=== PATIENT | male | born 1945 | race Caucasian/White ===

== ENCOUNTER 2017-04-11 14:56 | Emergency (ER) | payer MEDICARE, MEDICAID ==
[~2017-04-11] VITALS: Ht 165.1 cm; Wt 136.2 kg
[~2017-04-11 14:56] MED LIST: ADV1DS IH; ALBU8.5H2 IH; AMLO5TAB2 PO; ASP81TEC PO; ATOR40TA PO; BACL10TA PO; CITA10TA70 PO; CLON0.252 PO; CLON0.253 PO; CLON0.5T3 PO; CLON1TAB2 PO; CLON1TAB36 PO; ENAL5TAB PO; GBPN100C PO; GBPN300C PO; GBPN600T PO; LEVO175T31 PO; MAGN400T6 PO; METO-333 PO; OXYC-12 PO; OXYC1TAB95 PO; OXYC20TA63 PO; POLY17PO23 PO; PRD10T PO; PREG150C PO
[2017-04-11] MEDS ORDERED: ORPHENADRINE 60 MG/2 ML (NORFLEX) AMP IM STA (17:30)
[2017-04-11] MEDS ORDERED: morphine INJ 10 MG/ML 1ML (SYR OR VIAL) IM STA (17:30)
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
--- NOTE | 2017-04-11 19:06 | Diagnostic Imaging Report ---
PROCEDURE: CT lumbar spine without contrast. TECHNIQUE: Multiple contiguous axial images were obtained through the lumbar spine without the use of intravenous contrast. Sagittal and coronal reformations were then performed. INDICATION: History of lower back surgery with right leg weakness for one week, left leg paralysis. COMPARISON STUDIES: None FINDINGS: S-shaped scoliosis is present within the spine. Postoperative changes are present to the sacrum and ilium bilaterally. There appears to be some edema around the upper pole of the left kidney. Arteriosclerosis is present. No hydronephrosis seen. There is some wedging of the T11 and T12 vertebral bodies which appears to be chronic or possibly congenital. The L3-4 level demonstrates mild facet arthropathy. Mild narrowing of the right neural foramina and central canal present. The L4-5 level demonstrates vacuum disc with disc space narrowing and facet arthropathy. There is some hypertrophy of the ligamentum flavum. Moderate narrowing of the central canal and mild narrowing of the right neural foramina are present. L5-S1 level demonstrates facet arthropathy. There is mild to moderate narrowing of the left neural foramina. IMPRESSION: 1. Scoliosis and degenerative changes present in the lumbar spine as above. 2. There is some edema around the upper pole of the left kidney. 3. There is wedging of the T11 and T12 vertebral bodies which appears chronic or congenital. Dictated by: Dictated on workstation # [id number]
[2017-04-11 21:05] VITALS: BP 129/73
[2017-04-12] MEDS ORDERED: METF500T4 PO (13:52)
[2017-04-12] MEDS ORDERED: BACL10TA PO (13:52)
[2017-04-12] MEDS ORDERED: CITA40TA11 PO (13:52)
[2017-04-12] MEDS ORDERED: ASPI-983 PO (13:52)
[2017-04-12] MEDS ORDERED: ALBU18HF2 INH (13:52)
[2017-04-12] MEDS ORDERED: FURO20TA4 PO (13:52)
[2017-04-12] MEDS ORDERED: POTA10TA10 PO (13:52)
[2017-04-12] MEDS ORDERED: PREG225C PO (13:52)
[2017-04-12] MEDS ORDERED: CLON0.5T3 PO (13:52)
[2017-04-12] MEDS ORDERED: SODI30SP2 NS (13:52)
[2017-04-12] MEDS ORDERED: ATOR40TA70 PO (13:52)
[2017-04-12] MEDS ORDERED: CLON1TAB3 PO (13:52)
[2017-04-12] MEDS ORDERED: ALTERIL SLEEP AID PO (13:52)
[2017-04-12] MEDS ORDERED: LEVO150T6 PO (13:52)
[2017-04-12] MEDS ORDERED: CLON0.252 PO (13:52)
[2017-04-12] MEDS ORDERED: METO-333 PO (13:52)
[2017-04-12] MEDS ORDERED: RANI150T11 PO (13:52)
[2017-04-12] MEDS ORDERED: OXYC-465 PO (13:52)
[2017-04-22] MEDS ORDERED: PRD20T PO (08:14)
[2017-04-22] MEDS ORDERED: DOCU100C37 PO (08:14)
== END 2017-04-11 21:40 ==
LOC: EDUNIT# 14:56 → ER 14:57
DX: M47.26 Other spondylosis with radiculopathy, lumbar region (principal); M41.26 Other idiopathic scoliosis, lumbar region; G83.14 Monoplegia of lower limb affecting left nondominant side; E11.9 Type 2 diabetes mellitus without complications; I10 Essential (primary) hypertension; J44.9 Chronic obstructive pulmonary disease, unspecified; Z79.84 Long term (current) use of oral hypoglycemic drugs; Z79.82 Long term (current) use of aspirin; Z79.899 Other long term (current) drug therapy
CPT/HCPCS: 72131; 96372; 99285

== ENCOUNTER 2017-04-11 21:00 | Inpatient (IN) | payer MEDICARE, MEDICAID ==
[~2017-04-11] VITALS: Ht 172.7 cm; Wt 135.2 kg
[2017-04-11] MEDS: oxyCODONE/APAP 10/325MG (PERCOCET 10) TABLET PO PRN (23:21)
[2017-04-12 00:03] VITALS: BP 104/54
[2017-04-12 05:35] VITALS: BP 134/74
[2017-04-12 05:58] LABS: BASOPHILS % (AUTO) 1 % (0-10); EOSINOPHILS # (AUTO) 0.2 10^3/uL (0.0-0.3); EOSINOPHILS % (AUTO) 3 % (0-10); LYMPHOCYTES # (AUTO) 1.9 X 10^3 (1.0-4.0); LYMPHOCYTES % (AUTO) 32 % (12-44); MEAN CORPUSCULAR HEMOGLOBIN 27 PG (25-34); MEAN CORPUSCULAR HGB CONC 30 G/DL (32-36); MEAN CORPUSCULAR VOLUME 91 FL (80-99); MEAN PLATELET VOLUME 11.1 FL (7.4-10.4); MONOCYTES # (AUTO) 0.6 X 10^3 (0.0-1.0); MONOCYTES % (AUTO) 11 % (0-12); NEUTROPHILS # (AUTO) 3.1 X 10^3 (1.8-7.8); NEUTROPHILS % (AUTO) 54 % (42-75); PLATELET COUNT 168 10^3/uL (130-400); RED BLOOD COUNT 4.13 10^6/uL (4.35-5.85); RED CELL DISTRIBUTION WIDTH 13.9 % (10.0-14.5); WHITE BLOOD COUNT 5.8 10^3/uL (4.3-11.0)
[2017-04-12] MEDS: predniSONE 20 MG TAB PO SCH (06:12)
[2017-04-12] MEDS: oxyCODONE/APAP 10/325MG (PERCOCET 10) TABLET PO PRN ×4 (06:12→21:22)
[2017-04-12 06:28] LABS: ALBUMIN 3.5 G/DL (3.2-4.5); BILIRUBIN,TOTAL 0.2 MG/DL (0.1-1.0); CALCIUM 8.6 MG/DL (8.5-10.1); CREATININE SERUM 1.23 MG/DL (0.60-1.30); POTASSIUM 4.4 MMOL/L (3.6-5.0); TOTAL PROTEIN 6.7 G/DL (6.4-8.2)
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
[2017-04-12] MEDS ORDERED: PREGABALIN 75 MG (LYRICA) CAP PO SCH (09:00)
[2017-04-12] MEDS ORDERED: morphine ER 15 MG (MS CONTIN) TAB PO SCH (09:00)
[2017-04-12] MEDS ORDERED: morphine ER 15 MG (MS CONTIN) TAB PO ONE (09:00)
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
--- NOTE | 2017-04-12 13:21 | Physical Therapy Progress Note ---
Therapy Progress Note PT in at scheduled time, 1300, for therapy, however, patient declined stating, "I want to eat and watch TV. You have all afternoon to come back and see me." PT educated patient on therapy schedule and expectations on acute rehab, however , patient dismissed PT. 1 visit ref DAMIR COLON PT April 12, 2017 13:21
[2017-04-12] MEDS ORDERED: FURO20TA4 PO (13:52)
[2017-04-12] MEDS ORDERED: POTA10TA10 PO (13:52)
[2017-04-12] MEDS ORDERED: ATOR40TA70 PO (13:52)
[2017-04-12] MEDS ORDERED: ALBU18HF2 INH (13:52)
[2017-04-12] MEDS ORDERED: ALTERIL SLEEP AID PO (13:52)
[2017-04-12] MEDS ORDERED: CLON0.5T3 PO (13:52)
[2017-04-12] MEDS ORDERED: CLON0.252 PO (13:52)
[2017-04-12] MEDS ORDERED: PREG225C PO (13:52)
[2017-04-12] MEDS ORDERED: METO-333 PO (13:52)
[2017-04-12] MEDS ORDERED: CITA40TA11 PO (13:52)
[2017-04-12] MEDS ORDERED: ASPI-983 PO (13:52)
[2017-04-12] MEDS ORDERED: LEVO150T6 PO (13:52)
[2017-04-12] MEDS ORDERED: RANI150T11 PO (13:52)
[2017-04-12] MEDS ORDERED: CLON1TAB3 PO (13:52)
[2017-04-12] MEDS ORDERED: BACL10TA PO (13:52)
[2017-04-12] MEDS ORDERED: OXYC-465 PO (13:52)
[2017-04-12] MEDS ORDERED: SODI30SP2 NS (13:52)
[2017-04-12] MEDS ORDERED: METF500T4 PO (13:52)
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
[2017-04-12] MEDS ORDERED: [UNRECOGNIZED DRUG - OTHER] PO PRN (15:00)
[2017-04-12] MEDS ORDERED: RX-ALBUTEROL INHALER (VENTOLIN HFA) 18 GM IH PRN (15:00)
[2017-04-12] MEDS ORDERED: SALINE NASAL SPRAY (OCEAN) 45 ML BTL NS PRN (15:00)
[2017-04-12] MEDS ORDERED: RT-ALBUTEROL SULF 2.5 MG/3 ML PRE-MIX VIAL IH PRN (15:15)
[2017-04-12] MEDS: clonazePAM 0.5 MG (KlonoPIN) TAB PO SCH ×2 (16:07)
--- NOTE | 2017-04-12 16:31 | Physical Therapy Daily Note ---
PT Daily Note-Current Subjective Pt laying Supine in bed with head raised upon arrival. Pt reports extreme pain in R hip/Sciatic radiating into calf and L calf cramping like [place]. Pt agrees to Supine Ex and stretching for PT. Pain Numeric Pain Scale: 10-Worst Possible Pain Location: Right Location Body Site: Hip Pain Description: Sharp Comment: See Subjective for comment Mental Status Patient Orientation: Person, Place, Time, Situation Attachments: Oxygen Transfers Functional [place] Measure 0=Not Assessed/NA 4=Minimal Assistance 1=Total Assistance 5=Supervision or Setup 2=Maximal Assistance 6=Modified [place] 3=Moderate Assistance 7=Complete IndependenceIRFPAI Quality Coding Scale 6 Independent with activity with or without an assistive device 5 Patient requires set up or clean up by helper. Patient completes activity by themselves 4 Supervision or touching assist (CGA). [place] provide cues , steadying assist 3 The helper provides less than half the effort to complete the activity 2 The helper provides more than half the effort to complete the activity 1 Dependent. The helper does all the effort to complete an activity 7 Patient refused to complete or attempt activity 9 The patient did not perform the activity before the current illness or injury 88 Not attempted due to Medical conditions or safety concerns Scootin Exercises Supine Ex: Ankle pumps, Quad Set, Heel Slides, Straight leg raise, Hip abd/add Supine Reps: 15 Treatments Pt completes Supine Ex in bed AROM with increase in pain on RLE and PROM-AAROM with increase in pain on LLE. Pt yells/grunts during tx. PT also stretches pt' s B hamstrings during tx. Pt is Supine in bed at end of tx with all needs met. Assessment Current Status: Poor Progress Pt is weak, has difficulty with ROM, and fatigues easy. Pt reports great pain during tx and will receive CT Scan after tx. PT Short Term Goals Short Term Goals Time Frame: Apr 19, 2017 Wheelchair (FIM): 5 Wheelchair distance (FIM): 3=150 ft Wheelchair Distance: 200' Wheelchair Level of Assist: 5 PT Senior Care Goals Senior Care Goals PT Geodetic Computator Goals Time Frame: May 10, 2017 Transfers (B,C,W/C) (FIM): 5 Sit to Lying (QC): 5 Lying-Sitting on Side/Bed(QC): 5 Sit to Stand (QC): 9 Rollin Roll Left to Right (QC): 5 Chair/Ofq-aj-Cumch Xfer(QC): 5 Car Transfer (QC): 9 Does the Patient Walk: No and Walking Goal NOT indicated Does the Pt use WC or Scooter?: Yes Wheelchair (FIM): 5 Wheelchair distance (FIM): 3=150 ft Distance: 300' Wheelchair Level of Assist: 5 Wheel 50 feet with 2 turns (QC: 5 1 Step (curb) (QC): 9 4 Steps (QC): 9 12 Steps (QC): 9 Picking up an Object (QC): 4 PT Plan Problem List Problem List: Activity Tolerance, Functional Strength, Safety, Balance, Gait, Transfer, Bed Mobility, ROM Treatment/Plan Treatment Plan: Continue Plan of Care Treatment Plan: Bed Mobility, Education, Functional Activity Carolyn, Functional Strength, Group Therapy, Safety, Therapeutic Exercise, Transfers Treatment Duration: May 10, 2017 Visits Per Week: 11 Minutes/Day (M-F): 60-90 Minutes/Day (Sat/Adame): PRN Safety Risks/Education Patient Education: Transfer Techniques, Correct Positioning, Disease Process, Safety Issues Teaching Recipient: Patient Teaching Methods: Discussion Response to Teaching: Verbalize Understanding Time/GCodes Time In: 1430 Time Out: 1500 Total Billed Treatment Time: 30 Total Billed Treatment visit, EX x2 (30m) MEGHANA FERNÁNDEZ PTA April 12, 2017 16:31
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
[2017-04-12] MEDS: metFORMIN 500 MG (GLUCOPHAGE) TAB PO SCH (17:47)
[2017-04-12 17:56] VITALS: BP 148/54
[2017-04-12] MEDS: BACLOFEN 10 MG (LIORESAL) TAB PO PRN (18:03)
[2017-04-12] MEDS ORDERED: clonazePAM 0.5 MG (KlonoPIN) TAB PO SCH (21:00)
[2017-04-12] MEDS ORDERED: meTOprolol TARTRATE 25 MG (LOPRESSOR) TABLET PO SCH (21:00)
[2017-04-12] MEDS: meTOprolol TARTRATE 25 MG (LOPRESSOR) TABLET PO SCH (21:22)
[2017-04-12] MEDS: clonazePAM 1 MG (KlonoPIN) TAB PO SCH (21:22)
[2017-04-12] MEDS: PREGABALIN 75 MG (LYRICA) CAP PO SCH (21:22)
[2017-04-12] MEDS: ATORVASTATIN 40 MG (LIPITOR) TABLET PO SCH (21:22)
--- NOTE | 2017-04-12 21:44 | PM&R Post Admission Assessment ---
Post Admission Physician Asses The preadmission screen agrees with the post admission assessment that the patient is a good candidate for inpatient rehabilitation. The patient will have a comprehensive program of inpatient rehabilitation with a goal of maximizing level of functional independence prior to discharge [facility]ck to [facility] The patient will have PT/OT ninety minutes per day, each discipline, five days a week for gait strengthening, conditioning, balance, ADLs, any patient/family/caregiver training necessary. Speech therapy to do cognitive assessment and treat as indicted. Rehabilitation nursing to assist with bowel, bladder, skin, wound care, medication administration, pain management. Painting Manager to assist with discharge planning, community reentry. SCD's for DVT prophylaxis. He appears to be well motivated to participate in three hours of therapy a day. He should be able to tolerate three hours of therapy a day from a medical standpoint. He should benefit from the three hours of therapy a day. He has a reasonable discharge plan, reasonable discharge rehabilitation goals and a supportive family. He has various comorbidities that need to be closely monitored with medications and treatments adjusted on a daily basis as needed. These include: DM Chronic pain NeuropTHIC PAIN Barriers to discharge for this patient who had been independent prior to this are for him to be modified independent to supervision for ADLs and mobility skills prior to discharge BACK TO [facility], so as to lessen the burden of the caregivers. Risks for this patient include: 1. Fall 2. Fracture 3. DVT 4. Pulmonary embolism 5. pOORLY CONTROLLED dm 6. Skin breakdown 7. Contractures 8. Poorly controlled pain 9. Urinary retention 10. UTI 11. Respiratory infection 12. Aspiration Estimated Length of Stay: 14 days Prognosis: Rehab prognosis appears good for goal of discharge BACK TO [facility] modified independent to supervision for ADLs and mobility skills. HARLEY NELSON MD April 12, 2017 21:44
[2017-04-12] MEDS: RT-ADVAIR HFA 115/21 MCG PER PUFF IH SCH (23:01)
[2017-04-13 05:27] VITALS: BP 129/73
[2017-04-13] MEDS: KCL 10 MEQ TAB (MICRO K) PO SCH (06:20)
[2017-04-13] MEDS: predniSONE 20 MG TAB PO SCH (06:21)
[2017-04-13] MEDS: metFORMIN 500 MG (GLUCOPHAGE) TAB PO SCH ×2 (06:21→17:55)
[2017-04-13] MEDS: LEVOTHYROXINE 150 MCG (LEVOTHROID) TAB PO SCH (06:21)
[2017-04-13 06:45] LABS: MEAN PLATELET VOLUME 11.1 FL (7.4-10.4); RED BLOOD COUNT 4.08 10^6/uL (4.35-5.85); WHITE BLOOD COUNT 9.2 10^3/uL (4.3-11.0)
[2017-04-13] MEDS: RT-ADVAIR HFA 115/21 MCG PER PUFF IH SCH ×2 (06:45→18:46)
[2017-04-13 07:06] LABS: ANION GAP 11 MMOL/L (5-14); BLOOD UREA NITROGEN 21 MG/DL (7-18); BUN/CREATININE RATIO 20; CALCIUM 8.6 MG/DL (8.5-10.1); CARBON DIOXIDE 29 MMOL/L (21-32); CHLORIDE 102 MMOL/L (98-107); CREATININE SERUM 1.07 MG/DL (0.60-1.30); GFR ESTIMATED > 60; GLUCOSE 118 MG/DL (70-105); SODIUM 142 MMOL/L (135-145)
[2017-04-13 07:28] LABS: THYROID STIMULATING HORMONE 0.37 UIU/ML (0.35-4.94)
[2017-04-13] MEDS ORDERED: clonazePAM 0.5 MG (KlonoPIN) TAB PO SCH ×2 (08:00)
[2017-04-13] MEDS: clonazePAM 0.5 MG (KlonoPIN) TAB PO SCH ×4 (08:08→13:14)
[2017-04-13] MEDS: PREGABALIN 75 MG (LYRICA) CAP PO SCH ×2 (08:11→20:26)
[2017-04-13] MEDS: FUROSEMIDE 20 MG (LASIX) TAB PO SCH (08:12)
[2017-04-13] MEDS: FAMOTIDINE 20 MG (PEPCID) TABLET PO SCH (08:12)
[2017-04-13] MEDS: ASPIRIN E.C. 81 MG (ECOTRIN) TAB PO SCH (08:13)
[2017-04-13] MEDS: meTOprolol TARTRATE 25 MG (LOPRESSOR) TABLET PO SCH ×2 (08:13→20:27)
[2017-04-13] MEDS: oxyCODONE/APAP 10/325MG (PERCOCET 10) TABLET PO PRN ×3 (08:18→20:26)
--- NOTE | 2017-04-13 08:34 | Progress Note (SOAP) ---
Subjective Subjective/Events-last exam lumbar radiculopathy. Sciatica. Patient feels she is doing better. Patient diabetes under good control. Patient lost much weight by diet Objective Exam Vital Signs Date Time Temp Pulse Resp B/P (MAP) Pulse Ox O2 Delivery O2 Flow Rate FiO2 04/13/17 06:45 97 4.00 04/13/17 05:27 97.3 63 18 129/73 97 4.00 04/12/17 23:01 86 4.00 04/12/17 20:15 3.00 04/12/17 17:56 97.5 76 20 148/54 95 2.50 I & O 04/13/17 07:00 Intake Total 1760 ml Output Total 1800 ml Balance -40 ml Capillary Refill : General Appearance: No Apparent Distress, WD/WN HEENT: Normal ENT Inspection Respiratory: Chest Non Tender Results Lab Laboratory Tests 04/13/17 06:00 Laboratory Tests 04/13/17 06:00: White Blood Count 9.2, Red Blood Count 4.08L, Hemoglobin 11.4L, Hematocrit 37L, Mean Corpuscular Volume 91, Mean Corpuscular Hemoglobin 28, Mean Corpuscular Hemoglobin Concent 31L, Red Cell Distribution Width 14.0, Platelet Count 198, Mean Platelet Volume 11.1H, Sodium Level 142, Potassium Level 4.0, Chloride Level 102, Carbon Dioxide Level 29, Anion Gap 11, Blood Urea Nitrogen 21H, Creatinine 1.07, Estimat Glomerular Filtration Rate > 60, BUN/Creatinine Ratio 20, Glucose Level 118H, Hemoglobin A1c 5.7, Calcium Level 8.6, Thyroid Stimulating Hormone (TSH) 0.37 Assessment/Plan Assessment/Plan Assess & Plan/Chief Complaint lumbar radiculopathy. Diabetes. Patient positive and wanting to work Clinical Quality Measures DVT/VTE Risk/Contraindication: Risk Factor Score Per Nursin RFS Level Per Nursing on Admit: 4+=Very High MILAD MULLER DO April 13, 2017 08:34
--- NOTE | 2017-04-13 09:30 | Physical Therapy Daily Note ---
PT Daily Note-Current Subjective Patient in bed pre tx, agrees to PT, has pain of 8/10 in right hip and 6/10 in left leg. PT will be getting and fitting a power wheelchair to patient this morning. Patient has his own power wheelchair at home and will talk with oncology social work and see if he can get that here. Appearance Patient in bed post tx with nurse call, phone, tray, all needs met. Mental Status Patient Orientation: Normal For Age Attachments: Oxygen Transfers Functional [place] Measure 0=Not Assessed/NA 4=Minimal Assistance 1=Total Assistance 5=Supervision or Setup 2=Maximal Assistance 6=Modified [place] 3=Moderate Assistance 7=Complete IndependenceIRFPAI Quality Coding Scale 6 Independent with activity with or without an assistive device 5 Patient requires set up or clean up by helper. Patient completes activity by themselves 4 Supervision or touching assist (CGA). [place] provide cues , steadying assist 3 The helper provides less than half the effort to complete the activity 2 The helper provides more than half the effort to complete the activity 1 Dependent. The helper does all the effort to complete an activity 7 Patient refused to complete or attempt activity 9 The patient did not perform the activity before the current illness or injury 88 Not attempted due to Medical conditions or safety concerns Transfers (B, C, W/C) (FIM): 2 Scootin Rollin Supine to/from Sit: 4 Sit to/from Stand: 2 Bed to/from Chair: 2 stand pivot max assist, patient has a lot of trouble pivoting on his right leg, he cannot bear much if any weight on his left leg Wheelchair Training Does the Pt Use a Wheelchair?: Yes Wheelchair (FIM): 2 Distance: 50'x2 Wheelchair Level of Assist: 5 Type of Wheelchair: Motorized Patient has a little trouble driving a rear drive wheelchair but he did not need assist. A bigger seatbelt will need to be put on the wheelchair and the foot rests are not comfortable because they do not extend. We also do not have an oxygen tank sling to go on the back but hopefully we can get one soon. Wheelchair was adjusted to patient as best as we could but is still very uncomfortable to patient and he did not want to stay in it for any length of time. Patient transferred back to bed. Treatments bed mobility and transfers, wheelchair mobility and adjusting Assessment Current Status: Fair Progress no change in transfers, wheelchair was obtained but patient probably will not be able to use it PT Short Term Goals Short Term Goals Time Frame: Apr 19, 2017 Wheelchair (FIM): 5 Wheelchair distance (FIM): 3=150 ft Wheelchair Distance: 200' Wheelchair Level of Assist: 5 PT Senior Care Goals Senior Care Goals PT Senior Care Goals Time Frame: May 10, 2017 Transfers (B,C,W/C) (FIM): 5 Sit to Lying (QC): 5 Lying-Sitting on Side/Bed(QC): 5 Sit to Stand (QC): 9 Rollin Roll Left to Right (QC): 5 Chair/Lvq-zf-Fjjfq Xfer(QC): 5 Car Transfer (QC): 9 Does the Patient Walk: No and Walking Goal NOT indicated Does the Pt use WC or Scooter?: Yes Wheelchair (FIM): 5 Wheelchair distance (FIM): 3=150 ft Distance: 300' Wheelchair Level of Assist: 5 Wheel 50 feet with 2 turns (QC: 5 1 Step (curb) (QC): 9 4 Steps (QC): 9 12 Steps (QC): 9 Picking up an Object (QC): 4 PT Plan Problem List Problem List: Activity Tolerance, Functional Strength, Safety, Balance, Transfer, Bed Mobility Treatment/Plan Treatment Plan: Continue Plan of Care Treatment Plan: Bed Mobility, Education, Functional Activity Carolyn, Functional Strength, Group Therapy, Safety, Therapeutic Exercise, Transfers Treatment Duration: May 10, 2017 Visits Per Week: 11 Minutes/Day (M-F): 60-90 Minutes/Day (Sat/Adame): PRN Safety Risks/Education Patient Education: Transfer Techniques, Correct Positioning, W/C Management, Safety Issues Teaching Recipient: Patient Teaching Methods: Demonstration, Discussion Response to Teaching: Reinforcement Needed Time/GCodes Time In: 830 Time Out: 930 Total Billed Treatment Time: 60 Total Billed Treatment 1 visit FA 15' WC 45' ADA CARRILLO PT April 13, 2017 09:30
--- NOTE | 2017-04-13 11:45 | Occupational Ther Daily Note ---
OT Current Status-Daily Note Subjective Pt alert, lying in bed. Pt finishing up breakfast. Pt agreed to therapy after encouragement. Pt c/o muscle spasms and ask nrsg for pain meds. Mental Status/Objective Patient Orientation: Person, Place, Time, Situation Functional [place] Measure 0=Not Assessed/NA 4=Minimal Assistance 1=Total Assistance 5=Supervision or Setup 2=Maximal Assistance 6=Modified [place] 3=Moderate Assistance 7=Complete [place] ADL-Treatment Pt stated that he wanted a sponge bath and that his back hurt to bad to sit on EOB. Pt took sponge bath. After set up, pt was able to bathe upper body and nasrin area. Pt required assistance for LE's and buttocks. Pt required assistance to position L LE when rolling to R side. Pt able to roll to L side with min A. After set up, pt able to don shirt by self. Pt requires assist to doff underwear. Assist to don lower body clothing over feet and pull up to knees then pt is able to pull up to stomach. Assist to pull up pants/ underpants over buttocks while he stayed in sidelying with bedrails. Dependent to don/doff socks. Pt took increased time to complete all ADLs. Nrsg came in and assisted HANSON to scoot pt up in bed. Pt demonstrates good UE ROM. After therapy, pt lying in bed with call light/phone in reach. All needs met in room. Functional [place] Measure 0=Not Assessed/NA 4=Minimal Assistance 1=Total Assistance 5=Supervision or Setup 2=Maximal Assistance 6=Modified [place] 3=Moderate Assistance 7=Complete IndependenceIRFPAI Quality Coding Scale 6 Independent with activity with or without an assistive device 5 Patient requires set up or clean up by helper. Patient completes activity by themselves 4 Supervision or touching assist (CGA). [place] provide cues , steadying assist 3 The helper provides less than half the effort to complete the activity 2 The helper provides more than half the effort to complete the activity 1 Dependent. The helper does all the effort to complete an activity 7 Patient refused to complete or attempt activity 9 The patient did not perform the activity before the current illness or injury 88 Not attempted due to Medical conditions or safety concerns Eating (FIM): 6 Eating (QC): 6 Bathing (FIM): 3 Bathing Location: L Arm, R Arm, Chest, Abdomen, Perineal Area Upper Body (FIM): 5 Upper Body Dressing (QC): 5 Lower Body Dressing (FIM): 3 Lower Body Dressing (QC): 2 OT Short Term Goals Short Term Goals Time Frame: Apr 26, 2017 Lower Body Dressing(FIM): 4 Toilet/Commode Transfer(FIM): 3 Shower Transfer(FIM): 3 Additional Short Term Goals: 2-Verbalize Understanding, 3-ImproveStrength/Carolyn 1=Demonstrate adherence to instructed precautions during ADL tasks. 2=Patient will verbalize/demonstrate understanding of assistive devices/ modifications for ADL. 3=Patient will improve strength/tolerance for activity to enable patient to perform ADL's. OT Financial Planning Analyst Goals Financial Planning Analyst Goals Time Frame: May 10, 2017 Eating (FIM): 7 Eating (QC): 7 Groomin Oral Hygiene (QC): 6 Bathing(FIM): 5 Shower/Bathe Self (QC): 5 Upper Body Dressing(FIM): 6 Upper Body Dressing (QC): 6 Lower Body Dressing(FIM): 6 Lower Body Dressing (QC): 6 On/Off Footwear (QC): 6 Toileting(FIM): 6 Toileting Hygiene (QC): 6 Toilet/Commode Transfer(FIM): 6 Toilet/Commode Transfer (QC): 6 Shower Transfer(FIM): 6 Additional Goals: 2-Verbalize Understanding, 3-ImproveStrength/Carolyn 1=Demonstrate adherence to instructed precautions during ADL tasks. 2=Patient will verbalize/demonstrate understanding of assistive devices/ modifications for ADL. 3=Patient will improve strength/tolerance for activity to enable patient to perform ADL's. OT Education/Plan Problem List/Assessment Pt would benefit from skilled OT to increase his independence in basic self care to allow him to safely return to his home to live as independently as possible and to decrease caregiver burden. Discharge Recommendations Plan/Recommendations: Continue POC Treatment Plan/Plan of Care Patient would benefit from OT for education, treatment and training to promote independence in ADL's, mobility, safety and/or upper extremity function for ADL' s. Plan of Care: ADL Retraining, Functional Mobility, Group Exercise/Act as Ind ( education, exercise, mobility, functional activities, socialization), UE Neuromus Re-Ed/Coord Treatment Duration: May 10, 2017 Visits Per Week: 10-11 Minutes/Day (M-F): 75-90 Minutes/Day (Sat/Adame): PRN Agreement: Yes Rehab Potential: Fair Time/GCodes Start Time: 07:00 Stop Time: 08:30 Total Time Billed (hr/min): 90 Billed Treatment Time 1 visit-ADL 6 (90 min) LELE LOZA April 13, 2017 11:45
--- NOTE | 2017-04-13 16:06 | Physical Therapy Daily Note ---
PT Daily Note-Current Subjective Pt laying Supine in bed upon arrival. Pt agrees to PT this afternoon. Pain Numeric Pain Scale: 8 Location: Right Location Body Site: Hip Pain Description: Sharp Comment: Pt reports Scaitic pain on R side and cramping pain in L thigh & calf. Mental Status Patient Orientation: Person, Place, Situation Attachments: Oxygen, Mclean Catheter Transfers Functional [place] Measure 0=Not Assessed/NA 4=Minimal Assistance 1=Total Assistance 5=Supervision or Setup 2=Maximal Assistance 6=Modified [place] 3=Moderate Assistance 7=Complete IndependenceIRFPAI Quality Coding Scale 6 Independent with activity with or without an assistive device 5 Patient requires set up or clean up by helper. Patient completes activity by themselves 4 Supervision or touching assist (CGA). [place] provide cues , steadying assist 3 The helper provides less than half the effort to complete the activity 2 The helper provides more than half the effort to complete the activity 1 Dependent. The helper does all the effort to complete an activity 7 Patient refused to complete or attempt activity 9 The patient did not perform the activity before the current illness or injury 88 Not attempted due to Medical conditions or safety concerns Exercises Supine Ex: Ankle pumps, Heel Slides, Straight leg raise, Hip abd/add Supine Reps: 15 Treatments Pt completes Supine Ex in bed as well as B hamstring stretching. Pt is Supine in bed at end of tx with all needs met. Assessment Current Status: Fair Progress Pt is reporting less consistent pain in both sides. Pt is improving with activity tolerance as well. PT Short Term Goals Short Term Goals Time Frame: Apr 19, 2017 Wheelchair (FIM): 5 Wheelchair distance (FIM): 3=150 ft Wheelchair Distance: 50'x2 Wheelchair Level of Assist: 5 PT Nursing Home Goals Wireless Watcher Goals PT Wireless Watcher Goals Time Frame: May 10, 2017 Transfers (B,C,W/C) (FIM): 5 Sit to Lying (QC): 5 Lying-Sitting on Side/Bed(QC): 5 Sit to Stand (QC): 9 Rollin Roll Left to Right (QC): 5 Chair/Gbk-ld-Szxyb Xfer(QC): 5 Car Transfer (QC): 9 Does the Patient Walk: No and Walking Goal NOT indicated Does the Pt use WC or Scooter?: Yes Wheelchair (FIM): 5 Wheelchair distance (FIM): 3=150 ft Distance: 300' Wheelchair Level of Assist: 5 Wheel 50 feet with 2 turns (QC: 5 1 Step (curb) (QC): 9 4 Steps (QC): 9 12 Steps (QC): 9 Picking up an Object (QC): 4 PT Plan Problem List Problem List: Activity Tolerance, Functional Strength, Safety, Balance, Gait, Transfer, Bed Mobility Treatment/Plan Treatment Plan: Continue Plan of Care Treatment Plan: Bed Mobility, Education, Functional Activity Carolyn, Functional Strength, Group Therapy, Safety, Therapeutic Exercise, Transfers Treatment Duration: May 10, 2017 Visits Per Week: 11 Minutes/Day (M-F): 60-90 Minutes/Day (Sat/Adame): PRN Safety Risks/Education Patient Education: Transfer Techniques, Correct Positioning, Disease Process, Safety Issues Teaching Recipient: Patient Teaching Methods: Discussion Response to Teaching: Verbalize Understanding Time/GCodes Time In: 1300 Time Out: 1330 Total Billed Treatment Time: 30 Total Billed Treatment visit, EX x2 (30m) MEGHANA FERNÁNDEZ PTA April 13, 2017 16:06
[2017-04-13 17:52] VITALS: BP 128/66
[2017-04-13] MEDS: ATORVASTATIN 40 MG (LIPITOR) TABLET PO SCH (20:27)
[2017-04-13] MEDS: clonazePAM 1 MG (KlonoPIN) TAB PO SCH (20:27)
[2017-04-13] MEDS: MELATONIN 3 MG TABLET PO PRN (20:30)
[2017-04-14] MEDS: oxyCODONE/APAP 10/325MG (PERCOCET 10) TABLET PO PRN ×5 (04:29→21:13)
[2017-04-14 05:24] VITALS: BP 131/75
[2017-04-14] MEDS: predniSONE 20 MG TAB PO SCH (06:03)
[2017-04-14] MEDS: KCL 10 MEQ TAB (MICRO K) PO SCH (06:03)
[2017-04-14] MEDS: LEVOTHYROXINE 150 MCG (LEVOTHROID) TAB PO SCH (06:03)
[2017-04-14] MEDS: metFORMIN 500 MG (GLUCOPHAGE) TAB PO SCH ×2 (06:03→16:43)
[2017-04-14] MEDS: RT-ADVAIR HFA 115/21 MCG PER PUFF IH SCH ×2 (07:23→19:05)
--- NOTE | 2017-04-14 08:06 | Progress Note (SOAP) ---
Subjective Subjective/Events-last exam lumbar radiculopathy. Sciatica. Pain is improving. Diabetes. Patient feels he is doing better Objective Exam Vital Signs Date Time Temp Pulse Resp B/P (MAP) Pulse Ox O2 Delivery O2 Flow Rate FiO2 04/14/17 07:23 95 4.00 04/14/17 05:24 96.8 57 16 131/75 97 4.00 04/13/17 20:05 4.00 04/13/17 18:47 92 4.00 04/13/17 17:52 97.8 51 20 128/66 96 4.00 I & O 04/14/17 07:00 Intake Total 1410 ml Output Total 1775 ml Balance -365 ml Capillary Refill : General Appearance: No Apparent Distress, WD/WN Assessment/Plan Assessment/Plan Assess & Plan/Chief Complaint lumbar radiculopathy. Diabetes. Patient positive and wanting to work. . 04/14/17. Lumbar radiculopathy. Diabetes. Pain is improving. Patient feels he is getting better Clinical Quality Measures DVT/VTE Risk/Contraindication: Risk Factor Score Per Nursin RFS Level Per Nursing on Admit: 4+=Very High MILAD MULLER DO Apr 14, 2017 08:06
[2017-04-14] MEDS: FUROSEMIDE 20 MG (LASIX) TAB PO SCH (08:36)
[2017-04-14] MEDS: clonazePAM 0.5 MG (KlonoPIN) TAB PO SCH ×4 (08:36→12:43)
[2017-04-14] MEDS: ASPIRIN E.C. 81 MG (ECOTRIN) TAB PO SCH (08:37)
[2017-04-14] MEDS: FAMOTIDINE 20 MG (PEPCID) TABLET PO SCH (08:37)
[2017-04-14] MEDS: PREGABALIN 75 MG (LYRICA) CAP PO SCH ×2 (08:37→20:23)
[2017-04-14] MEDS: meTOprolol TARTRATE 25 MG (LOPRESSOR) TABLET PO SCH ×2 (08:42→20:25)
--- NOTE | 2017-04-14 11:15 | Occupational Ther Daily Note ---
OT Current Status-Daily Note Subjective Pt seen in room, up in bed, agreeable to OT. Pt reported R leg pain is less today (did not rate or describe). Appearance Alert, cooperative Mental Status/Objective Functional [place] Measure 0=Not Assessed/NA 4=Minimal Assistance 1=Total Assistance 5=Supervision or Setup 2=Maximal Assistance 6=Modified [place] 3=Moderate Assistance 7=Complete [place] ADL-Treatment All ADLs took longer than usual due to frequent recovery periods needed, especially when he has been reaching forward to get to his feet. O2 at 4L today which is an increase. Functional [place] Measure 0=Not Assessed/NA 4=Minimal Assistance 1=Total Assistance 5=Supervision or Setup 2=Maximal Assistance 6=Modified [place] 3=Moderate Assistance 7=Complete IndependenceIRFPAI Quality Coding Scale 6 Independent with activity with or without an assistive device 5 Patient requires set up or clean up by helper. Patient completes activity by themselves 4 Supervision or touching assist (CGA). [place] provide cues , steadying assist 3 The helper provides less than half the effort to complete the activity 2 The helper provides more than half the effort to complete the activity 1 Dependent. The helper does all the effort to complete an activity 7 Patient refused to complete or attempt activity 9 The patient did not perform the activity before the current illness or injury 88 Not attempted due to Medical conditions or safety concerns Grooming (FIM): 5 (setup to wash face and hands. Combed hair indep.) Bathing (FIM): 4 (Sponge bath, long sitting in bed. Pt was able to wash and dry all parts except bottom and back. Able to roll to his L side without assistance to get bottom washed - he tried but was just not able to get it. ) Upper Body (FIM): 5 (setup to doff and don t-shirt, in bed. Uses bed rails to pull self up to sitting) Lower Body Dressing (FIM): 4 (Able to bridge slightly and roll enough to pull pants down and then move to long sitting to get pants off feet, supervision. Able to get slipper socks off and on. Able to get pants and underwear over feet in long sitting, using bed rails and HOB up. Can pull pants up to thighs and bridge a little on R side to help pull them up. Help needed to get pants up in back. He can roll to his L side without help, using bed rail but needs a little help to move L leg when rolling to his R side. ) Toileting (FIM): 5 (Able to use urinal and manage clothing, no spilling, in bed , but not able to empty urinal) Discussion on what he needs to be able to do in order to go back to [place]. Pt understands transfers will be significant for toileting, bathing and dressing. Pt left up in bed, 4 rails up, call light present, O2 in place, all needs met. Education OT Patient Education: Modified ADL techniques, Progress toward Goal/Update tx plan, Purpose of tx/functional activities Teaching Recipient: Patient Teaching Methods: Discussion Response to Teaching: Verbalize Understanding, Return Demonstration OT Short Term Goals Short Term Goals Time Frame: Apr 26, 2017 Lower Body Dressing(FIM): 4 Toilet/Commode Transfer(FIM): 3 Shower Transfer(FIM): 3 Additional Short Term Goals: 2-Verbalize Understanding, 3-ImproveStrength/Carolyn 1=Demonstrate adherence to instructed precautions during ADL tasks. 2=Patient will verbalize/demonstrate understanding of assistive devices/ modifications for ADL. 3=Patient will improve strength/tolerance for activity to enable patient to perform ADL's. OT Alf Goals Instructor [employer] Goals Time Frame: May 10, 2017 Eating (FIM): 7 Eating (QC): 7 Groomin Oral Hygiene (QC): 6 Bathing(FIM): 5 Shower/Bathe Self (QC): 5 Upper Body Dressing(FIM): 6 Upper Body Dressing (QC): 6 Lower Body Dressing(FIM): 6 Lower Body Dressing (QC): 6 On/Off Footwear (QC): 6 Toileting(FIM): 6 Toileting Hygiene (QC): 6 Toilet/Commode Transfer(FIM): 6 Toilet/Commode Transfer (QC): 6 Shower Transfer(FIM): 6 Additional Goals: 2-Verbalize Understanding, 3-ImproveStrength/Carolyn 1=Demonstrate adherence to instructed precautions during ADL tasks. 2=Patient will verbalize/demonstrate understanding of assistive devices/ modifications for ADL. 3=Patient will improve strength/tolerance for activity to enable patient to perform ADL's. OT Education/Plan Problem List/Assessment Pt would benefit from skilled OT to increase his independence in basic self care to allow him to safely return to his home to live as independently as possible and to decrease caregiver burden. Discharge Recommendations Plan/Recommendations: Continue POC Treatment Plan/Plan of Care Patient would benefit from OT for education, treatment and training to promote independence in ADL's, mobility, safety and/or upper extremity function for ADL' s. Plan of Care: ADL Retraining, Functional Mobility, Group Exercise/Act as Ind ( education, exercise, mobility, functional activities, socialization), UE Neuromus Re-Ed/Coord Treatment Duration: May 10, 2017 Visits Per Week: 10-11 Minutes/Day (M-F): 75-90 Minutes/Day (Sat/Adame): PRN Agreement: Yes Rehab Potential: Fair Time/GCodes Start Time: 08:30 Stop Time: 10:00 Total Time Billed (hr/min): 90 Billed Treatment Time visit, 90 minutes TIAGO TIM OT Apr 14, 2017 11:15
--- NOTE | 2017-04-14 12:00 | Physical Therapy Daily Note ---
PT Daily Note-Current Subjective Pt laying Supine in bed upon arrival. Pt agrees to PT and seems more agreeable to PT today. Mental Status Patient Orientation: Person, Place, Situation Attachments: Oxygen Transfers Functional [place] Measure 0=Not Assessed/NA 4=Minimal Assistance 1=Total Assistance 5=Supervision or Setup 2=Maximal Assistance 6=Modified [place] 3=Moderate Assistance 7=Complete IndependenceIRFPAI Quality Coding Scale 6 Independent with activity with or without an assistive device 5 Patient requires set up or clean up by helper. Patient completes activity by themselves 4 Supervision or touching assist (CGA). [place] provide cues , steadying assist 3 The helper provides less than half the effort to complete the activity 2 The helper provides more than half the effort to complete the activity 1 Dependent. The helper does all the effort to complete an activity 7 Patient refused to complete or attempt activity 9 The patient did not perform the activity before the current illness or injury 88 Not attempted due to Medical conditions or safety concerns Scootin Supine to/from Sit: 4 Sit to/from Stand: 4 Sit to Stand (QC): 4 Chair/Ocq-gq-Iwnfn Xfer(QC): 3 Bed to/from Chair: 3 Weight Bearing Weight Bearing Restriction: Full Weight Bearing Location Restriction: LE Bilateral Wheelchair Training Does the Pt Use a Wheelchair?: Yes Wheelchair Distance: 0=792-72 ft Distance: 125' Wheelchair Level of Assist: 5 Wheel 50 ft with 2 turns (QC): 5 Type of Wheelchair: Manual Exercises Seated Therapy Exercises: Ankle pumps, Long arc quads, Hip flexion, Kicking activity Seated Reps: 20 Standing: Sit to Stand (5) Treatments PT adjsuted foot pedals on [facility]. Pt transfers from Supine to EOB at TOE FORMER-Min A then EOB to Standing at Mod A. Pt transfers to [facility] at Max A w/o slide board. Pt wanted to attempt w/o slide board. Pt propels [facility] to Therapy Gym and rests. Pt attempts 5 sit to stands at //bars and is unable to stand. Pt then completed Seated Ex in [facility] before PT stretching B hamstrings. Pt propels [facility] back to room and rests in [facility] to order lunch before afternoon tx. Pt sitting in [facility] at end of tx with all needs met. Assessment Current Status: Fair Progress Pt is making improvement with activity tolerance ans strength as well as transfers but will still benefit from continued EX, transfers and mobility during tx. Pt continued to make inappropriate comments to staff during tx. PT Short Term Goals Short Term Goals Time Frame: Apr 19, 2017 Wheelchair (FIM): 5 Wheelchair distance (FIM): 3=150 ft Wheelchair Distance: 50'x2 Wheelchair Level of Assist: 5 PT Mcc Goals Mcc Goals PT Mcc Goals Time Frame: May 10, 2017 Transfers (B,C,W/C) (FIM): 5 Sit to Lying (QC): 5 Lying-Sitting on Side/Bed(QC): 5 Sit to Stand (QC): 9 Rollin Roll Left to Right (QC): 5 Chair/Cfx-vn-Duosk Xfer(QC): 5 Car Transfer (QC): 9 Does the Patient Walk: No and Walking Goal NOT indicated Does the Pt use WC or Scooter?: Yes Wheelchair (FIM): 5 Wheelchair distance (FIM): 3=150 ft Distance: 300' Wheelchair Level of Assist: 5 Wheel 50 feet with 2 turns (QC: 5 1 Step (curb) (QC): 9 4 Steps (QC): 9 12 Steps (QC): 9 Picking up an Object (QC): 4 PT Plan Problem List Problem List: Activity Tolerance, Functional Strength, Safety, Balance, Gait, Transfer, Bed Mobility, ROM Treatment/Plan Treatment Plan: Continue Plan of Care Treatment Plan: Bed Mobility, Education, Functional Activity Carolyn, Functional Strength, Group Therapy, Safety, Therapeutic Exercise, Transfers Treatment Duration: May 10, 2017 Visits Per Week: 11 Minutes/Day (M-F): 60-90 Minutes/Day (Sat/Adame): PRN Safety Risks/Education Patient Education: Transfer Techniques, Correct Positioning, Safety Issues Teaching Recipient: Patient Teaching Methods: Discussion Response to Teaching: Verbalize Understanding Time/GCodes Time In: 1000 Time Out: 1100 Total Billed Treatment Time: 60 Total Billed Treatment visit, FA x2 (30m), EX (20m) & GT (10m)-sit to stands MEGHANA FERNÁNDEZ OUTSIDE MACHINIST HELPER Apr 14, 2017 12:00
--- NOTE | 2017-04-14 14:04 | Physical Therapy Daily Note ---
PT Daily Note-Current Subjective Patient completing lunch and agrees to PT. Pain Numeric Pain Scale: 5-Moderate Pain Location: Left Location Body Site: Thigh Pain Description: Ache Mental Status Patient Orientation: Normal For Age Attachments: Oxygen Transfers Functional [place] Measure 0=Not Assessed/NA 4=Minimal Assistance 1=Total Assistance 5=Supervision or Setup 2=Maximal Assistance 6=Modified [place] 3=Moderate Assistance 7=Complete IndependenceIRFPAI Quality Coding Scale 6 Independent with activity with or without an assistive device 5 Patient requires set up or clean up by helper. Patient completes activity by themselves 4 Supervision or touching assist (CGA). [place] provide cues , steadying assist 3 The helper provides less than half the effort to complete the activity 2 The helper provides more than half the effort to complete the activity 1 Dependent. The helper does all the effort to complete an activity 7 Patient refused to complete or attempt activity 9 The patient did not perform the activity before the current illness or injury 88 Not attempted due to Medical conditions or safety concerns Transfers (B, C, W/C) (FIM): 2 Scootin Rollin Roll Left to Right (QC): 5 Supine to/from Sit: 4 Sit to/from Stand: 2 Sit to Lying (QC): 4 Sit to Stand (QC): 2 Chair/Tli-av-Iesnx Xfer(QC): 3 Bed to/from Chair: 3 sit to stand x 4 sets with max assist x 2 sets and minimal assist x 2 sets Wheelchair Training Does the Pt Use a Wheelchair?: Yes Wheelchair (FIM): 5 Wheelchair Distance: 3=150 ft Distance: 150' Wheelchair Level of Assist: 5 Wheel 50 ft with 2 turns (QC): 5 Wheel 150 ft (QC): 5 Type of Wheelchair: Manual Assessment Patient tolerated treatment well and returned to bed with needs met. Patient improving with treatment plan and gaining strength with improving with sit to stand transfers. PT Short Term Goals Short Term Goals Time Frame: Apr 19, 2017 Wheelchair (FIM): 5 Wheelchair distance (FIM): 3=150 ft Wheelchair Distance: 50'x2 Wheelchair Level of Assist: 5 PT Fpc Goals Fpc Goals PT Parts Room Clerk Goals Time Frame: May 10, 2017 Transfers (B,C,W/C) (FIM): 5 Sit to Lying (QC): 5 Lying-Sitting on Side/Bed(QC): 5 Sit to Stand (QC): 9 Rollin Roll Left to Right (QC): 5 Chair/Krs-pk-[place] Xfer(QC): 5 Car Transfer (QC): 9 Does the Patient Walk: No and Walking Goal NOT indicated Does the Pt use WC or Scooter?: Yes Wheelchair (FIM): 5 Wheelchair distance (FIM): 3=150 ft Distance: 300' Wheelchair Level of Assist: 5 Wheel 50 feet with 2 turns (QC: 5 1 Step (curb) (QC): 9 4 Steps (QC): 9 12 Steps (QC): 9 Picking up an Object (QC): 4 PT Plan Treatment/Plan Treatment Plan: Continue Plan of Care Treatment Plan: Bed Mobility, Education, Functional Activity Carolyn, Functional Strength, Group Therapy, Safety, Therapeutic Exercise, Transfers Treatment Duration: May 10, 2017 Visits Per Week: 11 Minutes/Day (M-F): 60-90 Minutes/Day (Sat/Adame): PRN Time/GCodes Time In: 1300 Time Out: 1330 Total Billed Treatment Time: 30 Total Billed Treatment 1 visit FA x 2 30 min DAMIR COLON PT Apr 14, 2017 14:04
[2017-04-14] MEDS: BACLOFEN 10 MG (LIORESAL) TAB PO PRN (15:10)
--- NOTE | 2017-04-14 15:47 | Physical Therapy Daily Note ---
PT Daily Note-Current Subjective Patient requested commode use. Pain Numeric Pain Scale: 5-Moderate Pain Location: Right Location Body Site: Knee Pain Description: Ache, Pressure Mental Status Patient Orientation: Normal For Age Transfers Functional [place] Measure 0=Not Assessed/NA 4=Minimal Assistance 1=Total Assistance 5=Supervision or Setup 2=Maximal Assistance 6=Modified [place] 3=Moderate Assistance 7=Complete IndependenceIRFPAI Quality Coding Scale 6 Independent with activity with or without an assistive device 5 Patient requires set up or clean up by helper. Patient completes activity by themselves 4 Supervision or touching assist (CGA). [place] provide cues , steadying assist 3 The helper provides less than half the effort to complete the activity 2 The helper provides more than half the effort to complete the activity 1 Dependent. The helper does all the effort to complete an activity 7 Patient refused to complete or attempt activity 9 The patient did not perform the activity before the current illness or injury 88 Not attempted due to Medical conditions or safety concerns Transfers (B, C, W/C) (FIM): 2 Scootin Rollin Roll Left to Right (QC): 4 Supine to/from Sit: 4 Sit to/from Stand: 2 Sit to Lying (QC): 4 Sit to Stand (QC): 2 Chair/Rhy-jc-Eyxll Xfer(QC): 2 Bed to/from Chair: 2 bed mobility exercises with rolling and supine<>sit prior to transfer training bed <>commode to right secondary to left LE flaccid; patient requires max assist with SPT with patient assist and SBA to CGA by RN's to assist with cleansing after BM. Assessment Patient tolerated treatment well and returned to bed with needs met. PT to increase activity as tolerated by patient. PT Short Term Goals Short Term Goals Time Frame: Apr 19, 2017 Wheelchair (FIM): 5 Wheelchair distance (FIM): 3=150 ft Wheelchair Distance: 125' Wheelchair Level of Assist: 5 PT Superintendent Service Goals Superintendent Service Goals PT Detention Goals Time Frame: May 10, 2017 Transfers (B,C,W/C) (FIM): 5 Sit to Lying (QC): 5 Lying-Sitting on Side/Bed(QC): 5 Sit to Stand (QC): 9 Rollin Roll Left to Right (QC): 5 Chair/Rpt-fa-Xgbsg Xfer(QC): 5 Car Transfer (QC): 9 Does the Patient Walk: No and Walking Goal NOT indicated Does the Pt use WC or Scooter?: Yes Wheelchair (FIM): 5 Wheelchair distance (FIM): 3=150 ft Distance: 300' Wheelchair Level of Assist: 5 Wheel 50 feet with 2 turns (QC: 5 1 Step (curb) (QC): 9 4 Steps (QC): 9 12 Steps (QC): 9 Picking up an Object (QC): 4 PT Plan Treatment/Plan Treatment Plan: Continue Plan of Care Treatment Plan: Bed Mobility, Education, Functional Activity Carolyn, Functional Strength, Group Therapy, Safety, Therapeutic Exercise, Transfers Treatment Duration: May 10, 2017 Visits Per Week: 11 Minutes/Day (M-F): 60-90 Minutes/Day (Sat/Adame): PRN Time/GCodes Time In: 1510 Time Out: 1540 Total Billed Treatment Time: 30 Total Billed Treatment 1 visit FA x 2 30 min DAMIR COLON PT Apr 14, 2017 15:46
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
[2017-04-14 18:00] VITALS: BP 110/61
[2017-04-14] MEDS: MELATONIN 3 MG TABLET PO PRN (20:23)
[2017-04-14] MEDS: clonazePAM 1 MG (KlonoPIN) TAB PO SCH (20:23)
[2017-04-14] MEDS: ATORVASTATIN 40 MG (LIPITOR) TABLET PO SCH (20:23)
[2017-04-15 05:21] VITALS: BP 117/64
[2017-04-15] MEDS: predniSONE 20 MG TAB PO SCH (06:04)
[2017-04-15] MEDS: metFORMIN 500 MG (GLUCOPHAGE) TAB PO SCH ×2 (06:04→17:26)
[2017-04-15] MEDS: LEVOTHYROXINE 150 MCG (LEVOTHROID) TAB PO SCH (06:04)
[2017-04-15] MEDS: KCL 10 MEQ TAB (MICRO K) PO SCH (06:04)
[2017-04-15] MEDS: oxyCODONE/APAP 10/325MG (PERCOCET 10) TABLET PO PRN ×4 (06:06→23:48)
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
[2017-04-15] MEDS: FAMOTIDINE 20 MG (PEPCID) TABLET PO SCH (08:03)
[2017-04-15] MEDS: ASPIRIN E.C. 81 MG (ECOTRIN) TAB PO SCH (08:03)
[2017-04-15] MEDS: PREGABALIN 75 MG (LYRICA) CAP PO SCH ×2 (08:04→20:48)
[2017-04-15] MEDS: clonazePAM 0.5 MG (KlonoPIN) TAB PO SCH ×4 (08:04→14:11)
[2017-04-15] MEDS: meTOprolol TARTRATE 25 MG (LOPRESSOR) TABLET PO SCH ×2 (08:04→20:48)
[2017-04-15] MEDS: FUROSEMIDE 20 MG (LASIX) TAB PO SCH (08:05)
--- NOTE | 2017-04-15 08:09 | Progress Note (SOAP) ---
Subjective Subjective/Events-last exam patient having back pain and constipation Patient using Percocet . To give Colace. To add tramadol for mild pain. Lumbar radiculopathy. Sciatica. DIABETES Objective Exam Vital Signs Date Time Temp Pulse Resp B/P (MAP) Pulse Ox O2 Delivery O2 Flow Rate FiO2 04/15/17 05:21 96.8 69 18 117/64 95 3.00 04/14/17 20:20 3.00 04/14/17 19:06 94 3.00 04/14/17 18:00 97.3 78 16 110/61 94 3.00 04/14/17 17:14 97.3 I & O 04/15/17 07:00 Intake Total 2150 ml Output Total 2175 ml Balance -25 ml Capillary Refill : General Appearance: No Apparent Distress, WD/WN HEENT: Normal ENT Inspection Neck: Full Range of Motion, Normal Inspection Respiratory: Chest Non Tender, Lungs Clear, Normal Breath Sounds, No Accessory Muscle Use Cardiovascular: Regular Rate, Rhythm, No Murmur Assessment/Plan Assessment/Plan Assess & Plan/Chief Complaint PATIENT FEELS HE IS DOING BETTER> Clinical Quality Measures DVT/VTE Risk/Contraindication: Risk Factor Score Per Nursin RFS Level Per Nursing on Admit: 4+=Very High MILAD MULLER DO Apr 15, 2017 08:09
[2017-04-15] MEDS: RT-ADVAIR HFA 115/21 MCG PER PUFF IH SCH ×2 (09:47→19:22)
[2017-04-15] MEDS: DOCUSATE SODIUM 100 MG (COLACE) CAP PO SCH ×2 (10:46→20:47)
--- NOTE | 2017-04-15 11:00 | Physical Therapy Daily Note ---
PT Daily Note-Current Subjective Patient in bed pre tx, agrees to PT, has no complaints of pain. Appearance Patient BTB post tx with nurse call, phone, tray, all needs met, nurse in the room. Mental Status Patient Orientation: Normal For Age Attachments: Oxygen Transfers Functional [place] Measure 0=Not Assessed/NA 4=Minimal Assistance 1=Total Assistance 5=Supervision or Setup 2=Maximal Assistance 6=Modified [place] 3=Moderate Assistance 7=Complete IndependenceIRFPAI Quality Coding Scale 6 Independent with activity with or without an assistive device 5 Patient requires set up or clean up by helper. Patient completes activity by themselves 4 Supervision or touching assist (CGA). [place] provide cues , steadying assist 3 The helper provides less than half the effort to complete the activity 2 The helper provides more than half the effort to complete the activity 1 Dependent. The helper does all the effort to complete an activity 7 Patient refused to complete or attempt activity 9 The patient did not perform the activity before the current illness or injury 88 Not attempted due to Medical conditions or safety concerns Transfers (B, C, W/C) (FIM): 2 Scootin Rollin Supine to/from Sit: 2 Sit to/from Stand: 2 Bed to/from Chair: 2 Patient was able to perform supine to sit with min assist at the beginning of tx , but he needed max assist at the end. Wheelchair Training Wheelchair (FIM): 2 Distance: 120'x2 Wheelchair Level of Assist: 5 Type of Wheelchair: Manual Exercises sit to fashion coordinator parallel bars x3 with max assist and he was able to stand for about 1 min each time. Patient performed AP on right side x20, LAQ on right side for 5 min, seated hip flexion right side x20, left side seated knee flexion x20 Treatments bed mobility and transfers, wheelchair mobility, standing, functional strengthening Assessment Current Status: Poor Progress no change in mobility PT Short Term Goals Short Term Goals Time Frame: Apr 19, 2017 Wheelchair (FIM): 5 Wheelchair distance (FIM): 3=150 ft Wheelchair Distance: 125' Wheelchair Level of Assist: 5 PT Rand Maker Goals Rand Maker Goals PT Pen[facility] Goals Time Frame: May 10, 2017 Transfers (B,C,W/C) (FIM): 5 Sit to Lying (QC): 5 Lying-Sitting on Side/Bed(QC): 5 Sit to Stand (QC): 9 Rollin Roll Left to Right (QC): 5 Chair/Itx-ud-Btpol Xfer(QC): 5 Car Transfer (QC): 9 Does the Patient Walk: No and Walking Goal NOT indicated Does the Pt use WC or Scooter?: Yes Wheelchair (FIM): 5 Wheelchair distance (FIM): 3=150 ft Distance: 300' Wheelchair Level of Assist: 5 Wheel 50 feet with 2 turns (QC: 5 1 Step (curb) (QC): 9 4 Steps (QC): 9 12 Steps (QC): 9 Picking up an Object (QC): 4 PT Plan Problem List Problem List: Activity Tolerance, Functional Strength, Safety, Balance, Gait, Transfer, Bed Mobility, ROM Treatment/Plan Treatment Plan: Continue Plan of Care Treatment Plan: Bed Mobility, Education, Functional Activity Carolyn, Functional Strength, Group Therapy, Safety, Therapeutic Exercise, Transfers Treatment Duration: May 10, 2017 Visits Per Week: 11 Minutes/Day (M-F): 60-90 Minutes/Day (Sat/Adame): PRN Safety Risks/Education Patient Education: Transfer Techniques, Correct Positioning, W/C Management, Safety Issues Teaching Recipient: Patient Teaching Methods: Demonstration, Discussion Response to Teaching: Reinforcement Needed Time/GCodes Time In: 1000 Time Out: 1100 Total Billed Treatment Time: 60 Total Billed Treatment [address] [facility] 15' EX 15' FA 30' ADA CARRILLO PT Apr 15, 2017 11:00
--- NOTE | 2017-04-15 12:06 | Occupational Ther Daily Note ---
OT Current Status-Daily Note Subjective Pt seen in room, up in bed, agreeable to OT but does not want to shower today. Said he didn't sleep well last night. No pain mentioned. Appearance Alert, cooperative, talkative Mental Status/Objective Functional [place] Measure 0=Not Assessed/NA 4=Minimal Assistance 1=Total Assistance 5=Supervision or Setup 2=Maximal Assistance 6=Modified [place] 3=Moderate Assistance 7=Complete [place] ADL-Treatment All ADLS took longer than usual. Pt cont with O2 nc throughout tx. Able to transition from supine to sit EOB with SBA and sat EOB without assistance to groom. Pt requires frequent recovery periods,especially after dressing LEs. Functional [place] Measure 0=Not Assessed/NA 4=Minimal Assistance 1=Total Assistance 5=Supervision or Setup 2=Maximal Assistance 6=Modified [place] 3=Moderate Assistance 7=Complete IndependenceIRFPAI Quality Coding Scale 6 Independent with activity with or without an assistive device 5 Patient requires set up or clean up by helper. Patient completes activity by themselves 4 Supervision or touching assist (CGA). [place] provide cues , steadying assist 3 The helper provides less than half the effort to complete the activity 2 The helper provides more than half the effort to complete the activity 1 Dependent. The helper does all the effort to complete an activity 7 Patient refused to complete or attempt activity 9 The patient did not perform the activity before the current illness or injury 88 Not attempted due to Medical conditions or safety concerns Grooming (FIM): 5 (Sat EOB to brush teeth and hair. Washed face and hands during bath) Bathing (FIM): 4 (Sponge bath. Able to wash and dry all parts except bottom ( he did try to wash it). Long sitting in bed, head of bed up and down as needed throughout bath.) Upper Body (FIM): 5 (setup to don shirt) Lower Body Dressing (FIM): 4 (Able to get slipper socks off and on. Able to get underwear down and off. Able to get pants on and pull up to hips, rolled side to side to help get pants up over hips in back. Long sitting in bed) Toileting (FIM): 5 (Manages urinal, clothing, but cannot empty urinal) Other Treatment Pt was provided with red theraband (medium resistance) and was able to do 10 reps two different exercises for shoulders and elbows to help with transfers and pulling himself up in bed. Pt educ on technique for each exercise. Pt left up in bed, all needs met. Education OT Patient Education: Exercise program, Modified ADL techniques, Progress toward Goal/Update tx plan, Purpose of tx/functional activities Teaching Recipient: Patient Teaching Methods: Discussion Response to Teaching: Verbalize Understanding OT Short Term Goals Short Term Goals Time Frame: Apr 26, 2017 Lower Body Dressing(FIM): 4 Toilet/Commode Transfer(FIM): 3 Shower Transfer(FIM): 3 Additional Short Term Goals: 2-Verbalize Understanding, 3-ImproveStrength/Carolyn 1=Demonstrate adherence to instructed precautions during ADL tasks. 2=Patient will verbalize/demonstrate understanding of assistive devices/ modifications for ADL. 3=Patient will improve strength/tolerance for activity to enable patient to perform ADL's. OT Skilled Nursing Goals Barking Machine Feeder Goals Time Frame: May 10, 2017 Eating (FIM): 7 Eating (QC): 7 Groomin Oral Hygiene (QC): 6 Bathing(FIM): 5 Shower/Bathe Self (QC): 5 Upper Body Dressing(FIM): 6 Upper Body Dressing (QC): 6 Lower Body Dressing(FIM): 6 Lower Body Dressing (QC): 6 On/Off Footwear (QC): 6 Toileting(FIM): 6 Toileting Hygiene (QC): 6 Toilet/Commode Transfer(FIM): 6 Toilet/Commode Transfer (QC): 6 Shower Transfer(FIM): 6 Additional Goals: 2-Verbalize Understanding, 3-ImproveStrength/Carolyn 1=Demonstrate adherence to instructed precautions during ADL tasks. 2=Patient will verbalize/demonstrate understanding of assistive devices/ modifications for ADL. 3=Patient will improve strength/tolerance for activity to enable patient to perform ADL's. OT Education/Plan Problem List/Assessment Pt would benefit from skilled OT to increase his independence in basic self care to allow him to safely return to his home to live as independently as possible and to decrease caregiver burden. Discharge Recommendations Plan/Recommendations: Continue POC Treatment Plan/Plan of Care Patient would benefit from OT for education, treatment and training to promote independence in ADL's, mobility, safety and/or upper extremity function for ADL' s. Plan of Care: ADL Retraining, Functional Mobility, Group Exercise/Act as Ind ( education, exercise, mobility, functional activities, socialization), UE Neuromus Re-Ed/Coord Treatment Duration: May 10, 2017 Visits Per Week: 10-11 Minutes/Day (M-F): 75-90 Minutes/Day (Sat/Adame): PRN Agreement: Yes Rehab Potential: Fair Time/GCodes Start Time: 08:30 Stop Time: 10:00 Total Time Billed (hr/min): 90 Billed Treatment Time visit, 85 minutes ADL, 5 minutes exercise TIAGO KRUEGER OT Apr 15, 2017 12:05
--- NOTE | 2017-04-15 13:30 | Physical Therapy Daily Note ---
PT Daily Note-Current Subjective Patient in bed pre tx, agrees to PT, no complaints of pain. Appearance Patient in bed post tx with nurse call, phone, tray, all needs met. Mental Status Patient Orientation: Normal For Age Transfers Functional [place] Measure 0=Not Assessed/NA 4=Minimal Assistance 1=Total Assistance 5=Supervision or Setup 2=Maximal Assistance 6=Modified [place] 3=Moderate Assistance 7=Complete IndependenceIRFPAI Quality Coding Scale 6 Independent with activity with or without an assistive device 5 Patient requires set up or clean up by helper. Patient completes activity by themselves 4 Supervision or touching assist (CGA). [place] provide cues , steadying assist 3 The helper provides less than half the effort to complete the activity 2 The helper provides more than half the effort to complete the activity 1 Dependent. The helper does all the effort to complete an activity 7 Patient refused to complete or attempt activity 9 The patient did not perform the activity before the current illness or injury 88 Not attempted due to Medical conditions or safety concerns Exercises Supine Ex: Ankle pumps, Quad Set, Glut sets, Heel Slides, Short Arc Quads, Straight leg raise, Hip abd/add Supine Reps: 20 exercises performed on right leg, PROM to left leg in all planes Treatments ROM, functional strengthening Assessment Current Status: Poor Progress no change in mobility PT Short Term Goals Short Term Goals Time Frame: Apr 19, 2017 Wheelchair (FIM): 5 Wheelchair distance (FIM): 3=150 ft Wheelchair Distance: 120'x2 Wheelchair Level of Assist: 5 PT Halfway Goals Halfway Goals PT Halfway Goals Time Frame: May 10, 2017 Transfers (B,C,W/C) (FIM): 5 Sit to Lying (QC): 5 Lying-Sitting on Side/Bed(QC): 5 Sit to Stand (QC): 9 Rollin Roll Left to Right (QC): 5 Chair/Tzc-mv-Ydjsu Xfer(QC): 5 Car Transfer (QC): 9 Does the Patient Walk: No and Walking Goal NOT indicated Does the Pt use WC or Scooter?: Yes Wheelchair (FIM): 5 Wheelchair distance (FIM): 3=150 ft Distance: 300' Wheelchair Level of Assist: 5 Wheel 50 feet with 2 turns (QC: 5 1 Step (curb) (QC): 9 4 Steps (QC): 9 12 Steps (QC): 9 Picking up an Object (QC): 4 PT Plan Problem List Problem List: Activity Tolerance, Functional Strength, Safety, Balance, Gait, Transfer, Bed Mobility, ROM Treatment/Plan Treatment Plan: Continue Plan of Care Treatment Plan: Bed Mobility, Education, Functional Activity Carolyn, Functional Strength, Group Therapy, Safety, Therapeutic Exercise, Transfers Treatment Duration: May 10, 2017 Visits Per Week: 11 Minutes/Day (M-F): 60-90 Minutes/Day (Sat/Adame): PRN Safety Risks/Education Patient Education: Correct Positioning, Safety Issues Teaching Recipient: Patient Teaching Methods: Demonstration, Discussion Response to Teaching: Reinforcement Needed Time/GCodes Time In: 1300 Time Out: 1330 Total Billed Treatment Time: 30 Total Billed Treatment 1 visit EX 30' ADA CARRILLO PT Apr 15, 2017 13:30
[2017-04-15 18:00] VITALS: BP 124/61
[2017-04-15] MEDS: clonazePAM 1 MG (KlonoPIN) TAB PO SCH (20:47)
[2017-04-15] MEDS: ATORVASTATIN 40 MG (LIPITOR) TABLET PO SCH (20:48)
[2017-04-16 05:07] VITALS: BP 122/69
[2017-04-16] MEDS: KCL 10 MEQ TAB (MICRO K) PO SCH (06:22)
[2017-04-16] MEDS: predniSONE 20 MG TAB PO SCH (06:22)
[2017-04-16] MEDS: metFORMIN 500 MG (GLUCOPHAGE) TAB PO SCH ×2 (06:22→16:59)
[2017-04-16] MEDS: LEVOTHYROXINE 150 MCG (LEVOTHROID) TAB PO SCH (06:22)
[2017-04-16] MEDS: RT-ADVAIR HFA 115/21 MCG PER PUFF IH SCH ×2 (07:12→22:46)
[2017-04-16] MEDS: DOCUSATE SODIUM 100 MG (COLACE) CAP PO SCH ×2 (08:11→20:10)
[2017-04-16] MEDS: ASPIRIN E.C. 81 MG (ECOTRIN) TAB PO SCH (08:11)
[2017-04-16] MEDS: meTOprolol TARTRATE 25 MG (LOPRESSOR) TABLET PO SCH ×2 (08:11→20:10)
[2017-04-16] MEDS: FUROSEMIDE 20 MG (LASIX) TAB PO SCH (08:12)
[2017-04-16] MEDS: oxyCODONE/APAP 10/325MG (PERCOCET 10) TABLET PO PRN ×3 (08:12→21:01)
[2017-04-16] MEDS: FAMOTIDINE 20 MG (PEPCID) TABLET PO SCH (08:12)
[2017-04-16] MEDS: PREGABALIN 75 MG (LYRICA) CAP PO SCH ×2 (08:12→20:10)
[2017-04-16] MEDS: clonazePAM 0.5 MG (KlonoPIN) TAB PO SCH ×4 (08:15→13:16)
--- NOTE | 2017-04-16 10:35 | Occupational Ther Daily Note ---
OT Current Status-Daily Note Subjective Pt. does not report pain, but does state that he has been here since last Tuesday. When pt. is shown that he came in on Tuesday, states, "I must have lost some days." Appearance Pt. in bed. Alert and oriented. Agrees to spongebathe in bed. Mental Status/Objective Patient Orientation: Person, Place Functional [place] Measure 0=Not Assessed/NA 4=Minimal Assistance 1=Total Assistance 5=Supervision or Setup 2=Maximal Assistance 6=Modified [place] 3=Moderate Assistance 7=Complete [place] Attachments: Oxygen ADL-Treatment Functional [place] Measure 0=Not Assessed/NA 4=Minimal Assistance 1=Total Assistance 5=Supervision or Setup 2=Maximal Assistance 6=Modified [place] 3=Moderate Assistance 7=Complete IndependenceIRFPAI Quality Coding Scale 6 Independent with activity with or without an assistive device 5 Patient requires set up or clean up by helper. Patient completes activity by themselves 4 Supervision or touching assist (CGA). [place] provide cues , steadying assist 3 The helper provides less than half the effort to complete the activity 2 The helper provides more than half the effort to complete the activity 1 Dependent. The helper does all the effort to complete an activity 7 Patient refused to complete or attempt activity 9 The patient did not perform the activity before the current illness or injury 88 Not attempted due to Medical conditions or safety concerns Bathing (FIM): 4 (Pt. requires assistance to wash rear nasrin area at bed level.) Shower/Bathe Self (QC): 3 Upper Body (FIM): 3 (Due to time constraints and fatigue, pt. required mod assist to pull shirt down over back and front torso.) Upper Body Dressing (QC): 3 Lower Body Dressing (FIM): 3 (Pt. able to don socks and underwear/pants over feet. Requires assist to don over hips.) Lower Body Dressing (QC): 3 On/Off Footwear (QC): 3 Toileting (FIM): 1 (Pt. requires dependent assist to toilet self on BSC. Pt. had BM. Able to lean forward while OT cleansed rear nasrin area.) Toileting Hygiene (QC): 1 Transfers (B, C, W/C) (FIM): 1 (Please see below.) Toilet/Commode Transfer (FIM): 1 Toilet Transfer (QC): 1 Other Treatment Pt. in bed. Before bathing task can begin, pt. requests to use urinal in bed. Able to do this with increased time needed. Pt. then requests to use the BSC. Stood with max x2 to pivot to BSC. Pt. states that his right leg "wouldn't hold me." Pt. toileted, and after OT cleansed him, pt. requested to get back into bed by transferring forward and leaning on his stomach. Pt. adament that this is what he should do. Did this, but then unable to move himself. OT and tech assisted him into bed by putting his legs onto bed, and assisting him to roll to his side. Pt. seems to have low self awareness at times of his abilities. Pt. continued in bed with bathing and dressing task. All needs met in bed. Education OT Patient Education: Correct positioning, Modified ADL techniques, Progress toward Goal/Update tx plan, Purpose of tx/functional activities, Reviewed precautions, Rehab process, Transfer techniques Teaching Recipient: Patient Teaching Methods: Demonstration, Discussion Response to Teaching: Verbalize Understanding, Return Demonstration OT Short Term Goals Short Term Goals Time Frame: Apr 26, 2017 Lower Body Dressing(FIM): 4 Toilet/Commode Transfer(FIM): 3 Shower Transfer(FIM): 3 Additional Short Term Goals: 2-Verbalize Understanding, 3-ImproveStrength/Carolyn 1=Demonstrate adherence to instructed precautions during ADL tasks. 2=Patient will verbalize/demonstrate understanding of assistive devices/ modifications for ADL. 3=Patient will improve strength/tolerance for activity to enable patient to perform ADL's. OT Film Librarian Goals Film Librarian Goals Time Frame: May 10, 2017 Eating (FIM): 7 Eating (QC): 7 Groomin Oral Hygiene (QC): 6 Bathing(FIM): 5 Shower/Bathe Self (QC): 5 Upper Body Dressing(FIM): 6 Upper Body Dressing (QC): 6 Lower Body Dressing(FIM): 6 Lower Body Dressing (QC): 6 On/Off Footwear (QC): 6 Toileting(FIM): 6 Toileting Hygiene (QC): 6 Toilet/Commode Transfer(FIM): 6 Toilet/Commode Transfer (QC): 6 Shower Transfer(FIM): 6 Additional Goals: 2-Verbalize Understanding, 3-ImproveStrength/Carolyn 1=Demonstrate adherence to instructed precautions during ADL tasks. 2=Patient will verbalize/demonstrate understanding of assistive devices/ modifications for ADL. 3=Patient will improve strength/tolerance for activity to enable patient to perform ADL's. OT Education/Plan Problem List/Assessment Assessment: Decreased Activ Tolerance, Decreased Safety Aware, Decreased UE Strength, Dependent Transfers, Impaired Bed Mobility, Impaired Cognition, Impaired Funct Balance, Impaired I ADL's, Impaired Self-Care Skills Pt would benefit from skilled OT to increase his independence in basic self care to allow him to safely return to his home to live as independently as possible and to decrease caregiver burden. Discharge Recommendations Plan/Recommendations: Continue POC Treatment Plan/Plan of Care Treatment,Training & Education: Yes Patient would benefit from OT for education, treatment and training to promote independence in ADL's, mobility, safety and/or upper extremity function for ADL' s. Plan of Care: ADL Retraining, Functional Mobility, Group Exercise/Act as Ind ( education, exercise, mobility, functional activities, socialization), UE Neuromus Re-Ed/Coord Treatment Duration: May 10, 2017 Visits Per Week: 10-11 Minutes/Day (M-F): 75-90 Minutes/Day (Sat/Adame): PRN Agreement: Yes Rehab Potential: Fair Time/GCodes Start Time: 08:30 Stop Time: 10:00 Total Time Billed (hr/min): 90 Billed Treatment Time 1, ADL x 6 SYLVESTER CISNEROS OT Apr 16, 2017 10:35
--- NOTE | 2017-04-16 12:22 | Physical Therapy Daily Note ---
PT Daily Note-Current Subjective Pt agreeable to treatment. Mental Status Patient Orientation: Normal For Age Transfers Functional [place] Measure 0=Not Assessed/NA 4=Minimal Assistance 1=Total Assistance 5=Supervision or Setup 2=Maximal Assistance 6=Modified [place] 3=Moderate Assistance 7=Complete IndependenceIRFPAI Quality Coding Scale 6 Independent with activity with or without an assistive device 5 Patient requires set up or clean up by helper. Patient completes activity by themselves 4 Supervision or touching assist (CGA). [place] provide cues , steadying assist 3 The helper provides less than half the effort to complete the activity 2 The helper provides more than half the effort to complete the activity 1 Dependent. The helper does all the effort to complete an activity 7 Patient refused to complete or attempt activity 9 The patient did not perform the activity before the current illness or injury 88 Not attempted due to Medical conditions or safety concerns Transfers (B, C, W/C) (FIM): 1 Scootin Rollin Supine to/from Sit: 4 Sit to/from Stand: 1 Bed to/from Chair: 2 Able to do partial stand pivot from bed to w/c and back with MAX Assist toward strong side with w/c positioned directly next to and parallel to the bed. Wheelchair Training Distance: 300 Wheelchair Level of Assist: 6 Type of Wheelchair: Manual self propelled w/c through multiple obstacles and practiced positioning of chair next to bed for transfers. Pt needs assistance for leg rests. Exercises Supine Ex: Ankle pumps, Quad Set, Rolling, Glut sets, Lower trunk rotation, Heel Slides, Knee to chest, Short Arc Quads, Scooting, Straight leg raise, Hip abd/add Supine Reps: 20 Standing: Sit to Stand Standing Reps: 6 Attempted sit to stand x 3 reps in parallel bars. Pt was not able to achieve standing with assist of one therapist. Utilized Michael lift and standing vest to bring patient to standing x 4 trials with 2-5 minutes each trial with work on wt shift and right partial knee bends. Transferring back to bed after treatment patient was able to obtain partial stand with Max Assist. Assessment Current Status: Fair Progress Pt responded well to use of assistive device and lift vest to assume a standing position. Required active assist with all LE exercises. He worked hard during therapy sessions and is motivated to obtain improved functional skills for d/c back to assisted living. Pt will benefit from continued therapy. PT Short Term Goals Short Term Goals Time Frame: Apr 19, 2017 Wheelchair (FIM): 5 Wheelchair distance (FIM): 3=150 ft Wheelchair Distance: 120'x2 Wheelchair Level of Assist: 5 PT Ladder Operator Goals [facility] Goals PT [facility] Goals Time Frame: May 10, 2017 Transfers (B,C,W/C) (FIM): 5 Sit to Lying (QC): 5 Lying-Sitting on Side/Bed(QC): 5 Sit to Stand (QC): 9 Rollin Roll Left to Right (QC): 5 Chair/Gdi-yb-Ymxlq Xfer(QC): 5 Car Transfer (QC): 9 Does the Patient Walk: No and Walking Goal NOT indicated Does the Pt use WC or Scooter?: Yes Wheelchair (FIM): 5 Wheelchair distance (FIM): 3=150 ft Distance: 300' Wheelchair Level of Assist: 5 Wheel 50 feet with 2 turns (QC: 5 1 Step (curb) (QC): 9 4 Steps (QC): 9 12 Steps (QC): 9 Picking up an Object (QC): 4 PT Plan Problem List Problem List: Activity Tolerance, Functional Strength, Transfer, Bed Mobility Treatment/Plan Treatment Plan: Continue Plan of Care Treatment Plan: Bed Mobility, Education, Functional Activity Carolyn, Functional Strength, Group Therapy, Safety, Therapeutic Exercise, Transfers Treatment Duration: May 10, 2017 Visits Per Week: 11 Minutes/Day (M-F): 60-90 Minutes/Day (Sat/Adame): PRN Time/GCodes Time In: 1055 Time Out: 1225 Total Billed Treatment Time: 90 Total Billed Treatment visit, exercise 30 minutes, functional activities 60 minutes ANTONIO SHARP PT Apr 16, 2017 12:22
[2017-04-16 18:00] VITALS: BP 118/62
[2017-04-16] MEDS: clonazePAM 1 MG (KlonoPIN) TAB PO SCH (20:10)
[2017-04-16] MEDS: ATORVASTATIN 40 MG (LIPITOR) TABLET PO SCH (20:10)
[2017-04-17] MEDS: oxyCODONE/APAP 10/325MG (PERCOCET 10) TABLET PO PRN ×4 (03:39→22:47)
[2017-04-17 05:32] VITALS: BP 136/89
[2017-04-17] MEDS: LEVOTHYROXINE 150 MCG (LEVOTHROID) TAB PO SCH (06:38)
[2017-04-17] MEDS: metFORMIN 500 MG (GLUCOPHAGE) TAB PO SCH ×2 (06:38→17:01)
[2017-04-17] MEDS: predniSONE 20 MG TAB PO SCH (06:38)
[2017-04-17] MEDS: KCL 10 MEQ TAB (MICRO K) PO SCH (06:38)
[2017-04-17] MEDS: RT-ADVAIR HFA 115/21 MCG PER PUFF IH SCH ×2 (08:17→19:24)
[2017-04-17] MEDS: PREGABALIN 75 MG (LYRICA) CAP PO SCH ×2 (08:32→20:10)
[2017-04-17] MEDS: DOCUSATE SODIUM 100 MG (COLACE) CAP PO SCH ×2 (08:33→20:09)
[2017-04-17] MEDS: meTOprolol TARTRATE 25 MG (LOPRESSOR) TABLET PO SCH ×2 (08:33→20:10)
[2017-04-17] MEDS: FUROSEMIDE 20 MG (LASIX) TAB PO SCH (08:33)
[2017-04-17] MEDS: FAMOTIDINE 20 MG (PEPCID) TABLET PO SCH (08:33)
[2017-04-17] MEDS: clonazePAM 0.5 MG (KlonoPIN) TAB PO SCH ×4 (08:33→13:31)
[2017-04-17] MEDS: ASPIRIN E.C. 81 MG (ECOTRIN) TAB PO SCH (08:34)
[2017-04-17 17:39] VITALS: BP 150/77
[2017-04-17] MEDS: ATORVASTATIN 40 MG (LIPITOR) TABLET PO SCH (20:09)
[2017-04-17] MEDS: clonazePAM 1 MG (KlonoPIN) TAB PO SCH (20:10)
[2017-04-18] MEDS: metFORMIN 500 MG (GLUCOPHAGE) TAB PO SCH ×2 (06:20→16:35)
[2017-04-18] MEDS: KCL 10 MEQ TAB (MICRO K) PO SCH (06:20)
[2017-04-18] MEDS: predniSONE 20 MG TAB PO SCH (06:20)
[2017-04-18] MEDS: LEVOTHYROXINE 150 MCG (LEVOTHROID) TAB PO SCH (06:20)
[2017-04-18] MEDS: oxyCODONE/APAP 10/325MG (PERCOCET 10) TABLET PO PRN ×4 (06:23→23:02)
[2017-04-18 06:28] VITALS: BP 124/59
[2017-04-18] MEDS: RT-ADVAIR HFA 115/21 MCG PER PUFF IH SCH ×2 (07:22→19:29)
[2017-04-18 08:02] VITALS: BP 116/70
[2017-04-18] MEDS: FUROSEMIDE 20 MG (LASIX) TAB PO SCH (08:04)
[2017-04-18] MEDS: meTOprolol TARTRATE 25 MG (LOPRESSOR) TABLET PO SCH ×2 (08:04→21:23)
[2017-04-18] MEDS: FAMOTIDINE 20 MG (PEPCID) TABLET PO SCH (08:04)
[2017-04-18] MEDS: PREGABALIN 75 MG (LYRICA) CAP PO SCH ×2 (08:04→21:23)
[2017-04-18] MEDS: ASPIRIN E.C. 81 MG (ECOTRIN) TAB PO SCH (08:04)
[2017-04-18] MEDS: DOCUSATE SODIUM 100 MG (COLACE) CAP PO SCH ×2 (08:04→21:23)
[2017-04-18] MEDS: clonazePAM 0.5 MG (KlonoPIN) TAB PO SCH ×4 (08:05→13:04)
--- NOTE | 2017-04-18 08:36 | Progress Note (SOAP) ---
Subjective Time Seen by Provider: 08:00 Subjective/Events-last exam lumbar radiculopathy. Patient has sore throat today. Patient complaining of leg cramps Objective Exam Vital Signs Date Time Temp Pulse Resp B/P (MAP) Pulse Ox O2 Delivery O2 Flow Rate FiO2 04/18/17 08:02 98.3 64 18 116/70 95 2.50 04/18/17 07:22 93 2.50 04/18/17 06:28 96.9 69 20 124/59 97 3.00 04/17/17 20:00 3.00 04/17/17 19:24 92 2.50 04/17/17 17:39 97.3 65 18 150/77 96 3.00 04/17/17 09:00 3.00 I & O 04/18/17 07:00 Intake Total 1700 ml Output Total 1710 ml Balance -10 ml Capillary Refill : General Appearance: No Apparent Distress, WD/WN HEENT: Other (no thrush) Neck: Normal Inspection Respiratory: No Accessory Muscle Use, No Respiratory Distress Cardiovascular: Regular Rate, Rhythm Assessment/Plan Assessment/Plan Assess & Plan/Chief Complaint 04/18/17. Patient having a sore throat today. Patient having muscle cramps in legs. Patient put on Neurontin. Rapid strep screen ordered Clinical Quality Measures DVT/VTE Risk/Contraindication: Risk Factor Score Per Nursin RFS Level Per Nursing on Admit: 4+=Very High MILAD MULLER DO Apr 18, 2017 08:36
[2017-04-18] MEDS: CHLORASEPTIC LOZENGE MM PRN (09:06)
[2017-04-18] MEDS: CALCIUM CARBONATE 500 MG (TUMS) TAB.CHEW PO PRN (10:33)
--- NOTE | 2017-04-18 11:03 | Physical Therapy Daily Note ---
PT Daily Note-Current Subjective Patient in wheelchair in therapy gym, just got through with OT, ready for PT. No complaints of pain. Appearance Patient BTB post tx with nurse call, phone, tray, all needs met. Patient has urinal, he needs to urinate. Mental Status Patient Orientation: Normal For Age Attachments: Oxygen Transfers Functional [place] Measure 0=Not Assessed/NA 4=Minimal Assistance 1=Total Assistance 5=Supervision or Setup 2=Maximal Assistance 6=Modified [place] 3=Moderate Assistance 7=Complete IndependenceIRFPAI Quality Coding Scale 6 Independent with activity with or without an assistive device 5 Patient requires set up or clean up by helper. Patient completes activity by themselves 4 Supervision or touching assist (CGA). [place] provide cues , steadying assist 3 The helper provides less than half the effort to complete the activity 2 The helper provides more than half the effort to complete the activity 1 Dependent. The helper does all the effort to complete an activity 7 Patient refused to complete or attempt activity 9 The patient did not perform the activity before the current illness or injury 88 Not attempted due to Medical conditions or safety concerns Transfers (B, C, W/C) (FIM): 1 Scootin Rollin Supine to/from Sit: 4 Sit to/from Stand: 1 Bed to/from Chair: 1 Patient needed assist of 2 to transfer back to bed after tx. Wheelchair Training Wheelchair (FIM): 5 Distance: 150' Wheelchair Level of Assist: 5 Type of Wheelchair: Manual Exercises Sit to bag filler machine operator parallel bars x3 and was able to stand for about 1 min each time. Manually resisted leg press on the right leg in wheelchair 3 sets of 10. LAQ right side for 1 min, patient had to stop early because he had to get back to his room to use the urinal. Treatments bed mobility and transfers, functional strengthening, standing in parallel bars Assessment Current Status: Poor Progress no change in mobility, patient gets SOB easily and needs frequent rest breaks PT Short Term Goals Short Term Goals Time Frame: Apr 19, 2017 Wheelchair (FIM): 5 Wheelchair distance (FIM): 3=150 ft Wheelchair Distance: 300 Wheelchair Level of Assist: 5 PT Starter Cup Powder Mixer Goals Starter Cup Powder Mixer Goals PT Starter Cup Powder Mixer Goals Time Frame: May 10, 2017 Transfers (B,C,W/C) (FIM): 5 Sit to Lying (QC): 5 Lying-Sitting on Side/Bed(QC): 5 Sit to Stand (QC): 9 Rollin Roll Left to Right (QC): 5 Chair/Lyx-op-Cbfsq Xfer(QC): 5 Car Transfer (QC): 9 Does the Patient Walk: No and Walking Goal NOT indicated Does the Pt use WC or Scooter?: Yes Wheelchair (FIM): 5 Wheelchair distance (FIM): 3=150 ft Distance: 300' Wheelchair Level of Assist: 5 Wheel 50 feet with 2 turns (QC: 5 1 Step (curb) (QC): 9 4 Steps (QC): 9 12 Steps (QC): 9 Picking up an Object (QC): 4 PT Plan Problem List Problem List: Activity Tolerance, Functional Strength, Safety, Balance, Gait, Transfer, Bed Mobility, ROM Treatment/Plan Treatment Plan: Continue Plan of Care Treatment Plan: Bed Mobility, Education, Functional Activity Carolyn, Functional Strength, Group Therapy, Safety, Therapeutic Exercise, Transfers Treatment Duration: May 10, 2017 Visits Per Week: 11 Minutes/Day (M-F): 60-90 Minutes/Day (Sat/Adame): PRN Safety Risks/Education Patient Education: Transfer Techniques, Correct Positioning, W/C Management, Safety Issues Teaching Recipient: Patient Teaching Methods: Demonstration, Discussion Response to Teaching: Reinforcement Needed Time/GCodes Time In: 1000 Time Out: 1100 Total Billed Treatment Time: 60 Total Billed Treatment 1 visit EX 15' [facility] 10' FA 35' ADA CARRILLO PT Apr 18, 2017 11:02
--- NOTE | 2017-04-18 11:13 | Occupational Ther Daily Note ---
OT Current Status-Daily Note Subjective Pt seen in room, up in bed, agreeable to OT. Reported that he had a sore throat and was going to get it swabbed. No pain mentioned. Did not think that he had adequate LE strength today to not only transfer on to shower chair but transfer off it back to bed or to w/c. He would need to stand to pull pants up from w/c. Appearance Alert, cooperative Mental Status/Objective Functional [place] Measure 0=Not Assessed/NA 4=Minimal Assistance 1=Total Assistance 5=Supervision or Setup 2=Maximal Assistance 6=Modified [place] 3=Moderate Assistance 7=Complete [place] ADL-Treatment Since pt did not want to do shower today, progressed ADLs by completing UE bathing and dressing seated at bedside. He washed lower body (except bottom) in long sitting in bed and dressed lower body same position, needing help to roll to the right side and in pulling pants up in back. Able to doff/don slipper socks with setup. transitioned to EOB without help but with HOB up. Bathed upped body with setup (except back) and dressed upper body with setup. Washed face and hands and brushed teeth setup, EOB. Functional [place] Measure 0=Not Assessed/NA 4=Minimal Assistance 1=Total Assistance 5=Supervision or Setup 2=Maximal Assistance 6=Modified [place] 3=Moderate Assistance 7=Complete IndependenceIRFPAI Quality Coding Scale 6 Independent with activity with or without an assistive device 5 Patient requires set up or clean up by helper. Patient completes activity by themselves 4 Supervision or touching assist (CGA). [place] provide cues , steadying assist 3 The helper provides less than half the effort to complete the activity 2 The helper provides more than half the effort to complete the activity 1 Dependent. The helper does all the effort to complete an activity 7 Patient refused to complete or attempt activity 9 The patient did not perform the activity before the current illness or injury 88 Not attempted due to Medical conditions or safety concerns Grooming (FIM): 5 Bathing (FIM): 4 Upper Body (FIM): 5 Lower Body Dressing (FIM): 4 Other Treatment Pt transferred to strong side to w/c with sliding board with mod assistance but two people present so w/c did not slide. Skilled cues for hand placement and for positioning sliding board. Able to weight shift himself once up in chair. Pt transported to gym and did 12 minutes bilat UE exercise with arm bike set at 20W resistance, with only one brief recovery period. Also did 15 reps bila UE ex with 1# exercise bar, working on shoulders and elbows. To strengthen arms to assist with transfers and standing for ADLs. Care transferred to PT. O2 at 2.5L/ min throughout except when off for dressing and bathing. Education OT Patient Education: Exercise program, Purpose of tx/functional activities, Transfer techniques Teaching Recipient: Patient Teaching Methods: Discussion Response to Teaching: Verbalize Understanding OT Short Term Goals Short Term Goals Time Frame: Apr 26, 2017 Lower Body Dressing(FIM): 4 Toilet/Commode Transfer(FIM): 3 Shower Transfer(FIM): 3 Additional Short Term Goals: 2-Verbalize Understanding, 3-ImproveStrength/Carolyn 1=Demonstrate adherence to instructed precautions during ADL tasks. 2=Patient will verbalize/demonstrate understanding of assistive devices/ modifications for ADL. 3=Patient will improve strength/tolerance for activity to enable patient to perform ADL's. OT Quality Assurance Director Goals [facility] Goals Time Frame: May 10, 2017 Eating (FIM): 7 Eating (QC): 7 Groomin Oral Hygiene (QC): 6 Bathing(FIM): 5 Shower/Bathe Self (QC): 5 Upper Body Dressing(FIM): 6 Upper Body Dressing (QC): 6 Lower Body Dressing(FIM): 6 Lower Body Dressing (QC): 6 On/Off Footwear (QC): 6 Toileting(FIM): 6 Toileting Hygiene (QC): 6 Toilet/Commode Transfer(FIM): 6 Toilet/Commode Transfer (QC): 6 Shower Transfer(FIM): 6 Additional Goals: 2-Verbalize Understanding, 3-ImproveStrength/Carolyn 1=Demonstrate adherence to instructed precautions during ADL tasks. 2=Patient will verbalize/demonstrate understanding of assistive devices/ modifications for ADL. 3=Patient will improve strength/tolerance for activity to enable patient to perform ADL's. OT Education/Plan Problem List/Assessment Pt would benefit from skilled OT to increase his independence in basic self care to allow him to safely return to his home to live as independently as possible and to decrease caregiver burden. Discharge Recommendations Plan/Recommendations: Continue POC Treatment Plan/Plan of Care Patient would benefit from OT for education, treatment and training to promote independence in ADL's, mobility, safety and/or upper extremity function for ADL' s. Plan of Care: ADL Retraining, Functional Mobility, Group Exercise/Act as Ind ( education, exercise, mobility, functional activities, socialization), UE Neuromus Re-Ed/Coord Treatment Duration: May 10, 2017 Visits Per Week: 10-11 Minutes/Day (M-F): 75-90 Minutes/Day (Sat/Adame): PRN Agreement: Yes Rehab Potential: Fair Time/GCodes Start Time: 08:30 Stop Time: 10:00 Total Time Billed (hr/min): 90 Billed Treatment Time visit, 65 minutes ADL, 25 minutes exercise TIAGO KRUEGER OT Apr 18, 2017 11:13
--- NOTE | 2017-04-18 14:04 | Physical Therapy Daily Note ---
PT Daily Note-Current Subjective Patient in bed pre tx, agrees to PT. No complaints of pain. Patient's power chair is here, will get him up in that and encourage him to stay in it for as long as he can. Appearance Patient in power chair post tx. He is mobile, mod I with wheelchair mobility. Mental Status Patient Orientation: Normal For Age Attachments: Oxygen Transfers Functional [place] Measure 0=Not Assessed/NA 4=Minimal Assistance 1=Total Assistance 5=Supervision or Setup 2=Maximal Assistance 6=Modified [place] 3=Moderate Assistance 7=Complete IndependenceIRFPAI Quality Coding Scale 6 Independent with activity with or without an assistive device 5 Patient requires set up or clean up by helper. Patient completes activity by themselves 4 Supervision or touching assist (CGA). [place] provide cues , steadying assist 3 The helper provides less than half the effort to complete the activity 2 The helper provides more than half the effort to complete the activity 1 Dependent. The helper does all the effort to complete an activity 7 Patient refused to complete or attempt activity 9 The patient did not perform the activity before the current illness or injury 88 Not attempted due to Medical conditions or safety concerns Transfers (B, C, W/C) (FIM): 2 Scootin Rollin Supine to/from Sit: 5 Sit to/from Stand: 2 Bed to/from Chair: 2 Max assist modified stand pivot to the right into the power chair. Wheelchair Training Does the Pt Use a Wheelchair?: Yes Wheelchair (FIM): 6 Distance: 200' Type of Wheelchair: Motorized O2 tank was affixed to the back of the chair so he can be more mobile. Treatments bed mobility and transfers, wheelchair mobility. Assessment Current Status: Fair Progress improved bed mobility PT Short Term Goals Short Term Goals Time Frame: Apr 19, 2017 Wheelchair (FIM): 5 Wheelchair distance (FIM): 3=150 ft Wheelchair Distance: 150' Wheelchair Level of Assist: 5 PT Early Intervention School Psychologist Goals Early Intervention School Psychologist Goals PT Early Intervention School Psychologist Goals Time Frame: May 10, 2017 Transfers (B,C,W/C) (FIM): 5 Sit to Lying (QC): 5 Lying-Sitting on Side/Bed(QC): 5 Sit to Stand (QC): 9 Rollin Roll Left to Right (QC): 5 Chair/Bje-st-Jqita Xfer(QC): 5 Car Transfer (QC): 9 Does the Patient Walk: No and Walking Goal NOT indicated Does the Pt use WC or Scooter?: Yes Wheelchair (FIM): 5 Wheelchair distance (FIM): 3=150 ft Distance: 300' Wheelchair Level of Assist: 5 Wheel 50 feet with 2 turns (QC: 5 1 Step (curb) (QC): 9 4 Steps (QC): 9 12 Steps (QC): 9 Picking up an Object (QC): 4 PT Plan Problem List Problem List: Activity Tolerance, Functional Strength, Safety, Balance, Transfer, Bed Mobility, ROM Treatment/Plan Treatment Plan: Continue Plan of Care Treatment Plan: Bed Mobility, Education, Functional Activity Carolyn, Functional Strength, Group Therapy, Safety, Therapeutic Exercise, Transfers Treatment Duration: May 10, 2017 Visits Per Week: 11 Minutes/Day (M-F): 60-90 Minutes/Day (Sat/Adame): PRN Safety Risks/Education Patient Education: Transfer Techniques, Correct Positioning, W/C Management, Safety Issues Teaching Recipient: Patient Teaching Methods: Demonstration, Discussion Response to Teaching: Reinforcement Needed Time/GCodes Time In: 1330 Time Out: 1400 Total Billed Treatment Time: 30 Total Billed Treatment 1 visit FA 15' [facility] 15' ADA CARRILLO PT Apr 18, 2017 14:04
[2017-04-18 18:05] VITALS: BP 120/72
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
[2017-04-18] MEDS ORDERED: GABAPENTIN 300 MG (NEURONTIN) CAP PO SCH (21:00)
[2017-04-18] MEDS: ATORVASTATIN 40 MG (LIPITOR) TABLET PO SCH (21:23)
[2017-04-18] MEDS: clonazePAM 1 MG (KlonoPIN) TAB PO SCH (21:23)
[2017-04-19] MEDS: oxyCODONE/APAP 10/325MG (PERCOCET 10) TABLET PO PRN ×4 (04:18→21:55)
[2017-04-19 05:02] VITALS: BP 117/59
[2017-04-19] MEDS: KCL 10 MEQ TAB (MICRO K) PO SCH (06:12)
[2017-04-19] MEDS: predniSONE 20 MG TAB PO SCH (06:12)
[2017-04-19] MEDS: LEVOTHYROXINE 150 MCG (LEVOTHROID) TAB PO SCH (06:12)
[2017-04-19] MEDS: metFORMIN 500 MG (GLUCOPHAGE) TAB PO SCH ×2 (06:12→17:31)
[2017-04-19] MEDS: RT-ADVAIR HFA 115/21 MCG PER PUFF IH SCH ×2 (06:42→18:38)
[2017-04-19] MEDS: FAMOTIDINE 20 MG (PEPCID) TABLET PO SCH (08:31)
[2017-04-19] MEDS: DOCUSATE SODIUM 100 MG (COLACE) CAP PO SCH ×2 (08:31→20:43)
[2017-04-19] MEDS: FUROSEMIDE 20 MG (LASIX) TAB PO SCH (08:32)
[2017-04-19] MEDS: meTOprolol TARTRATE 25 MG (LOPRESSOR) TABLET PO SCH ×2 (08:32→20:43)
[2017-04-19] MEDS: ASPIRIN E.C. 81 MG (ECOTRIN) TAB PO SCH (08:32)
[2017-04-19] MEDS: PREGABALIN 75 MG (LYRICA) CAP PO SCH ×2 (08:32→20:44)
[2017-04-19] MEDS: clonazePAM 0.5 MG (KlonoPIN) TAB PO SCH ×4 (08:33→12:53)
--- NOTE | 2017-04-19 08:33 | Physical Therapy Daily Note ---
PT Daily Note-Current Subjective Patient in bed pre tx, agrees to PT, no complaints of pain. OT would like to get him into a shower, wants to transfer him from his power chair to a tub bench. He needs to get some underwear on and transfer to his wheelchair. Appearance Patient in power chair post tx with O2 on the back. Mental Status Patient Orientation: Normal For Age Attachments: Oxygen Transfers Functional [place] Measure 0=Not Assessed/NA 4=Minimal Assistance 1=Total Assistance 5=Supervision or Setup 2=Maximal Assistance 6=Modified [place] 3=Moderate Assistance 7=Complete IndependenceIRFPAI Quality Coding Scale 6 Independent with activity with or without an assistive device 5 Patient requires set up or clean up by helper. Patient completes activity by themselves 4 Supervision or touching assist (CGA). [place] provide cues , steadying assist 3 The helper provides less than half the effort to complete the activity 2 The helper provides more than half the effort to complete the activity 1 Dependent. The helper does all the effort to complete an activity 7 Patient refused to complete or attempt activity 9 The patient did not perform the activity before the current illness or injury 88 Not attempted due to Medical conditions or safety concerns Transfers (B, C, W/C) (FIM): 4 Scootin Rollin Supine to/from Sit: 4 Bed to/from Chair: 4 Patient was able to perform a sliding board transfer with min assist from bed to chair. He needed to roll many times back and forth to get his underwear on. Treatments bed mobility, transfer, dressing Assessment Current Status: Fair Progress Patient performed a bed to chair transfer much better using a sliding board. PT Short Term Goals Short Term Goals Time Frame: Apr 19, 2017 Wheelchair (FIM): 5 Wheelchair distance (FIM): 3=150 ft Wheelchair Distance: 200' Wheelchair Level of Assist: 5 PT Correction Goals Correction Goals PT Correction Goals Time Frame: May 10, 2017 Transfers (B,C,W/C) (FIM): 5 Sit to Lying (QC): 5 Lying-Sitting on Side/Bed(QC): 5 Sit to Stand (QC): 9 Rollin Roll Left to Right (QC): 5 Chair/Qst-sf-Gyeen Xfer(QC): 5 Car Transfer (QC): 9 Does the Patient Walk: No and Walking Goal NOT indicated Does the Pt use WC or Scooter?: Yes Wheelchair (FIM): 5 Wheelchair distance (FIM): 3=150 ft Distance: 300' Wheelchair Level of Assist: 5 Wheel 50 feet with 2 turns (QC: 5 1 Step (curb) (QC): 9 4 Steps (QC): 9 12 Steps (QC): 9 Picking up an Object (QC): 4 PT Plan Problem List Problem List: Activity Tolerance, Functional Strength, Safety, Balance, Gait, Transfer, Bed Mobility, ROM Treatment/Plan Treatment Plan: Continue Plan of Care Treatment Plan: Bed Mobility, Education, Functional Activity Carolyn, Functional Strength, Group Therapy, Safety, Therapeutic Exercise, Transfers Treatment Duration: May 10, 2017 Visits Per Week: 11 Minutes/Day (M-F): 60-90 Minutes/Day (Sat/Adame): PRN Safety Risks/Education Patient Education: Transfer Techniques, Correct Positioning, Safety Issues Teaching Recipient: Patient Teaching Methods: Demonstration, Discussion Response to Teaching: Reinforcement Needed Time/GCodes Time In: 800 Time Out: 830 Total Billed Treatment Time: 30 Total Billed Treatment 1 visit FA 30' ADA CARRILLO PT Apr 19, 2017 08:33
--- NOTE | 2017-04-19 08:48 | Progress Note (SOAP) ---
Subjective Time Seen by Provider: 08:45 Objective Exam Vital Signs Date Time Temp Pulse Resp B/P (MAP) Pulse Ox O2 Delivery O2 Flow Rate FiO2 04/19/17 06:43 94 2.50 04/19/17 05:02 97.8 69 20 117/59 93 2.50 04/18/17 20:00 2.50 04/18/17 19:29 95 2.50 04/18/17 18:05 97.6 64 14 120/72 92 2.50 04/18/17 15:43 2.50 04/18/17 08:52 2.50 I & O 04/19/17 07:00 Intake Total 1990 ml Output Total 2750 ml Balance -760 ml Capillary Refill : General Appearance: No Apparent Distress, WD/WN HEENT: Normal ENT Inspection Neck: Full Range of Motion Respiratory: Chest Non Tender, No Accessory Muscle Use, No Respiratory Distress Cardiovascular: Regular Rate, Rhythm, No Murmur Gastrointestinal: non tender Results Lab Microbiology 04/18/17 Throat Culture - Preliminary, Resulted Assessment/Plan Assessment/Plan Assess & Plan/Chief Complaint 04/18/17. Patient having a sore throat today. Patient having muscle cramps in legs. Patient put on Neurontin. Rapid strep screen ordered. . 04/19/17. Lumbar radiculopathy. Patient having no complaints. Strep screen negative. Patient on Lyrica does not need Neurontin. Patient states he is improving Clinical Quality Measures DVT/VTE Risk/Contraindication: Risk Factor Score Per Nursin RFS Level Per Nursing on Admit: 4+=Very High MILAD MULLER DO Apr 19, 2017 08:48
[2017-04-19] MEDS: CALCIUM CARBONATE 500 MG (TUMS) TAB.CHEW PO PRN (09:28)
--- NOTE | 2017-04-19 09:36 | Occupational Ther Daily Note ---
OT Current Status-Daily Note Subjective Pt seen in room, up in power chair, agreeable to OT and shower. No pain mentioned. Appearance Alert, cooperative Mental Status/Objective Functional [place] Measure 0=Not Assessed/NA 4=Minimal Assistance 1=Total Assistance 5=Supervision or Setup 2=Maximal Assistance 6=Modified [place] 3=Moderate Assistance 7=Complete [place] ADL-Treatment Pt had put underwear on to make sliding board transfer easier. Pt took himself to shower room per power chair and positioned chair to do sliding board transfer to transfer tub bench. Pt did transfer with mod assist, then leaned side to side to pull underwear down. Underwear got stuck in the middle and required PT to help to partially stand pt so pants could be pulled off. Unable to manage socks in sitting position. Pt was able to wash and dry all parts except bottom and back, using transfer tub bench, grab bars, hand held shower and long handled sponge. Pt's transfer back to power chair was more difficult due to wet skin on sliding board and required two people for safety, with help to pull him back into chair. Pt took himself back to his room and brushed teeth combed hair with setup. He was very fatigued after shower and transfers. O2 at 3L/min throughout tx. Pt left up in power chair, all needs met. Functional [place] Measure 0=Not Assessed/NA 4=Minimal Assistance 1=Total Assistance 5=Supervision or Setup 2=Maximal Assistance 6=Modified [place] 3=Moderate Assistance 7=Complete IndependenceIRFPAI Quality Coding Scale 6 Independent with activity with or without an assistive device 5 Patient requires set up or clean up by helper. Patient completes activity by themselves 4 Supervision or touching assist (CGA). [place] provide cues , steadying assist 3 The helper provides less than half the effort to complete the activity 2 The helper provides more than half the effort to complete the activity 1 Dependent. The helper does all the effort to complete an activity 7 Patient refused to complete or attempt activity 9 The patient did not perform the activity before the current illness or injury 88 Not attempted due to Medical conditions or safety concerns Grooming (FIM): 5 Bathing (FIM): 4 Shower Transfer(FIM): 1 Education OT Patient Education: Modified ADL techniques, Purpose of tx/functional activities, Transfer techniques, Use of adapted equipment Teaching Recipient: Patient Teaching Methods: Demonstration, Discussion Response to Teaching: Verbalize Understanding, Return Demonstration, Reinforcement Needed OT Short Term Goals Short Term Goals Time Frame: Apr 26, 2017 Lower Body Dressing(FIM): 4 Toilet/Commode Transfer(FIM): 3 Shower Transfer(FIM): 3 Additional Short Term Goals: 2-Verbalize Understanding, 3-ImproveStrength/[place] 1=Demonstrate adherence to instructed precautions during ADL tasks. 2=Patient will verbalize/demonstrate understanding of assistive devices/ modifications for ADL. 3=Patient will improve strength/tolerance for activity to enable patient to perform ADL's. OT Project Drilling Engineer Goals Jail Goals Time Frame: May 10, 2017 Eating (FIM): 7 Eating (QC): 7 Groomin Oral Hygiene (QC): 6 Bathing(FIM): 5 Shower/Bathe Self (QC): 5 Upper Body Dressing(FIM): 6 Upper Body Dressing (QC): 6 Lower Body Dressing(FIM): 6 Lower Body Dressing (QC): 6 On/Off Footwear (QC): 6 Toileting(FIM): 6 Toileting Hygiene (QC): 6 Toilet/Commode Transfer(FIM): 6 Toilet/Commode Transfer (QC): 6 Shower Transfer(FIM): 6 Additional Goals: 2-Verbalize Understanding, 3-ImproveStrength/Carolyn 1=Demonstrate adherence to instructed precautions during ADL tasks. 2=Patient will verbalize/demonstrate understanding of assistive devices/ modifications for ADL. 3=Patient will improve strength/tolerance for activity to enable patient to perform ADL's. OT Education/Plan Problem List/Assessment Pt would benefit from skilled OT to increase his independence in basic self care to allow him to safely return to his home to live as independently as possible and to decrease caregiver burden. Discharge Recommendations Plan/Recommendations: Continue POC Treatment Plan/Plan of Care Patient would benefit from OT for education, treatment and training to promote independence in ADL's, mobility, safety and/or upper extremity function for ADL' s. Plan of Care: ADL Retraining, Functional Mobility, Group Exercise/Act as Ind ( education, exercise, mobility, functional activities, socialization), UE Neuromus Re-Ed/Coord Treatment Duration: May 10, 2017 Visits Per Week: 10-11 Minutes/Day (M-F): 75-90 Minutes/Day (Sat/Adame): PRN Agreement: Yes Rehab Potential: Fair Time/GCodes Start Time: 08:30 Stop Time: 09:30 Total Time Billed (hr/min): 60 Billed Treatment Time visit, ADL 60 minutes TIAGO KRUEGER OT Apr 19, 2017 09:36
--- NOTE | 2017-04-19 10:33 | Physical Therapy Daily Note ---
PT Daily Note-Current Subjective Patient in power chair at bedside pre tx, agrees to PT, would like to get his underwear on, only wearing a gown. No complaints of pain. Appearance Patient in chair post tx with nurse call, phone, tray, all needs met. Mental Status Patient Orientation: Normal For Age Attachments: Oxygen Transfers Functional [place] Measure 0=Not Assessed/NA 4=Minimal Assistance 1=Total Assistance 5=Supervision or Setup 2=Maximal Assistance 6=Modified [place] 3=Moderate Assistance 7=Complete IndependenceIRFPAI Quality Coding Scale 6 Independent with activity with or without an assistive device 5 Patient requires set up or clean up by helper. Patient completes activity by themselves 4 Supervision or touching assist (CGA). [place] provide cues , steadying assist 3 The helper provides less than half the effort to complete the activity 2 The helper provides more than half the effort to complete the activity 1 Dependent. The helper does all the effort to complete an activity 7 Patient refused to complete or attempt activity 9 The patient did not perform the activity before the current illness or injury 88 Not attempted due to Medical conditions or safety concerns Patient performed sit to stand (but could no stand completely) with max assist several times while another therapist pulled up patients underwear Exercises right LE LAQ for 5 min, AP and hip flexion x20. Left lower extremity knee flexion x20 (patient cannot perform any other movement on that side) Treatments dressing, sit to stand, functional strengthening Assessment Current Status: Poor Progress no change in mobility PT Short Term Goals Short Term Goals Time Frame: Apr 19, 2017 Wheelchair (FIM): 5 Wheelchair distance (FIM): 3=150 ft Wheelchair Distance: 200' Wheelchair Level of Assist: 5 PT Junior Accountant Bookkeeper Goals Correction Goals PT Correction Goals Time Frame: May 10, 2017 Transfers (B,C,W/C) (FIM): 5 Sit to Lying (QC): 5 Lying-Sitting on Side/Bed(QC): 5 Sit to Stand (QC): 9 Rollin Roll Left to Right (QC): 5 Chair/Esx-ie-[place] Xfer(QC): 5 Car Transfer (QC): 9 Does the Patient Walk: No and Walking Goal NOT indicated Does the Pt use WC or Scooter?: Yes Wheelchair (FIM): 5 Wheelchair distance (FIM): 3=150 ft Distance: 300' Wheelchair Level of Assist: 5 Wheel 50 feet with 2 turns (QC: 5 1 Step (curb) (QC): 9 4 Steps (QC): 9 12 Steps (QC): 9 Picking up an Object (QC): 4 PT Plan Problem List Problem List: Activity Tolerance, Functional Strength, Safety, Balance, Gait, Transfer, Bed Mobility, ROM Treatment/Plan Treatment Plan: Continue Plan of Care Treatment Plan: Bed Mobility, Education, Functional Activity Carolyn, Functional Strength, Group Therapy, Safety, Therapeutic Exercise, Transfers Treatment Duration: May 10, 2017 Visits Per Week: 11 Minutes/Day (M-F): 60-90 Minutes/Day (Sat/Adame): PRN Safety Risks/Education Patient Education: Transfer Techniques, Correct Positioning, W/C Management, Safety Issues Teaching Recipient: Patient Teaching Methods: Demonstration, Discussion Response to Teaching: Reinforcement Needed Time/GCodes Time In: 1000 Time Out: 1030 Total Billed Treatment Time: 30 Total Billed Treatment 1 visit FA 15' EX 15' ADA CARRILLO PT Apr 19, 2017 10:33
[2017-04-19] MEDS ORDERED: MILK OF MAGNESIA 400 MG/5 ML 30 ML UDC PO PRN (11:15)
--- NOTE | 2017-04-19 11:37 | Physical Therapy Daily Note ---
PT Daily Note-Current Subjective Patient agrees to PT. Pain Numeric Pain Scale: 0-No Pain Location: No Pain Reported Mental Status Patient Orientation: Normal For Age Attachments: Oxygen Transfers Functional [place] Measure 0=Not Assessed/NA 4=Minimal Assistance 1=Total Assistance 5=Supervision or Setup 2=Maximal Assistance 6=Modified [place] 3=Moderate Assistance 7=Complete IndependenceIRFPAI Quality Coding Scale 6 Independent with activity with or without an assistive device 5 Patient requires set up or clean up by helper. Patient completes activity by themselves 4 Supervision or touching assist (CGA). [place] provide cues , steadying assist 3 The helper provides less than half the effort to complete the activity 2 The helper provides more than half the effort to complete the activity 1 Dependent. The helper does all the effort to complete an activity 7 Patient refused to complete or attempt activity 9 The patient did not perform the activity before the current illness or injury 88 Not attempted due to Medical conditions or safety concerns Transfers (B, C, W/C) (FIM): 3 Scootin Rollin Roll Left to Right (QC): 5 Supine to/from Sit: 4 Sit to/from Stand: 3 (x 5 sets in the parallel bars) Sit to Lying (QC): 5 Sit to Stand (QC): 3 Chair/Sdy-nb-Fqrrr Xfer(QC): 4 Bed to/from Chair: 4 slide board transfers power chair to commode (for BM) to bed with placing bed in Trendelenburg to allow patient to perform bed mobility SBA. Gait Training Does the Patient Walk?: No and Walking Goal NOT indicated Wheelchair Training Does the Pt Use a Wheelchair?: Yes Assessment Patient utilized slide board for transfers power chair to commode to bed after standing in parallel bars. Patient tolerated treatment well and is in bed with needs met. PT Short Term Goals Short Term Goals Time Frame: Apr 19, 2017 Wheelchair (FIM): 5 Wheelchair distance (FIM): 3=150 ft Wheelchair Distance: 200' Wheelchair Level of Assist: 5 PT Veneer Taper Goals Veneer Taper Goals PT Veneer Taper Goals Time Frame: May 10, 2017 Transfers (B,C,W/C) (FIM): 5 Sit to Lying (QC): 5 Lying-Sitting on Side/Bed(QC): 5 Sit to Stand (QC): 9 Rollin Roll Left to Right (QC): 5 Chair/Zwd-dz-[place]mp[place] Xfer(QC): 5 Car Transfer (QC): 9 Does the Patient Walk: No and Walking Goal NOT indicated Does the Pt use WC or Scooter?: Yes Wheelchair (FIM): 5 Wheelchair distance (FIM): 3=150 ft Distance: 300' Wheelchair Level of Assist: 5 Wheel 50 feet with 2 turns (QC: 5 1 Step (curb) (QC): 9 4 Steps (QC): 9 12 Steps (QC): 9 Picking up an Object (QC): 4 PT Plan Treatment/Plan Treatment Plan: Continue Plan of Care Treatment Plan: Bed Mobility, Education, Functional Activity Carolyn, Functional Strength, Group Therapy, Safety, Therapeutic Exercise, Transfers Treatment Duration: May 10, 2017 Visits Per Week: 11 Minutes/Day (M-F): 60-90 Minutes/Day (Sat/Adame): PRN Time/GCodes Time In: 1100 Time Out: 1130 Total Billed Treatment Time: 30 Total Billed Treatment 1 visit FA x 2 30 min DAMIR COLON PT Apr 19, 2017 11:37
--- NOTE | 2017-04-19 15:48 | Occupational Ther Daily Note ---
OT Current Status-Daily Note Subjective Pt seen in room, up in bed, finishing lunch. Agreeable to OT. No pain mentioned. Appearance Alert, cooperative Mental Status/Objective Functional [place] Measure 0=Not Assessed/NA 4=Minimal Assistance 1=Total Assistance 5=Supervision or Setup 2=Maximal Assistance 6=Modified [place] 3=Moderate Assistance 7=Complete [place] ADL-Treatment Functional [place] Measure 0=Not Assessed/NA 4=Minimal Assistance 1=Total Assistance 5=Supervision or Setup 2=Maximal Assistance 6=Modified [place] 3=Moderate Assistance 7=Complete IndependenceIRFPAI Quality Coding Scale 6 Independent with activity with or without an assistive device 5 Patient requires set up or clean up by helper. Patient completes activity by themselves 4 Supervision or touching assist (CGA). [place] provide cues , steadying assist 3 The helper provides less than half the effort to complete the activity 2 The helper provides more than half the effort to complete the activity 1 Dependent. The helper does all the effort to complete an activity 7 Patient refused to complete or attempt activity 9 The patient did not perform the activity before the current illness or injury 88 Not attempted due to Medical conditions or safety concerns Other Treatment Pt education on post discharge fitness and therapy opportunities for him at [place]. Pt education on several different theraband exercises, going over written instructions. Pt was able to do 15 reps each exercise with some verbal feedback on doing exercise correctly, red (medium) theraband. Pt had discomfort in L elbow (old injury) with ER exercise so will try decreasing reps. Pt left up in bed, all needs met. Education OT Patient Education: Exercise program OT Short Term Goals Short Term Goals Time Frame: Apr 26, 2017 Lower Body Dressing(FIM): 4 Toilet/Commode Transfer(FIM): 3 Shower Transfer(FIM): 3 Additional Short Term Goals: 2-Verbalize Understanding, 3-ImproveStrength/Carolyn 1=Demonstrate adherence to instructed precautions during ADL tasks. 2=Patient will verbalize/demonstrate understanding of assistive devices/ modifications for ADL. 3=Patient will improve strength/tolerance for activity to enable patient to perform ADL's. OT Usp Goals Cook Dinner Goals Time Frame: May 10, 2017 Eating (FIM): 7 Eating (QC): 7 Groomin Oral Hygiene (QC): 6 Bathing(FIM): 5 Shower/Bathe Self (QC): 5 Upper Body Dressing(FIM): 6 Upper Body Dressing (QC): 6 Lower Body Dressing(FIM): 6 Lower Body Dressing (QC): 6 On/Off Footwear (QC): 6 Toileting(FIM): 6 Toileting Hygiene (QC): 6 Toilet/Commode Transfer(FIM): 6 Toilet/Commode Transfer (QC): 6 Shower Transfer(FIM): 6 Additional Goals: 2-Verbalize Understanding, 3-ImproveStrength/Carolyn 1=Demonstrate adherence to instructed precautions during ADL tasks. 2=Patient will verbalize/demonstrate understanding of assistive devices/ modifications for ADL. 3=Patient will improve strength/tolerance for activity to enable patient to perform ADL's. OT Education/Plan Problem List/Assessment Pt would benefit from skilled OT to increase his independence in basic self care to allow him to safely return to his home to live as independently as possible and to decrease caregiver burden. Discharge Recommendations Plan/Recommendations: Continue POC Treatment Plan/Plan of Care Patient would benefit from OT for education, treatment and training to promote independence in ADL's, mobility, safety and/or upper extremity function for ADL' s. Plan of Care: ADL Retraining, Functional Mobility, Group Exercise/Act as Ind ( education, exercise, mobility, functional activities, socialization), UE Neuromus Re-Ed/Coord Treatment Duration: May 10, 2017 Visits Per Week: 10-11 Minutes/Day (M-F): 75-90 Minutes/Day (Sat/Adame): PRN Agreement: Yes Rehab Potential: Fair Time/GCodes Start Time: 13:00 Stop Time: 13:30 Total Time Billed (hr/min): 30 Billed Treatment Time visit, 30 minutes exercise TIAGO KRUEGER OT Apr 19, 2017 15:48
[2017-04-19 18:07] VITALS: BP 116/71
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
[2017-04-19] MEDS: ATORVASTATIN 40 MG (LIPITOR) TABLET PO SCH (20:43)
[2017-04-19] MEDS: clonazePAM 1 MG (KlonoPIN) TAB PO SCH (20:44)
[2017-04-19] MEDS: CHLORASEPTIC LOZENGE MM PRN (20:48)
[2017-04-20 05:41] VITALS: BP 131/73
[2017-04-20] MEDS: oxyCODONE/APAP 10/325MG (PERCOCET 10) TABLET PO PRN ×3 (05:57→17:19)
[2017-04-20] MEDS: LEVOTHYROXINE 150 MCG (LEVOTHROID) TAB PO SCH (05:57)
[2017-04-20] MEDS: FAMOTIDINE 20 MG (PEPCID) TABLET PO SCH (06:02)
[2017-04-20] MEDS: metFORMIN 500 MG (GLUCOPHAGE) TAB PO SCH ×2 (06:02→17:17)
[2017-04-20] MEDS: predniSONE 20 MG TAB PO SCH (06:02)
[2017-04-20] MEDS: KCL 10 MEQ TAB (MICRO K) PO SCH (06:02)
--- NOTE | 2017-04-20 08:01 | Progress Note (SOAP) ---
Subjective Time Seen by Provider: 07:45 Subjective/Events-last exam lumbar radiculopathy. Patient states he is doing better. Patient felt he has improved by 60 percent. Patient voices no complaints today Objective Exam Vital Signs Date Time Temp Pulse Resp B/P (MAP) Pulse Ox O2 Delivery O2 Flow Rate FiO2 04/20/17 07:34 2.50 04/20/17 05:41 97.6 65 18 131/73 92 04/19/17 20:50 2.50 04/19/17 18:38 90 2.00 04/19/17 18:07 98.7 72 16 116/71 91 04/19/17 08:00 2.50 I & O 04/20/17 07:00 Intake Total 2020 ml Output Total 3125 ml Balance -1105 ml Capillary Refill : General Appearance: No Apparent Distress HEENT: Normal ENT Inspection Neck: Normal Inspection Respiratory: Chest Non Tender, No Accessory Muscle Use, No Respiratory Distress Cardiovascular: Regular Rate, Rhythm, No Murmur Results Lab Microbiology 04/18/17 Throat Culture - Preliminary, Resulted Assessment/Plan Assessment/Plan Assess & Plan/Chief Complaint 04/18/17. Patient having a sore throat today. Patient having muscle cramps in legs. Patient put on Neurontin. Rapid strep screen ordered. . 04/19/17. Lumbar radiculopathy. Patient having no complaints. Strep screen negative. Patient on Lyrica does not need Neurontin. Patient states he is improving. . 04/20/17. Patient states he is improving. Patient doing better. Patient sees his own improvement Clinical Quality Measures DVT/VTE Risk/Contraindication: Risk Factor Score Per Nursin RFS Level Per Nursing on Admit: 4+=Very High MILAD MULLER DO Apr 20, 2017 08:00
[2017-04-20] MEDS: ASPIRIN E.C. 81 MG (ECOTRIN) TAB PO SCH (08:14)
[2017-04-20] MEDS: PREGABALIN 75 MG (LYRICA) CAP PO SCH ×2 (08:14→20:37)
[2017-04-20] MEDS: clonazePAM 0.5 MG (KlonoPIN) TAB PO SCH ×4 (08:14→12:36)
[2017-04-20] MEDS: FUROSEMIDE 20 MG (LASIX) TAB PO SCH (08:14)
[2017-04-20] MEDS: DOCUSATE SODIUM 100 MG (COLACE) CAP PO SCH ×2 (08:15→20:37)
[2017-04-20] MEDS: meTOprolol TARTRATE 25 MG (LOPRESSOR) TABLET PO SCH ×2 (08:15→20:37)
[2017-04-20] MEDS: RT-ADVAIR HFA 115/21 MCG PER PUFF IH SCH ×2 (08:45→20:01)
[2017-04-20] MEDS: CHLORASEPTIC LOZENGE MM PRN (08:51)
--- NOTE | 2017-04-20 09:55 | Occupational Ther Daily Note ---
OT Current Status-Daily Note Subjective Pt. requests to use the urinal. States, "it takes me a lot longer than normal people." No pain reported. Appearance Pt. in bed listening to audio book. Alert and oriented. Declines showering again this date, but agrees to spongebathe in bed. Mental Status/Objective Patient Orientation: Person Functional [place] Measure 0=Not Assessed/NA 4=Minimal Assistance 1=Total Assistance 5=Supervision or Setup 2=Maximal Assistance 6=Modified [place] 3=Moderate Assistance 7=Complete [place] ADL-Treatment Functional [place] Measure 0=Not Assessed/NA 4=Minimal Assistance 1=Total Assistance 5=Supervision or Setup 2=Maximal Assistance 6=Modified [place] 3=Moderate Assistance 7=Complete IndependenceIRFPAI Quality Coding Scale 6 Independent with activity with or without an assistive device 5 Patient requires set up or clean up by helper. Patient completes activity by themselves 4 Supervision or touching assist (CGA). [place] provide cues , steadying assist 3 The helper provides less than half the effort to complete the activity 2 The helper provides more than half the effort to complete the activity 1 Dependent. The helper does all the effort to complete an activity 7 Patient refused to complete or attempt activity 9 The patient did not perform the activity before the current illness or injury 88 Not attempted due to Medical conditions or safety concerns Bathing (FIM): 4 (Pt. is able to reach all parts at bed level, but requires assistance to wash rear nasrin area.) Shower/Bathe Self (QC): 4 Upper Body (FIM): 4 (Pt. is able to don shirt over head, but requires assistance to pull shirt down in back and over belly.) Upper Body Dressing (QC): 4 Lower Body Dressing (FIM): 4 (Pt. is able to don socks. Is able to don underwear and pants over feet and up to thighs. Is able to pull most of way up but requires assistance to pull pants up over hips.) Lower Body Dressing (QC): 4 On/Off Footwear (QC): 5 Toileting (FIM): 3 (Pt. is able to use urinal with no difficulty at bed level. However, noted that pt. was slightly incontinent of bowel in his underwear. Required assistance to cleanse rear nasrin area and pull pants over hips.) Toileting Hygiene (QC): 2 Other Treatment Pt. is able to roll in bed with mod assistance depending on which way he rolls. Does not have active movement in left LE so he is unable to push with that leg to roll to right side. Completed all ADL tasks at bed level. All needs met in room. Education OT Patient Education: Correct positioning, Modified ADL techniques, Progress toward Goal/Update tx plan, Purpose of tx/functional activities, Reviewed precautions, Rehab process, Transfer techniques Teaching Recipient: Patient Teaching Methods: Demonstration, Discussion Response to Teaching: Verbalize Understanding, Return Demonstration OT Short Term Goals Short Term Goals Time Frame: Apr 26, 2017 Lower Body Dressing(FIM): 4 Toilet/Commode Transfer(FIM): 3 Shower Transfer(FIM): 3 Additional Short Term Goals: 2-Verbalize Understanding, 3-ImproveStrength/Carolyn 1=Demonstrate adherence to instructed precautions during ADL tasks. 2=Patient will verbalize/demonstrate understanding of assistive devices/ modifications for ADL. 3=Patient will improve strength/tolerance for activity to enable patient to perform ADL's. OT Technical Solutions Engineer Goals Technical Solutions Engineer Goals Time Frame: May 10, 2017 Eating (FIM): 7 Eating (QC): 7 Groomin Oral Hygiene (QC): 6 Bathing(FIM): 5 Shower/Bathe Self (QC): 5 Upper Body Dressing(FIM): 6 Upper Body Dressing (QC): 6 Lower Body Dressing(FIM): 6 Lower Body Dressing (QC): 6 On/Off Footwear (QC): 6 Toileting(FIM): 6 Toileting Hygiene (QC): 6 Toilet/Commode Transfer(FIM): 6 Toilet/Commode Transfer (QC): 6 Shower Transfer(FIM): 6 Additional Goals: 2-Verbalize Understanding, 3-ImproveStrength/Carolyn 1=Demonstrate adherence to instructed precautions during ADL tasks. 2=Patient will verbalize/demonstrate understanding of assistive devices/ modifications for ADL. 3=Patient will improve strength/tolerance for activity to enable patient to perform ADL's. OT Education/Plan Problem List/Assessment Assessment: Decreased Activ Tolerance, Dependent Transfers, Impaired Bed Mobility, Impaired Funct Balance, Impaired I ADL's, Impaired Self-Care Skills Pt would benefit from skilled OT to increase his independence in basic self care to allow him to safely return to his home to live as independently as possible and to decrease caregiver burden. Discharge Recommendations Plan/Recommendations: Continue POC Therapy D/C Recommendations: Assisted Living Treatment Plan/Plan of Care Treatment,Training & Education: Yes Patient would benefit from OT for education, treatment and training to promote independence in ADL's, mobility, safety and/or upper extremity function for ADL' s. Plan of Care: ADL Retraining, Functional Mobility, Group Exercise/Act as Ind ( education, exercise, mobility, functional activities, socialization), UE Neuromus Re-Ed/Coord Treatment Duration: May 10, 2017 Visits Per Week: 10-11 Minutes/Day (M-F): 75-90 Minutes/Day (Sat/Adame): PRN Agreement: Yes Rehab Potential: Fair Time/GCodes Start Time: 07:50 Stop Time: 08:50 Total Time Billed (hr/min): 60 Billed Treatment Time 1, ADL x 4 SYLVESTER CISNEROS OT Apr 20, 2017 09:55
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
--- NOTE | 2017-04-20 14:45 | Physical Therapy Daily Note ---
PT Daily Note-Current Subjective Pt is sitting up in bed upon arrival. Pt reports pain in R hip (Sciatic) and knee as well as LLE (cramping). Pt reports receiving pain med already and agrees to PT. Pain Numeric Pain Scale: 7 Location: Right Location Body Site: Hip Pain Description: Sharp Mental Status Patient Orientation: Person, Place, Time, Situation Attachments: Oxygen (2.5L) Transfers Functional [place] Measure 0=Not Assessed/NA 4=Minimal Assistance 1=Total Assistance 5=Supervision or Setup 2=Maximal Assistance 6=Modified [place] 3=Moderate Assistance 7=Complete IndependenceIRFPAI Quality Coding Scale 6 Independent with activity with or without an assistive device 5 Patient requires set up or clean up by helper. Patient completes activity by themselves 4 Supervision or touching assist (CGA). [place] provide cues , steadying assist 3 The helper provides less than half the effort to complete the activity 2 The helper provides more than half the effort to complete the activity 1 Dependent. The helper does all the effort to complete an activity 7 Patient refused to complete or attempt activity 9 The patient did not perform the activity before the current illness or injury 88 Not attempted due to Medical conditions or safety concerns Scootin Rollin Roll Left to Right (QC): 4 Supine to/from Sit: 4 Sit to/from Stand: 2 Sit to Lying (QC): 4 Sit to Stand (QC): 2 Chair/[id number] Xfer(QC): 5 Bed to/from Chair: 5 Weight Bearing Weight Bearing Restriction: Full Weight Bearing Location Restriction: LE Bilateral Wheelchair Training Does the Pt Use a Wheelchair?: Yes Wheelchair Distance: 3=150 ft Distance: 150' Wheelchair Level of Assist: 5 Wheel 50 ft with 2 turns (QC): 5 Wheel 150 ft (QC): 5 Type of Wheelchair: Motorized Exercises Supine Ex: Rolling, Scooting Supine Reps: 5 Seated Therapy Exercises: Sit to stand Seated Reps: 5 Treatments Pt completed 5 rolls side to side to test bed mobility then 5 Supine to EOB sitting. After short rest, Pt completed slide board transfer independently with PT at [facility] for spotting for balance. Pt propelled [facility] to Therapy Gym to practice Sit to Stands from [facility] at //bars. Pt attempted 3x before moving to side of //bars to attempt by pulling up as PT assisted at [facility]. Pt then needed to return to room to rest and use urinal. Pt transferred back to Supine in bed via slide board from [facility]. Pt is laying Supine in bed at end of tx with all needs met. Assessment Current Status: Fair Progress Pt attempts transfers and bed mobility although still demonstrating weakness especially on LLE. Pt continued difficulty standing up from [facility]. PT Short Term Goals Short Term Goals Time Frame: Apr 19, 2017 Wheelchair (FIM): 5 Wheelchair distance (FIM): 3=150 ft Wheelchair Distance: 200' Wheelchair Level of Assist: 5 PT Block Feeder Goals Block Feeder Goals PT Block Feeder Goals Time Frame: May 10, 2017 Transfers (B,C,W/C) (FIM): 5 Sit to Lying (QC): 5 Lying-Sitting on Side/Bed(QC): 5 Sit to Stand (QC): 9 Rollin Roll Left to Right (QC): 5 Chair/Kqo-hx-Gpcyh Xfer(QC): 5 Car Transfer (QC): 9 Does the Patient Walk: No and Walking Goal NOT indicated Does the Pt use WC or Scooter?: Yes Wheelchair (FIM): 5 Wheelchair distance (FIM): 3=150 ft Distance: 300' Wheelchair Level of Assist: 5 Wheel 50 feet with 2 turns (QC: 5 1 Step (curb) (QC): 9 4 Steps (QC): 9 12 Steps (QC): 9 Picking up an Object (QC): 4 PT Plan Problem List Problem List: Activity Tolerance, Functional Strength, Safety, Balance, Gait, Transfer, Bed Mobility Treatment/Plan Treatment Plan: Continue Plan of Care Treatment Plan: Bed Mobility, Education, Functional Activity Carolyn, Functional Strength, Group Therapy, Safety, Therapeutic Exercise, Transfers Treatment Duration: May 10, 2017 Visits Per Week: 11 Minutes/Day (M-F): 60-90 Minutes/Day (Sat/Adame): PRN Safety Risks/Education Patient Education: Transfer Techniques, Correct Positioning, W/C Management, Safety Issues Teaching Recipient: Patient Teaching Methods: Discussion Response to Teaching: Verbalize Understanding Time/GCodes Time In: 900 Time Out: 1000 Total Billed Treatment Time: 60 Total Billed Treatment visit, EX x2 (30m), FA (15m) & [facility] (15m) MEGHANA FERNÁNDEZ PTA Apr 20, 2017 14:45
--- NOTE | 2017-04-20 16:21 | Therapy Group Daily Note ---
Therapy Daily Group Note Patient Education Topic Other List Below (Education on Ex that can be done in room between ARU tx) Exercises LE Seated Exercise, UE Exercise Other/Notes Pt propelled [facility] to PT/OT Group in Therapy [facility]. Group consists of Introductions (Name, Where you live and Favorite Summertime Activity), Socialization, ARU Description and Expectations, UE/LE EX, as well as Inspirational Word of Encouragement. Pt actively participated in Group by giving appropriate responses to Questions when asked and participating in Ex with Group, Pt gave assistance with LLE. Pt returned to room via [facility] and slide board transferred into bed to rest at end of tx with all needs met. Start Time: 13:00 Stop Time: 14:10 Total Billed Treatment Time: 70 Total Billed Treatment visit, MEGHANA ALBA EAR PULL MACHINE OPERATOR Apr 20, 2017 16:21
[2017-04-20 17:54] VITALS: BP 113/64
[2017-04-20] MEDS: ATORVASTATIN 40 MG (LIPITOR) TABLET PO SCH (20:37)
[2017-04-20] MEDS: clonazePAM 1 MG (KlonoPIN) TAB PO SCH (20:37)
[2017-04-21] MEDS: oxyCODONE/APAP 10/325MG (PERCOCET 10) TABLET PO PRN ×4 (02:52→22:13)
[2017-04-21 05:36] VITALS: BP 126/73
[2017-04-21 05:54] LABS: MEAN PLATELET VOLUME 10.3 FL (7.4-10.4); RED BLOOD COUNT 4.17 10^6/uL (4.35-5.85); RED CELL DISTRIBUTION WIDTH 14.5 % (10.0-14.5); WHITE BLOOD COUNT 10.4 10^3/uL (4.3-11.0)
[2017-04-21 06:19] LABS: ANION GAP 8 MMOL/L (5-14); BLOOD UREA NITROGEN 25 MG/DL (7-18); BUN/CREATININE RATIO 26; CALCIUM 8.6 MG/DL (8.5-10.1); CARBON DIOXIDE 34 MMOL/L (21-32); CHLORIDE 97 MMOL/L (98-107); CREATININE SERUM 0.96 MG/DL (0.60-1.30); GFR ESTIMATED > 60; GLUCOSE 127 MG/DL (70-105); POTASSIUM 4.8 MMOL/L (3.6-5.0); SODIUM 139 MMOL/L (135-145)
[2017-04-21] MEDS: LEVOTHYROXINE 150 MCG (LEVOTHROID) TAB PO SCH (06:27)
[2017-04-21] MEDS: predniSONE 20 MG TAB PO SCH (06:27)
[2017-04-21] MEDS: KCL 10 MEQ TAB (MICRO K) PO SCH (06:27)
[2017-04-21] MEDS: metFORMIN 500 MG (GLUCOPHAGE) TAB PO SCH ×2 (06:27→16:42)
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
[2017-04-21] MEDS: CALCIUM CARBONATE 500 MG (TUMS) TAB.CHEW PO PRN (07:46)
--- NOTE | 2017-04-21 08:21 | Progress Note (SOAP) ---
Subjective Time Seen by Provider: 08:20 Subjective/Events-last exam lumbar radiculopathy. Patient feels he is improving. Patient not having any complaint this morning Objective Exam Vital Signs Date Time Temp Pulse Resp B/P (MAP) Pulse Ox O2 Delivery O2 Flow Rate FiO2 04/21/17 05:36 96.8 63 18 126/73 95 2.00 04/20/17 20:30 2.50 04/20/17 20:01 96 2.00 04/20/17 17:54 98.1 71 18 113/64 94 2.50 04/20/17 08:49 94 2.00 I & O 04/21/17 07:00 Intake Total 2000 ml Output Total 1200 ml Balance 800 ml Capillary Refill : General Appearance: No Apparent Distress, WD/WN HEENT: Normal ENT Inspection Neck: Full Range of Motion, Normal Inspection Respiratory: Chest Non Tender, Lungs Clear, Normal Breath Sounds, No Accessory Muscle Use, No Respiratory Distress Cardiovascular: Regular Rate, Rhythm, No Murmur Gastrointestinal: non tender, soft Results Lab Laboratory Tests 04/21/17 05:31: White Blood Count 10.4, Red Blood Count 4.17L, Hemoglobin 11.5L, Hematocrit 39L , Mean Corpuscular Volume 93, Mean Corpuscular Hemoglobin 28, Mean Corpuscular Hemoglobin Concent 30L, Red Cell Distribution Width 14.5, Platelet Count 275, Mean Platelet Volume 10.3, Sodium Level 139, Potassium Level 4.8, Chloride Level 97L, Carbon Dioxide Level 34H, Anion Gap 8, Blood Urea Nitrogen 25H, Creatinine 0.96, Estimat Glomerular Filtration Rate > 60, BUN/Creatinine Ratio 26, Glucose Level 127H, Calcium Level 8.6 Microbiology 04/18/17 Throat Culture - Final, Complete No Beta Strep isolated Assessment/Plan Assessment/Plan Assess & Plan/Chief Complaint 04/18/17. Patient having a sore throat today. Patient having muscle cramps in legs. Patient put on Neurontin. Rapid strep screen ordered. . 04/19/17. Lumbar radiculopathy. Patient having no complaints. Strep screen negative. Patient on Lyrica does not need Neurontin. Patient states he is improving. . 04/20/17. Patient states he is improving. Patient doing better. Patient sees his own improvement. . 04/21/17 Lumbar radiculopathy. Patient needed antacid this morning. Patient feels he is doing better Clinical Quality Measures DVT/VTE Risk/Contraindication: Risk Factor Score Per Nursin RFS Level Per Nursing on Admit: 4+=Very High MILAD MULLER DO Apr 21, 2017 08:21
--- NOTE | 2017-04-21 08:42 | Occupational Ther Daily Note ---
OT Current Status-Daily Note Subjective No pain reported. Appearance Pt. in bed. Agrees to work with OT. Declines showering, but agrees to spongebathe. Mental Status/Objective Patient Orientation: Person, Place Functional [place] Measure 0=Not Assessed/NA 4=Minimal Assistance 1=Total Assistance 5=Supervision or Setup 2=Maximal Assistance 6=Modified [place] 3=Moderate Assistance 7=Complete [place] Attachments: Oxygen ADL-Treatment Functional [place] Measure 0=Not Assessed/NA 4=Minimal Assistance 1=Total Assistance 5=Supervision or Setup 2=Maximal Assistance 6=Modified [place] 3=Moderate Assistance 7=Complete IndependenceIRFPAI Quality Coding Scale 6 Independent with activity with or without an assistive device 5 Patient requires set up or clean up by helper. Patient completes activity by themselves 4 Supervision or touching assist (CGA). [place] provide cues , steadying assist 3 The helper provides less than half the effort to complete the activity 2 The helper provides more than half the effort to complete the activity 1 Dependent. The helper does all the effort to complete an activity 7 Patient refused to complete or attempt activity 9 The patient did not perform the activity before the current illness or injury 88 Not attempted due to Medical conditions or safety concerns Grooming (FIM): 5 (Set up to brush hair.) Bathing (FIM): 5 (Pt. is able to bathe all parts at bed level after set up.) Shower/Bathe Self (QC): 5 Upper Body (FIM): 5 Upper Body Dressing (QC): 5 Lower Body Dressing (FIM): 5 (Pt. is able to don underwear, pants, and socks at bed level after set up.) Lower Body Dressing (QC): 5 On/Off Footwear (QC): 5 Toileting (FIM): 5 (Set up to use urinal.) Toileting Hygiene (QC): 5 Pt. is able to bathe and complete full dressing task at bed level this morning. Tolerated treatment well and improved in time needed as well. Education OT Patient Education: Correct positioning, Modified ADL techniques, Progress toward Goal/Update tx plan, Purpose of tx/functional activities, Reviewed precautions, Rehab process, Transfer techniques Teaching Recipient: Patient Teaching Methods: Demonstration, Discussion Response to Teaching: Verbalize Understanding, Return Demonstration OT Short Term Goals Short Term Goals Time Frame: Apr 26, 2017 Lower Body Dressing(FIM): 4 Toilet/Commode Transfer(FIM): 3 Shower Transfer(FIM): 3 Additional Short Term Goals: 2-Verbalize Understanding, 3-ImproveStrength/Carolyn 1=Demonstrate adherence to instructed precautions during ADL tasks. 2=Patient will verbalize/demonstrate understanding of assistive devices/ modifications for ADL. 3=Patient will improve strength/tolerance for activity to enable patient to perform ADL's. OT Alf Goals Computerized Table Cutter Goals Time Frame: May 10, 2017 Eating (FIM): 7 Eating (QC): 7 Groomin Oral Hygiene (QC): 6 Bathing(FIM): 5 Shower/Bathe Self (QC): 5 Upper Body Dressing(FIM): 6 Upper Body Dressing (QC): 6 Lower Body Dressing(FIM): 6 Lower Body Dressing (QC): 6 On/Off Footwear (QC): 6 Toileting(FIM): 6 Toileting Hygiene (QC): 6 Toilet/Commode Transfer(FIM): 6 Toilet/Commode Transfer (QC): 6 Shower Transfer(FIM): 6 Additional Goals: 2-Verbalize Understanding, 3-ImproveStrength/Carolyn 1=Demonstrate adherence to instructed precautions during ADL tasks. 2=Patient will verbalize/demonstrate understanding of assistive devices/ modifications for ADL. 3=Patient will improve strength/tolerance for activity to enable patient to perform ADL's. OT Education/Plan Problem List/Assessment Assessment: Decreased Activ Tolerance, Dependent Transfers, Impaired I ADL's, Impaired Self-Care Skills Pt would benefit from skilled OT to increase his independence in basic self care to allow him to safely return to his home to live as independently as possible and to decrease caregiver burden. Discharge Recommendations Plan/Recommendations: Continue POC Therapy D/C Recommendations: Assisted Living Treatment Plan/Plan of Care Treatment,Training & Education: Yes Patient would benefit from OT for education, treatment and training to promote independence in ADL's, mobility, safety and/or upper extremity function for ADL' s. Plan of Care: ADL Retraining, Functional Mobility, Group Exercise/Act as Ind ( education, exercise, mobility, functional activities, socialization), UE Neuromus Re-Ed/Coord Treatment Duration: May 10, 2017 Visits Per Week: 10-11 Minutes/Day (M-F): 75-90 Minutes/Day (Sat/Adame): PRN Agreement: Yes Rehab Potential: Fair Time/GCodes Start Time: 07:40 Stop Time: 08:40 Total Time Billed (hr/min): 60 Billed Treatment Time 1, ADL x 4 SYLVESTER CISNEROS OT Apr 21, 2017 08:42
[2017-04-21] MEDS: FUROSEMIDE 20 MG (LASIX) TAB PO SCH (08:53)
[2017-04-21] MEDS: meTOprolol TARTRATE 25 MG (LOPRESSOR) TABLET PO SCH ×2 (08:53→20:28)
[2017-04-21] MEDS: DOCUSATE SODIUM 100 MG (COLACE) CAP PO SCH ×2 (08:53→20:28)
[2017-04-21] MEDS: PREGABALIN 75 MG (LYRICA) CAP PO SCH ×2 (08:53→20:28)
[2017-04-21] MEDS: ASPIRIN E.C. 81 MG (ECOTRIN) TAB PO SCH (08:53)
[2017-04-21] MEDS: FAMOTIDINE 20 MG (PEPCID) TABLET PO SCH (08:53)
[2017-04-21] MEDS: clonazePAM 0.5 MG (KlonoPIN) TAB PO SCH ×4 (08:53→12:07)
[2017-04-21] MEDS: RT-ADVAIR HFA 115/21 MCG PER PUFF IH SCH ×2 (10:12→19:57)
--- NOTE | 2017-04-21 12:58 | Physical Therapy Daily Note ---
PT Daily Note-Current Subjective Pt laying Supine in bed upon arrival. Pt reports discharging Tuesday (04/25/17) and agrees to PT. Pain Numeric Pain Scale: 10-Worst Possible Pain Location: Left Location Body Site: Calf Pain Description: Cramping Mental Status Patient Orientation: Person, Place, Time, Situation Transfers Functional [place] Measure 0=Not Assessed/NA 4=Minimal Assistance 1=Total Assistance 5=Supervision or Setup 2=Maximal Assistance 6=Modified [place] 3=Moderate Assistance 7=Complete IndependenceIRFPAI Quality Coding Scale 6 Independent with activity with or without an assistive device 5 Patient requires set up or clean up by helper. Patient completes activity by themselves 4 Supervision or touching assist (CGA). [place] provide cues , steadying assist 3 The helper provides less than half the effort to complete the activity 2 The helper provides more than half the effort to complete the activity 1 Dependent. The helper does all the effort to complete an activity 7 Patient refused to complete or attempt activity 9 The patient did not perform the activity before the current illness or injury 88 Not attempted due to Medical conditions or safety concerns Scootin Rollin Roll Left to Right (QC): 5 Supine to/from Sit: 5 Sit to/from Stand: 5 Sit to Lying (QC): 5 Sit to Stand (QC): 5 Chair/Flu-dg-Rsdkd Xfer(QC): 5 Bed to/from Chair: 5 Wheelchair Training Does the Pt Use a Wheelchair?: Yes Distance: 100' Wheelchair Level of Assist: 5 Wheel 50 ft with 2 turns (QC): 5 Type of Wheelchair: Motorized Treatments Pt worked on rolling and transfers from Supine to EOB then transferred from EOB to [facility] via Slide board. Pt propelled [facility] to Therapy Gym to practice Slide board transfers on Therapy Mat w/o having bed rails to assist. Pt then returned to [facility] and returned to room to rest. Pt transferred back to bed to lay Supine at end of tx with all needs met. Assessment Current Status: Fair Progress Pt has continued to make progress with independence of Slide Board transfers but lacks strength for standing. PT Short Term Goals Short Term Goals Time Frame: Apr 19, 2017 Wheelchair (FIM): 5 Wheelchair distance (FIM): 3=150 ft Wheelchair Distance: 150' Wheelchair Level of Assist: 5 PT [employer] Worker Goals Senior Care Goals PT Senior Care Goals Time Frame: May 10, 2017 Transfers (B,C,W/C) (FIM): 5 Sit to Lying (QC): 5 Lying-Sitting on Side/Bed(QC): 5 Sit to Stand (QC): 9 Rollin Roll Left to Right (QC): 5 Chair/Zal-eg-Trkjf Xfer(QC): 5 Car Transfer (QC): 9 Does the Patient Walk: No and Walking Goal NOT indicated Does the Pt use WC or Scooter?: Yes Wheelchair (FIM): 5 Wheelchair distance (FIM): 3=150 ft Distance: 300' Wheelchair Level of Assist: 5 Wheel 50 feet with 2 turns (QC: 5 1 Step (curb) (QC): 9 4 Steps (QC): 9 12 Steps (QC): 9 Picking up an Object (QC): 4 PT Plan Problem List Problem List: Activity Tolerance, Functional Strength, Safety, Balance, Gait Treatment/Plan Treatment Plan: Continue Plan of Care Treatment Plan: Bed Mobility, Education, Functional Activity Carolyn, Functional Strength, Group Therapy, Safety, Therapeutic Exercise, Transfers Treatment Duration: May 10, 2017 Visits Per Week: 11 Minutes/Day (M-F): 60-90 Minutes/Day (Sat/Adame): PRN Safety Risks/Education Patient Education: Transfer Techniques, Correct Positioning, Safety Issues Teaching Recipient: Patient Teaching Methods: Discussion Response to Teaching: Verbalize Understanding Time/GCodes Time In: 915 Time Out: 1015 Total Billed Treatment Time: 60 Total Billed Treatment visit, [facility] (15m) & FA x3 (45m) MEGHANA FERNÁNDEZ PTA Apr 21, 2017 12:57
--- NOTE | 2017-04-21 16:16 | Therapy Group Daily Note ---
Therapy Daily Group Note Exercises UE Exercise Other/Notes Pt transferred to [facility] via Slide Board and propelled [facility] to PT/OT Group in Therapy Commons. Group consisted of Introductions (Name, Where you are from and Childhood Memory), Socialization, Activities focused on Problem Solving, Memory, Sequencing, UE reaching and grasping, Core Strengthening while sitting and Fine Motor. Pt actively participated in Group by participating in activity by Exercising as needed for task and Socializing with other patients during task. Pt needed redirection about appropriateness of VC during activity and Introductions. Pt returned to room to rest in bed with all needs met at end of tx. Start Time: 13:00 Stop Time: 14:10 Total Billed Treatment Time: 70 Total Billed Treatment 1,GRP MEGHANA FERNÁNDEZ GUN STOCKER Apr 21, 2017 16:16
[2017-04-21 19:00] VITALS: BP 116/64
[2017-04-21] MEDS: clonazePAM 1 MG (KlonoPIN) TAB PO SCH (20:28)
[2017-04-21] MEDS: ATORVASTATIN 40 MG (LIPITOR) TABLET PO SCH (20:29)
[2017-04-22] MEDS: oxyCODONE/APAP 10/325MG (PERCOCET 10) TABLET PO PRN ×5 (04:28→23:14)
[2017-04-22 05:14] VITALS: BP 119/77
[2017-04-22] MEDS: KCL 10 MEQ TAB (MICRO K) PO SCH (05:59)
[2017-04-22] MEDS: predniSONE 20 MG TAB PO SCH (05:59)
[2017-04-22] MEDS: LEVOTHYROXINE 150 MCG (LEVOTHROID) TAB PO SCH (05:59)
[2017-04-22] MEDS: metFORMIN 500 MG (GLUCOPHAGE) TAB PO SCH ×2 (05:59→16:51)
[2017-04-22] MEDS: FAMOTIDINE 20 MG (PEPCID) TABLET PO SCH (08:01)
[2017-04-22] MEDS: DOCUSATE SODIUM 100 MG (COLACE) CAP PO SCH ×2 (08:01→20:32)
[2017-04-22] MEDS: clonazePAM 0.5 MG (KlonoPIN) TAB PO SCH ×4 (08:01→12:09)
[2017-04-22] MEDS: ASPIRIN E.C. 81 MG (ECOTRIN) TAB PO SCH (08:01)
[2017-04-22] MEDS: meTOprolol TARTRATE 25 MG (LOPRESSOR) TABLET PO SCH ×2 (08:01→20:33)
[2017-04-22] MEDS: PREGABALIN 75 MG (LYRICA) CAP PO SCH ×2 (08:01→20:32)
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
[2017-04-22] MEDS ORDERED: DOCU100C37 PO (08:14)
[2017-04-22] MEDS ORDERED: PRD20T PO (08:14)
--- NOTE | 2017-04-22 08:23 | Progress Note (SOAP) ---
Subjective Time Seen by Provider: 07:45 Subjective/Events-last exam patient feeling better. Patient to be discharged Tuesday. Patient felt he has improved. Lumbar radiculopathy Objective Exam Vital Signs Date Time Temp Pulse Resp B/P (MAP) Pulse Ox O2 Delivery O2 Flow Rate FiO2 04/22/17 07:28 2.50 04/22/17 05:14 97.5 56 18 119/77 92 2.50 04/21/17 20:20 2.50 04/21/17 19:57 94 2.50 04/21/17 19:00 98.3 74 14 116/64 95 2.50 04/21/17 10:12 93 3.00 I & O 04/22/17 07:00 Intake Total 2210 ml Output Total 2575 ml Balance -365 ml Capillary Refill : General Appearance: No Apparent Distress, WD/WN HEENT: Normal ENT Inspection Neck: Full Range of Motion, Normal Inspection Results Lab Microbiology 04/18/17 Throat Culture - Final, Complete No Beta Strep isolated Assessment/Plan Assessment/Plan Assess & Plan/Chief Complaint 04/18/17. Patient having a sore throat today. Patient having muscle cramps in legs. Patient put on Neurontin. Rapid strep screen ordered. . 04/19/17. Lumbar radiculopathy. Patient having no complaints. Strep screen negative. Patient on Lyrica does not need Neurontin. Patient states he is improving. . 04/20/17. Patient states he is improving. Patient doing better. Patient sees his own improvement. . 04/21/17 Lumbar radiculopathy. Patient needed antacid this morning. Patient feels he is doing better. . 04/22/17. Lumbar radiculopathy. Patient be discharged to Tuesday. Patient voices no complaints Clinical Quality Measures DVT/VTE Risk/Contraindication: Risk Factor Score Per Nursin RFS Level Per Nursing on Admit: 4+=Very High MILAD MULLER DO Apr 22, 2017 08:23
[2017-04-22] MEDS: RT-ADVAIR HFA 115/21 MCG PER PUFF IH SCH ×2 (08:31→19:22)
[2017-04-22] MEDS: FUROSEMIDE 20 MG (LASIX) TAB PO SCH (08:34)
--- NOTE | 2017-04-22 09:38 | Occupational Ther Daily Note ---
OT Current Status-Daily Note Subjective No pain reported. Appearance Pt. declines again showering. Does agree that he will shower before he goes home. Requests to spongebathe. Mental Status/Objective Patient Orientation: Person, Place, Time, Situation Functional Lane Measure 0=Not Assessed/NA 4=Minimal Assistance 1=Total Assistance 5=Supervision or Setup 2=Maximal Assistance 6=Modified Lane 3=Moderate Assistance 7=Complete Lane Attachments: IV, Oxygen ADL-Treatment Functional Lane Measure 0=Not Assessed/NA 4=Minimal Assistance 1=Total Assistance 5=Supervision or Setup 2=Maximal Assistance 6=Modified Lane 3=Moderate Assistance 7=Complete IndependenceIRFPAI Quality Coding Scale 6 Independent with activity with or without an assistive device 5 Patient requires set up or clean up by helper. Patient completes activity by themselves 4 Supervision or touching assist (CGA). [place] provide cues , steadying assist 3 The helper provides less than half the effort to complete the activity 2 The helper provides more than half the effort to complete the activity 1 Dependent. The helper does all the effort to complete an activity 7 Patient refused to complete or attempt activity 9 The patient did not perform the activity before the current illness or injury 88 Not attempted due to Medical conditions or safety concerns Grooming (FIM): 5 (set up) Bathing (FIM): 5 (set up at bed level.) Shower/Bathe Self (QC): 5 Upper Body (FIM): 5 (set up at bed level.) Upper Body Dressing (QC): 5 Lower Body Dressing (FIM): 5 Lower Body Dressing (QC): 5 On/Off Footwear (QC): 5 Toileting (FIM): 5 (For toileting only using a urinal.) Toileting Hygiene (QC): 5 Education OT Patient Education: Correct positioning, Modified ADL techniques, Progress toward Goal/Update tx plan, Purpose of tx/functional activities, Reviewed precautions, Rehab process, Transfer techniques Teaching Recipient: Patient Teaching Methods: Demonstration, Discussion Response to Teaching: Verbalize Understanding, Return Demonstration OT Short Term Goals Short Term Goals Time Frame: Apr 26, 2017 Lower Body Dressing(FIM): 4 Toilet/Commode Transfer(FIM): 3 Shower Transfer(FIM): 3 Additional Short Term Goals: 2-Verbalize Understanding, 3-ImproveStrength/Carolyn 1=Demonstrate adherence to instructed precautions during ADL tasks. 2=Patient will verbalize/demonstrate understanding of assistive devices/ modifications for ADL. 3=Patient will improve strength/tolerance for activity to enable patient to perform ADL's. OT Skilled Nursing Goals Highway Painter Goals Time Frame: May 10, 2017 Eating (FIM): 7 Eating (QC): 7 Groomin Oral Hygiene (QC): 6 Bathing(FIM): 5 Shower/Bathe Self (QC): 5 Upper Body Dressing(FIM): 6 Upper Body Dressing (QC): 6 Lower Body Dressing(FIM): 6 Lower Body Dressing (QC): 6 On/Off Footwear (QC): 6 Toileting(FIM): 6 Toileting Hygiene (QC): 6 Toilet/Commode Transfer(FIM): 6 Toilet/Commode Transfer (QC): 6 Shower Transfer(FIM): 6 Additional Goals: 2-Verbalize Understanding, 3-ImproveStrength/Carolyn 1=Demonstrate adherence to instructed precautions during ADL tasks. 2=Patient will verbalize/demonstrate understanding of assistive devices/ modifications for ADL. 3=Patient will improve strength/tolerance for activity to enable patient to perform ADL's. OT Education/Plan Problem List/Assessment Assessment: Decreased Activ Tolerance, Impaired I ADL's, Impaired Self-Care Skills Pt would benefit from skilled OT to increase his independence in basic self care to allow him to safely return to his home to live as independently as possible and to decrease caregiver burden. Discharge Recommendations Plan/Recommendations: Continue POC Therapy D/C Recommendations: Assisted Living Treatment Plan/Plan of Care Treatment,Training & Education: Yes Patient would benefit from OT for education, treatment and training to promote independence in ADL's, mobility, safety and/or upper extremity function for ADL' s. Plan of Care: ADL Retraining, Functional Mobility, Group Exercise/Act as Ind ( education, exercise, mobility, functional activities, socialization), UE Neuromus Re-Ed/Coord Treatment Duration: May 10, 2017 Visits Per Week: 10-11 Minutes/Day (M-F): 75-90 Minutes/Day (Sat/Adame): PRN Agreement: Yes Rehab Potential: Fair Time/GCodes Start Time: 07:45 Stop Time: 08:45 Total Time Billed (hr/min): 60 Billed Treatment Time 1, ADL x 4 SYLVESTER CISNEROS OT Apr 22, 2017 09:38
--- NOTE | 2017-04-22 09:59 | Physical Therapy Daily Note ---
PT Daily Note-Current Subjective Patient in bed pre tx, agrees to PT, no complaints of pain. Appearance Patient in wheelchair post tx. He is mod I with power chair mobility, his O2 tank needs changed, notified PT tech to do that. Mental Status Patient Orientation: Normal For Age Attachments: Oxygen Transfers Functional [place] Measure 0=Not Assessed/NA 4=Minimal Assistance 1=Total Assistance 5=Supervision or Setup 2=Maximal Assistance 6=Modified [place] 3=Moderate Assistance 7=Complete IndependenceIRFPAI Quality Coding Scale 6 Independent with activity with or without an assistive device 5 Patient requires set up or clean up by helper. Patient completes activity by themselves 4 Supervision or touching assist (CGA). [place] provide cues , steadying assist 3 The helper provides less than half the effort to complete the activity 2 The helper provides more than half the effort to complete the activity 1 Dependent. The helper does all the effort to complete an activity 7 Patient refused to complete or attempt activity 9 The patient did not perform the activity before the current illness or injury 88 Not attempted due to Medical conditions or safety concerns Transfers (B, C, W/C) (FIM): 4 Scootin Rollin Supine to/from Sit: 5 Bed to/from Chair: 4 Patient was able to perform a sliding board transfer to the right with min assist. Wheelchair Training Does the Pt Use a Wheelchair?: Yes Wheelchair (FIM): 6 Distance: 5000' Type of Wheelchair: Motorized Patient was able to go over community surfaces (ramps, sidewalks, slightly uneven surfaces) with mod I. Exercises sit to cut roll machine operator parallel bars x5 with min/mod A, LAQ right side for 5 min Treatments bed mobility and transfers, wheelchair mobility, functional strengthening Assessment Current Status: Fair Progress improved transfers and overall strength PT Short Term Goals Short Term Goals Time Frame: Apr 19, 2017 Wheelchair (FIM): 5 Wheelchair distance (FIM): 3=150 ft Wheelchair Distance: 100' Wheelchair Level of Assist: 5 PT Milling Machine Set Up Operator Goals Senior Care Goals PT Senior Care Goals Time Frame: May 10, 2017 Transfers (B,C,W/C) (FIM): 5 Sit to Lying (QC): 5 Lying-Sitting on Side/Bed(QC): 5 Sit to Stand (QC): 9 Rollin Roll Left to Right (QC): 5 Chair/Fmi-fg-Jpfbh Xfer(QC): 5 Car Transfer (QC): 9 Does the Patient Walk: No and Walking Goal NOT indicated Does the Pt use WC or Scooter?: Yes Wheelchair (FIM): 5 Wheelchair distance (FIM): 3=150 ft Distance: 300' Wheelchair Level of Assist: 5 Wheel 50 feet with 2 turns (QC: 5 1 Step (curb) (QC): 9 4 Steps (QC): 9 12 Steps (QC): 9 Picking up an Object (QC): 4 PT Plan Problem List Problem List: Activity Tolerance, Functional Strength, Safety, Balance, Gait, Transfer, Bed Mobility Treatment/Plan Treatment Plan: Continue Plan of Care Treatment Plan: Bed Mobility, Education, Functional Activity Carolyn, Functional Strength, Group Therapy, Safety, Therapeutic Exercise, Transfers Treatment Duration: May 10, 2017 Visits Per Week: 11 Minutes/Day (M-F): 60-90 Minutes/Day (Sat/Adame): PRN Safety Risks/Education Patient Education: Transfer Techniques, Correct Positioning, W/C Management, Safety Issues Teaching Recipient: Patient Teaching Methods: Demonstration, Discussion Response to Teaching: Reinforcement Needed Time/GCodes Time In: 900 Time Out: 1000 Total Billed Treatment Time: 60 Total Billed Treatment [address] [facility] 30' EX 15' FA 15' ADA CARRILLO PT Apr 22, 2017 09:59
--- NOTE | 2017-04-22 13:44 | Therapy Group Daily Note ---
Therapy Daily Group Note Patient Education Topic Other List Below (Home Safety) Exercises Fine Motor, UE Exercise Other/Notes Pt transferred from bed with w/c with SBA. Pt transported self in w/c to BUSINESS SOLUTIONS ANALYST/OT group in motorized w/c. Pt gathered in [facility] to eat lunch together. Pt's discussed home safety in the kitchen. Topics were of safety awareness while using kitchen appliances, food preparations, kitchen utensils and problem solving safety issues. Pt contributed to discussions appropriately and demonstrated understanding of all areas discussed. Pt was able to complete own set up for lunch then use regular utensils to cook food and feed self. After therapy, pt lying in bed with call light/phone in reach. All needs met in room. Start Time: 11:50 Stop Time: 12:00 Total Billed Treatment Time: 70 Total Billed Treatment 1-GRP LELE LOZA Apr 22, 2017 13:44
[2017-04-22 17:45] VITALS: BP 139/76
[2017-04-22] MEDS: clonazePAM 1 MG (KlonoPIN) TAB PO SCH (20:33)
[2017-04-22] MEDS: ATORVASTATIN 40 MG (LIPITOR) TABLET PO SCH (20:33)
[2017-04-23] MEDS: oxyCODONE/APAP 10/325MG (PERCOCET 10) TABLET PO PRN ×3 (04:13→17:30)
[2017-04-23] MEDS: metFORMIN 500 MG (GLUCOPHAGE) TAB PO SCH ×2 (06:14→17:28)
[2017-04-23] MEDS: KCL 10 MEQ TAB (MICRO K) PO SCH (06:14)
[2017-04-23] MEDS: predniSONE 20 MG TAB PO SCH (06:14)
[2017-04-23] MEDS: LEVOTHYROXINE 150 MCG (LEVOTHROID) TAB PO SCH (06:14)
[2017-04-23 06:16] VITALS: BP 108/65
[2017-04-23] MEDS: RT-ADVAIR HFA 115/21 MCG PER PUFF IH SCH ×2 (07:23→19:14)
[2017-04-23] MEDS: clonazePAM 0.5 MG (KlonoPIN) TAB PO SCH ×4 (08:54→13:36)
[2017-04-23] MEDS: FUROSEMIDE 20 MG (LASIX) TAB PO SCH (08:55)
[2017-04-23] MEDS: meTOprolol TARTRATE 25 MG (LOPRESSOR) TABLET PO SCH ×2 (08:55→20:24)
[2017-04-23] MEDS: DOCUSATE SODIUM 100 MG (COLACE) CAP PO SCH ×2 (08:55→20:24)
[2017-04-23] MEDS: PREGABALIN 75 MG (LYRICA) CAP PO SCH ×2 (08:55→20:24)
[2017-04-23] MEDS: ASPIRIN E.C. 81 MG (ECOTRIN) TAB PO SCH (08:55)
[2017-04-23] MEDS: FAMOTIDINE 20 MG (PEPCID) TABLET PO SCH (08:55)
--- NOTE | 2017-04-23 13:18 | Physical Therapy Daily Note ---
PT Daily Note-Current Subjective Pt. declines Rx when invited x2. Pt. states he is leaving Mon, is too tired today and has pain in his legs. This AEROSOL SUPERVISOR again inviting him to TRF out of bed and or do LE therex in bed. Educated pt on importance of preventing other problems by being as active as possible. Pt. inquires as to whether he will get a slide board for DC. This AEROSOL SUPERVISOR responding that I will look in to his DC plans for equipment needs Pain Numeric Pain Scale: 6 Location: Left Location Body Site: Thigh Pain Description: Throbbing Mental Status Patient Orientation: Normal For Age Attachments: Oxygen Transfers Functional [place] Measure 0=Not Assessed/NA 4=Minimal Assistance 1=Total Assistance 5=Supervision or Setup 2=Maximal Assistance 6=Modified [place] 3=Moderate Assistance 7=Complete IndependenceIRFPAI Quality Coding Scale 6 Independent with activity with or without an assistive device 5 Patient requires set up or clean up by helper. Patient completes activity by themselves 4 Supervision or touching assist (CGA). [place] provide cues , steadying assist 3 The helper provides less than half the effort to complete the activity 2 The helper provides more than half the effort to complete the activity 1 Dependent. The helper does all the effort to complete an activity 7 Patient refused to complete or attempt activity 9 The patient did not perform the activity before the current illness or injury 88 Not attempted due to Medical conditions or safety concerns Assessment Current Status: Fair Progress unmotivated PT Short Term Goals Short Term Goals Time Frame: Apr 19, 2017 Wheelchair (FIM): 5 Wheelchair distance (FIM): 3=150 ft Wheelchair Distance: 5000' Wheelchair Level of Assist: 5 PT Technical Fellow Goals Senior Living Goals PT Senior Living Goals Time Frame: May 10, 2017 Transfers (B,C,W/C) (FIM): 5 Sit to Lying (QC): 5 Lying-Sitting on Side/Bed(QC): 5 Sit to Stand (QC): 9 Rollin Roll Left to Right (QC): 5 Chair/Tid-nn-Jpqpd Xfer(QC): 5 Car Transfer (QC): 9 Does the Patient Walk: No and Walking Goal NOT indicated Does the Pt use WC or Scooter?: Yes Wheelchair (FIM): 5 Wheelchair distance (FIM): 3=150 ft Distance: 300' Wheelchair Level of Assist: 5 Wheel 50 feet with 2 turns (QC: 5 1 Step (curb) (QC): 9 4 Steps (QC): 9 12 Steps (QC): 9 Picking up an Object (QC): 4 PT Plan Problem List Problem List: Safety, Transfer, Other (poor motivation) Treatment/Plan Treatment Plan: Continue Plan of Care Treatment Plan: Bed Mobility, Education, Functional Activity Carolyn, Functional Strength, Group Therapy, Safety, Therapeutic Exercise, Transfers Treatment Duration: May 10, 2017 Visits Per Week: 11 Minutes/Day (M-F): 60-90 Minutes/Day (Sat/Adame): PRN Time/GCodes Time In: 1200 Time Out: 1210 Total Billed Treatment Time: 10 Total Billed Treatment 1, 1:1 educ G Codes Necessary: No MAYCO WILSON AEROSOL SUPERVISOR Apr 23, 2017 13:18
[2017-04-23 18:20] VITALS: BP 101/64
[2017-04-23] MEDS: ATORVASTATIN 40 MG (LIPITOR) TABLET PO SCH (20:23)
[2017-04-23] MEDS: clonazePAM 1 MG (KlonoPIN) TAB PO SCH (20:24)
[2017-04-24] MEDS: oxyCODONE/APAP 10/325MG (PERCOCET 10) TABLET PO PRN ×4 (02:32→20:04)
[2017-04-24 05:27] VITALS: BP 114/69
[2017-04-24] MEDS: predniSONE 20 MG TAB PO SCH (06:10)
[2017-04-24] MEDS: KCL 10 MEQ TAB (MICRO K) PO SCH (06:10)
[2017-04-24] MEDS: metFORMIN 500 MG (GLUCOPHAGE) TAB PO SCH ×2 (06:10→15:57)
[2017-04-24] MEDS: LEVOTHYROXINE 150 MCG (LEVOTHROID) TAB PO SCH (06:10)
[2017-04-24] MEDS: RT-ADVAIR HFA 115/21 MCG PER PUFF IH SCH ×2 (08:17→19:26)
[2017-04-24] MEDS: clonazePAM 0.5 MG (KlonoPIN) TAB PO SCH ×4 (09:25→13:41)
[2017-04-24] MEDS: FAMOTIDINE 20 MG (PEPCID) TABLET PO SCH (09:26)
[2017-04-24] MEDS: meTOprolol TARTRATE 25 MG (LOPRESSOR) TABLET PO SCH ×2 (09:26→20:06)
[2017-04-24] MEDS: ASPIRIN E.C. 81 MG (ECOTRIN) TAB PO SCH (09:26)
[2017-04-24] MEDS: PREGABALIN 75 MG (LYRICA) CAP PO SCH ×2 (09:26→20:07)
[2017-04-24] MEDS: DOCUSATE SODIUM 100 MG (COLACE) CAP PO SCH ×2 (09:26→20:06)
[2017-04-24] MEDS: FUROSEMIDE 20 MG (LASIX) TAB PO SCH (09:26)
[2017-04-24] MEDS: BACLOFEN 10 MG (LIORESAL) TAB PO PRN (09:27)
[2017-04-24 18:05] VITALS: BP 118/60
[2017-04-24] MEDS: ATORVASTATIN 40 MG (LIPITOR) TABLET PO SCH (20:06)
[2017-04-24] MEDS: clonazePAM 1 MG (KlonoPIN) TAB PO SCH (20:06)
[2017-04-25] MEDS: oxyCODONE/APAP 10/325MG (PERCOCET 10) TABLET PO PRN ×2 (01:51→10:01)
[2017-04-25 05:06] VITALS: BP 128/51
[2017-04-25] MEDS: metFORMIN 500 MG (GLUCOPHAGE) TAB PO SCH (06:36)
[2017-04-25] MEDS: KCL 10 MEQ TAB (MICRO K) PO SCH (06:36)
[2017-04-25] MEDS: LEVOTHYROXINE 150 MCG (LEVOTHROID) TAB PO SCH (06:36)
[2017-04-25] MEDS: predniSONE 20 MG TAB PO SCH (06:36)
[2017-04-25] MEDS: RT-ADVAIR HFA 115/21 MCG PER PUFF IH SCH (06:42)
[2017-04-25] MEDS: PREGABALIN 75 MG (LYRICA) CAP PO SCH (08:04)
[2017-04-25] MEDS: ASPIRIN E.C. 81 MG (ECOTRIN) TAB PO SCH (08:04)
[2017-04-25] MEDS: FAMOTIDINE 20 MG (PEPCID) TABLET PO SCH (08:04)
[2017-04-25] MEDS: DOCUSATE SODIUM 100 MG (COLACE) CAP PO SCH (08:05)
[2017-04-25] MEDS: clonazePAM 0.5 MG (KlonoPIN) TAB PO SCH ×2 (08:05)
[2017-04-25] MEDS: FUROSEMIDE 20 MG (LASIX) TAB PO SCH (08:05)
[2017-04-25] MEDS: meTOprolol TARTRATE 25 MG (LOPRESSOR) TABLET PO SCH (08:05)
--- NOTE | 2017-04-25 08:57 | Progress Note (SOAP) ---
Subjective Time Seen by Provider: 08:50 Subjective/Events-last exam lumbar radiculopathy. Patient going home today. Objective Exam Vital Signs Date Time Temp Pulse Resp B/P (MAP) Pulse Ox O2 Delivery O2 Flow Rate FiO2 04/25/17 08:00 Nasal Cannula 2.50 04/25/17 06:42 83 Room Air 04/25/17 05:06 98.0 66 18 128/51 94 Nasal Cannula 2.50 04/24/17 20:27 Nasal Cannula 2.50 04/24/17 19:26 93 Nasal Cannula 3.00 04/24/17 18:05 98.0 68 18 118/60 94 Nasal Cannula 2.50 I & O 04/25/17 07:00 Intake Total 1340 ml Output Total 1300 ml Balance 40 ml Capillary Refill : General Appearance: No Apparent Distress, WD/WN Results Lab Microbiology 04/18/17 Throat Culture - Final, Complete No Beta Strep isolated Assessment/Plan Assessment/Plan Assess & Plan/Chief Complaint 04/18/17. Patient having a sore throat today. Patient having muscle cramps in legs. Patient put on Neurontin. Rapid strep screen ordered. . 04/19/17. Lumbar radiculopathy. Patient having no complaints. Strep screen negative. Patient on Lyrica does not need Neurontin. Patient states he is improving. . 04/20/17. Patient states he is improving. Patient doing better. Patient sees his own improvement. . 04/21/17 Lumbar radiculopathy. Patient needed antacid this morning. Patient feels he is doing better. . 04/22/17. Lumbar radiculopathy. Patient be discharged to Tuesday. Patient voices no complaints. . 04/25/17. Lumbar radiculopathy. Patient be discharged today.. Patient ready for discharge Clinical Quality Measures DVT/VTE Risk/Contraindication: Risk Factor Score Per Nursin RFS Level Per Nursing on Admit: 4+=Very High MILAD MULLER DO Apr 25, 2017 08:57
--- NOTE | 2017-04-25 09:36 | Physical Therapy Daily Note ---
PT Daily Note-Current Subjective Patient in bed pre tx, agrees to PT, has 7/10 pain in his leg. Patient will be discharging from this facility today. Appearance Patient in power chair post tx with nurse call, has OT at 1000 Mental Status Patient Orientation: Normal For Age Attachments: Oxygen 3L of O2 nasal canula. Transfers Functional [place] Measure 0=Not Assessed/NA 4=Minimal Assistance 1=Total Assistance 5=Supervision or Setup 2=Maximal Assistance 6=Modified [place] 3=Moderate Assistance 7=Complete IndependenceIRFPAI Quality Coding Scale 6 Independent with activity with or without an assistive device 5 Patient requires set up or clean up by helper. Patient completes activity by themselves 4 Supervision or touching assist (CGA). [place] provide cues , steadying assist 3 The helper provides less than half the effort to complete the activity 2 The helper provides more than half the effort to complete the activity 1 Dependent. The helper does all the effort to complete an activity 7 Patient refused to complete or attempt activity 9 The patient did not perform the activity before the current illness or injury 88 Not attempted due to Medical conditions or safety concerns Transfers (B, C, W/C) (FIM): 4 Scootin Rollin Roll Left to Right (QC): 6 Supine to/from Sit: 6 Sit to/from Stand: 2 Sit to Lying (QC): 6 Sit to Stand (QC): 2 Chair/Mmb-ii-Ojnhh Xfer(QC): 3 Bed to/from Chair: 4 Patient performs bed mobility with mod I, transfers using a sliding board with min assist and performs a stand pivot transfer with max assist. Gait Training Does the Patient Walk?: No and Walking Goal NOT indicated Wheelchair Training Does the Pt Use a Wheelchair?: Yes Wheelchair (FIM): 6 Distance: 2000' Wheel 50 ft with 2 turns (QC): 6 Wheel 150 ft (QC): 6 Type of Wheelchair: Motorized community surfaces, ramps, sidewalks Treatments bed mobility, transfers, wheelchair mobility, patient had to use the urinal too Assessment Current Status: Fair Progress improved overall mobility PT Short Term Goals Short Term Goals Time Frame: Apr 19, 2017 Wheelchair (FIM): 5 Wheelchair distance (FIM): 3=150 ft Wheelchair Distance: 5000' Wheelchair Level of Assist: 5 PT Director Of Elementary Education Goals Director Of Elementary Education Goals PT Director Of Elementary Education Goals Time Frame: May 10, 2017 Transfers (B,C,W/C) (FIM): 5 Sit to Lying (QC): 5 (met) Lying-Sitting on Side/Bed(QC): 5 (met) Sit to Stand (QC): 9 Rollin (met) Roll Left to Right (QC): 5 (met) Chair/Gjq-er-Caaiu Xfer(QC): 5 Car Transfer (QC): 9 Does the Patient Walk: No and Walking Goal NOT indicated Does the Pt use WC or Scooter?: Yes Wheelchair (FIM): 5 (met) Wheelchair distance (FIM): 3=150 ft Distance: 300' Wheelchair Level of Assist: 5 (met) Wheel 50 feet with 2 turns (QC: 5 (met) 1 Step (curb) (QC): 9 4 Steps (QC): 9 12 Steps (QC): 9 Picking up an Object (QC): 4 PT Plan Problem List Problem List: Activity Tolerance, Functional Strength, Safety, Balance, Gait, Transfer Treatment/Plan Treatment Plan: Continue Plan of Care Treatment Plan: Bed Mobility, Education, Functional Activity Carolyn, Functional Strength, Group Therapy, Safety, Therapeutic Exercise, Transfers Treatment Duration: May 10, 2017 Visits Per Week: 11 Minutes/Day (M-F): 60-90 Minutes/Day (Sat/Adame): PRN Safety Risks/Education Patient Education: Transfer Techniques, Correct Positioning, W/C Management, Safety Issues Teaching Recipient: Patient Teaching Methods: Demonstration, Discussion Response to Teaching: Reinforcement Needed Time/GCodes Time In: 900 Time Out: 930 Total Billed Treatment Time: 30 Total Billed Treatment 1 visit [facility] 10' FA 20' ADA CARRILLO PT Apr 25, 2017 09:36
--- NOTE | 2017-04-25 09:42 | Therapy Team Discharge Summary ---
Therapy Discharge Summary Discharge Recommendations Date of Discharge Therapy D/C Recommendations: Assisted Living Physical Therapy Patient came to rehab for radiculopathy and debility. Upon evaluation patient performed bed mobility with max to min assist, performed a sliding board transfer with max assist, and could propel a manual wheelchair 100' with CGA/ Kevin. Patient has been performing bed mobility and transfer training, wheelchair mobility training, functional strengthening, and education. Patient has made fair progress but did not meet his transfer goal. Now, patient performs bed mobility with mod I, performs a stand pivot transfer with max assist and a sliding board transfer with min assist, and is mod I with his power wheelchair . Patient is discharging from this facility today and will be discharged from PT at this time. PT Yard Pipe Grader Goals Correction Goals PT Correction Goals Time Frame: May 10, 2017 Transfers (B,C,W/C) (FIM): 5 Roll Left to Right (QC): 5 (met) Sit to Lying (QC): 5 (met) Lying-Sitting on Side/Bed(QC): 5 (met) Sit to Stand (QC): 9 Chair/Shz-or-Kygue Xfer(QC): 5 Car Transfer (QC): 9 Does the Patient Walk: No and Walking Goal NOT indicated Does the Pt use WC or Scooter?: Yes Wheelchair (FIM): 5 (met) Wheelchair distance (FIM): 3=150 ft Distance: 300' Wheelchair Level of Assist: 5 (met) Wheel 50 feet with 2 turns (QC: 5 (met) 1 Step (curb) (QC): 9 4 Steps (QC): 9 12 Steps (QC): 9 Picking up an Object (QC): 4 OT Correction Goals Correction Goals Time Frame: May 10, 2017 Eating (FIM): 7 Eating (QC): 7 Oral Hygiene (QC): 6 Grooming(FIM): 6 Bathing(FIM): 5 Shower/Bathe Self (QC): 5 Upper Body Dressing(FIM): 6 Upper Body Dressing (QC): 6 Lower Body Dressing(FIM): 6 Lower Body Dressing (QC): 6 On/Off Footwear (QC): 6 Toileting(FIM): 6 Toileting Hygiene (QC): 6 Toilet/Commode Transfer(FIM): 6 Toilet/Commode Transfer (QC): 6 Shower Transfer(FIM): 6 Additional Goals: 2-Verbalize Understanding, 3-ImproveStrength/Carolyn 1=Demonstrate adherence to instructed precautions during ADL tasks. 2=Patient will verbalize/demonstrate understanding of assistive devices/ modifications for ADL. 3=Patient will improve strength/tolerance for activity to enable patient to perform ADL's. ADA CARRILLO PT Apr 25, 2017 09:42
[2017-04-25] MEDS: CALCIUM CARBONATE 500 MG (TUMS) TAB.CHEW PO PRN (11:19)
--- NOTE | 2017-04-25 11:50 | Occupational Ther Daily Note ---
OT Current Status-Daily Note Subjective Pt seen in room today, up in power chair, agreeable to OT. No pain mentioned. Appearance Alert, cooperative. Mental Status/Objective Functional [place] Measure 0=Not Assessed/NA 4=Minimal Assistance 1=Total Assistance 5=Supervision or Setup 2=Maximal Assistance 6=Modified [place] 3=Moderate Assistance 7=Complete [place] ADL-Treatment O2 at 3L/min nc throughout tx. Pt agreed to shower this morning. Functional [place] Measure 0=Not Assessed/NA 4=Minimal Assistance 1=Total Assistance 5=Supervision or Setup 2=Maximal Assistance 6=Modified [place] 3=Moderate Assistance 7=Complete IndependenceIRFPAI Quality Coding Scale 6 Independent with activity with or without an assistive device 5 Patient requires set up or clean up by helper. Patient completes activity by themselves 4 Supervision or touching assist (CGA). [place] provide cues , steadying assist 3 The helper provides less than half the effort to complete the activity 2 The helper provides more than half the effort to complete the activity 1 Dependent. The helper does all the effort to complete an activity 7 Patient refused to complete or attempt activity 9 The patient did not perform the activity before the current illness or injury 88 Not attempted due to Medical conditions or safety concerns Eating (FIM): 7 (No dentures. No extra time needed. Able to order own food, open packages, cut food, feed self without assistive devices) Eating (QC): 6 Grooming (FIM): 5 (Setup to brush teeth, bed level. Can comb hair independently. Does not shave. Washed face and hands in shower. He could brush his teeth at a w/c level but difficult to get power chair into bathroom) Oral Hygiene (QC): 5 (setup) Bathing (FIM): 5 (Able to wash and dry all parts, setup, except back. Washed hair himself during shower. Shower bench, grab bars, hand held shower. long handled sponge to wash feet. Could turn water on/off himself. ) Shower/Bathe Self (QC): 5 (setup) Upper Body (FIM): 5 (Able to doff and don shirt with setup, in bed. ) Upper Body Dressing (QC): 5 Lower Body Dressing (FIM): 5 (Able to doff and don clothing with setup, in bed. Including slipper socks, underwear, slacks) Lower Body Dressing (QC): 5 On/Off Footwear (QC): 5 Toileting (FIM): 5 (Urinal only. Unable to empty urinal. managed clothing in bed. ) Toileting Hygiene (QC): 5 Toilet/Commode Transfer (FIM): 4 (Reported CGA to SBA to bariatric BSC with drop arm) Toilet Transfer (QC): 4 (Reported) Shower Transfer(FIM): 4 (Close supervision to CGA/min assist. Sliding board transfer to bariatric transfer tub bench from power chair. Takes extra time andhas difficulty finding hand holds) Pt had more difficulty transferring back to bed after shower. He stood at bedside for long enough to pull sliding board out from under him. He also had difficulty positioning power chair to transfer back into bed, pulling chair too far from bed. He stopped at midpoint and slid back into chair because he said it felt like the board was sliding off. With assistance, recalled to position chair on other side of bed and slide to his R side and was able to get chair positioned closer to 90 degrees to bed. After dressing, pt left up in bed, all needs met. Recommend home health OT to continue problem solving ADL transfers at [place]. Education OT Patient Education: Correct positioning, Modified ADL techniques, Progress toward Goal/Update tx plan, Safety issues, Transfer techniques, Use of adapted equipment Teaching Recipient: Patient Teaching Methods: Demonstration, Discussion Response to Teaching: Verbalize Understanding, Return Demonstration, Reinforcement Needed OT Short Term Goals Short Term Goals Time Frame: Apr 26, 2017 Lower Body Dressing(FIM): 4 (met) Toilet/Commode Transfer(FIM): 3 (met) Shower Transfer(FIM): 3 (met) Additional Short Term Goals: 2-Verbalize Understanding, 3-ImproveStrength/Carolyn 1=Demonstrate adherence to instructed precautions during ADL tasks. 2=Patient will verbalize/demonstrate understanding of assistive devices/ modifications for ADL. 3=Patient will improve strength/tolerance for activity to enable patient to perform ADL's. OT Intelligence Manager Goals [place] Goals Time Frame: May 10, 2017 Eating (FIM): 7 (met --17) Eating (QC): 7 (met -12-17) Groomin (not met 04-25-) Oral Hygiene (QC): 6 (not met 04-25-17) Bathing(FIM): 5 (met 04-25-17) Shower/Bathe Self (QC): 5 (met 04-25-17) Upper Body Dressing(FIM): 6 (not met 04-25-17) Upper Body Dressing (QC): 6 (not met 04-25-17) Lower Body Dressing(FIM): 6 (not met 04-25-17) Lower Body Dressing (QC): 6 (not met 04-25-17) On/Off Footwear (QC): 6 (not met 04-25-17) Toileting(FIM): 6 (not met 04-25-17) Toileting Hygiene (QC): 6 (not met 04-25-17) Toilet/Commode Transfer(FIM): 6 (not met 04-25-17) Toilet/Commode Transfer (QC): 6 (not met 04-25-17) Shower Transfer(FIM): 6 (not met 04-25-17) Additional Goals: 2-Verbalize Understanding, 3-ImproveStrength/Carolyn 1=Demonstrate adherence to instructed precautions during ADL tasks. 2=Patient will verbalize/demonstrate understanding of assistive devices/ modifications for ADL. 3=Patient will improve strength/tolerance for activity to enable patient to perform ADL's. OT Education/Plan Problem List/Assessment Pt would benefit from skilled OT to increase his independence in basic self care to allow him to safely return to his home to live as independently as possible and to decrease caregiver burden. Discharge Recommendations Plan/Recommendations: Discharge/Goals Met (see tx plan for goals met) Treatment Plan/Plan of Care Patient would benefit from OT for education, treatment and training to promote independence in ADL's, mobility, safety and/or upper extremity function for ADL' s. Plan of Care: ADL Retraining, Functional Mobility, Group Exercise/Act as Ind ( education, exercise, mobility, functional activities, socialization), UE Neuromus Re-Ed/Coord Treatment Duration: May 10, 2017 Visits Per Week: 10-11 Minutes/Day (M-F): 75-90 Minutes/Day (Sat/Adame): PRN Agreement: Yes Rehab Potential: Fair Time/GCodes Start Time: 09:55 Stop Time: 11:25 Total Time Billed (hr/min): 90 Billed Treatment Time visit, 90 minutes ADL KLUSENER,TIAGO OT Apr 25, 2017 11:50
--- NOTE | 2017-04-25 13:57 | Therapy Team Discharge Summary ---
Therapy Discharge Summary Discharge Recommendations Date of Discharge Apr 25, 2017 at 11:40 Therapy D/C Recommendations: Assisted Living, Occupational Therapy Home Care Occupational Therapy Pt was seen for skilled OT to increase his independence with basic self care to allow him to safely return to his home at [facility]. On admission he was dependant with transfers, setup for bathing, eating, upper body dressing, toileting with urinal, grooming and needed mod assist with lower body dressing and min assist bathing. By discharge his transfers had improved to CGA/min assist with sliding board and he could bathe, dress and groom with setup. He toileted with setup with urinal but needed more help with toileting on BSC. Equipment used included bariatric transfer tub bench, bariatric BSC with drop arm, grab bars, long handled sponge. See tx plan for goals met. DC OT. Recommend continued home health OT. PT Snf Goals Tool Crib Lead Goals PT Snf Goals Time Frame: May 10, 2017 Transfers (B,C,W/C) (FIM): 5 Roll Left to Right (QC): 5 (met) Sit to Lying (QC): 5 (met) Lying-Sitting on Side/Bed(QC): 5 (met) Sit to Stand (QC): 9 Chair/Vhe-go-Aiwuw Xfer(QC): 5 Car Transfer (QC): 9 Does the Patient Walk: No and Walking Goal NOT indicated Does the Pt use WC or Scooter?: Yes Wheelchair (FIM): 5 (met) Wheelchair distance (FIM): 3=150 ft Distance: 300' Wheelchair Level of Assist: 5 (met) Wheel 50 feet with 2 turns (QC: 5 (met) 1 Step (curb) (QC): 9 4 Steps (QC): 9 12 Steps (QC): 9 Picking up an Object (QC): 4 OT Snf Goals Tool Crib Lead Goals Time Frame: May 10, 2017 Eating (FIM): 7 (met 6-12-17) Eating (QC): 7 (met 6-12-17) Oral Hygiene (QC): 6 (not met 6-12-17) Grooming(FIM): 6 (not met 6-12-17) Bathing(FIM): 5 (met 6-12-17) Shower/Bathe Self (QC): 5 (met 6-12-17) Upper Body Dressing(FIM): 6 (not met 04-25-17) Upper Body Dressing (QC): 6 (not met 04-25-17) Lower Body Dressing(FIM): 6 (not met 04-25-17) Lower Body Dressing (QC): 6 (not met 04-25-17) On/Off Footwear (QC): 6 (not met 04-25-17) Toileting(FIM): 6 (not met 04-25-17) Toileting Hygiene (QC): 6 (not met 04-25-17) Toilet/Commode Transfer(FIM): 6 (not met 04-25-17) Toilet/Commode Transfer (QC): 6 (not met 04-25-17) Shower Transfer(FIM): 6 (not met 04-25-17) Additional Goals: 2-Verbalize Understanding, 3-ImproveStrength/Carolyn 1=Demonstrate adherence to instructed precautions during ADL tasks. 2=Patient will verbalize/demonstrate understanding of assistive devices/ modifications for ADL. 3=Patient will improve strength/tolerance for activity to enable patient to perform ADL's. TIAGO KRUEGER OT Apr 25, 2017 13:57
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
== END 2017-04-25 11:40 | DRG 552 ==
LOC: UNDOADMIN 21:00 → ENPENDDIS 04-25 12:00
PROVIDERS: ADMIT Physical Medicine & Rehabilitation; ATTEND Physical Medicine & Rehabilitation
DX: M54.16 Radiculopathy, lumbar region (principal); G83.14 Monoplegia of lower limb affecting left nondominant side; E11.9 Type 2 diabetes mellitus without complications; I10 Essential (primary) hypertension; J44.9 Chronic obstructive pulmonary disease, unspecified; K59.00 Constipation, unspecified; R25.2 Cramp and spasm; Z79.84 Long term (current) use of oral hypoglycemic drugs; Z99.81 Dependence on supplemental oxygen
CPT/HCPCS: 36415; 72170; 80048; 80053; 82962; 83036; 84443; 85025; 85027; 87430; 94640; 94664; 94760

== ENCOUNTER 2017-07-29 05:34 | Outpatient (CLI) | payer MEDICARE, MEDICAID ==
[~2017-07-29] VITALS: Ht 172.7 cm; Wt 135.2 kg
[~2017-07-29 05:34] MED LIST changes: +ALBU18HF2 INH; +ALTERIL SLEEP AID PO; +ASPI-983 PO; +ATOR40TA70 PO; +CITA40TA11 PO; +CLON1TAB3 PO; +DOCU100C37 PO; +FURO20TA4 PO; +LEVO150T6 PO; +METF500T4 PO; +OXYC-465 PO; +POTA10TA10 PO; +PRD20T PO; +PREG225C PO; +RANI150T11 PO; +SODI30SP2 NS
[2017-08-01] MEDS ORDERED: DOCU-143 PO (12:15)
[2017-08-01] MEDS ORDERED: FLUT1DIS26 IH (12:15)
[2017-08-01] MEDS ORDERED: SERT100T8 PO (12:15)
[2017-08-01] MEDS ORDERED: CALC500T7 PO (12:15)
[2017-08-01] MEDS ORDERED: ESOM20CA32 PO (12:15)
[2017-08-01] MEDS ORDERED: ATOR40TA70 PO (12:15)
[2017-08-03] MEDS ORDERED: METO5TAB75 PO (13:41)
[2017-08-03] MEDS ORDERED: FLUC100T PO (13:41)
== END 2017-07-29 12:16 ==
LOC: PREOP 05:34
PROVIDERS: ATTEND Surgery
DX: Z01.818 Encounter for other preprocedural examination (principal); K21.9 Gastro-esophageal reflux disease without esophagitis

== ENCOUNTER 2017-08-03 09:54 | Day surgery (SDC) | payer MEDICARE, MEDICAID ==
[~2017-08-03] VITALS: Ht 172.7 cm; Wt 135.2 kg
[~2017-08-03 09:54] MED LIST changes: +CALC500T7 PO; +DOCU-143 PO; +ESOM20CA32 PO; +FLUT1DIS26 IH; +SERT100T8 PO
[2017-08-03] MEDS ORDERED: NS IV 500 ML 500 ML IV PRN (10:00)
[2017-08-03] MEDS ORDERED: LIDOCAINE JELLY 2% (XYLOCAINE) 5 ML TUBE MM PRN (10:15)
[2017-08-03] MEDS ORDERED: HURRICAINE EXT TUBE (BENZOCAINE) XX PRN (10:15)
[2017-08-03 10:33] VITALS: BP 109/63
--- NOTE | 2017-08-03 11:09 | Conscious Sedation/ASA ---
Conscious Sedation Pre-Proced Time Reviewed: 10:50 ASA Class: 2 Airway Mallampati Classification: (qagan [place] appropriate class) I. II. III, IV Lungs Heart ASA score ASA 1: a normal healthy patient ASA 2: a patient with a mild systemic disease (mid diabetes, controlled hypertension, obesity ASA 3: a patient with a severe systemic disease that limits activity (angina , COPD, prior Myocardial infarction) ASA 4: a patient with an incapacitating disease that is a constant threat to life (CHF, renal failure) ASA 5: a moribund patient not expected to survive 24 hrs. (ruptured aneurysm) ASA 6: a declared brain patient whose organs are being harvested. For emergent operations, add the letter E after the classification Grade 2 Sedation Plan: Analgesia, Amnesia, Plan communicated to team members, Discussed options with patient/fam, Discussed risks with patient/fam Note The patient is an appropriate candidate to undergo the planned procedure, sedation, and anesthesia. The patient immediately re-assessed prior to indication. SCARLETT YAN MD Aug 03, 2017 11:09
--- NOTE | 2017-08-03 11:10 | Progress Note-Pre Operative ---
Pre-Operative Progress Note H&P Reviewed The H&P was reviewed, patient examined and no changes noted. Date Seen by Provider: Aug 03, 2017 Time Seen by Provider: 11:00 Date H&P Reviewed: Aug 03, 2017 Time H&P Reviewed: 10:50 Pre-Operative Diagnosis: SCARLETT COTTON MD Aug 03, 2017 11:10
[2017-08-03] MEDS ORDERED: ACETAMINOPHEN 325 MG TABLET/CAPLET (TYLENOL) PO PRN (11:15)
[2017-08-03] MEDS ORDERED: HYDROcodone/APAP 5 MG/325 MG (LORTAB) TAB PO PRN (11:15)
[2017-08-03] MEDS ORDERED: ONDANSETRON 4 MG/2 ML (SDV) Z0FRAN IV PRN (11:15)
[2017-08-03] MEDS ORDERED: morphine INJ 10 MG/ML 1ML (SYR OR VIAL) IV PRN (11:15)
[2017-08-03] MEDS ORDERED: MIDAZOLAM 2 MG/2 ML (VERSED) VIAL ONE ×4 (12:12→12:48)
[2017-08-03] MEDS ORDERED: fentaNYL INJECTION 100 MCG/2 ML AMP ONE (12:13)
[2017-08-03] MEDS: fentaNYL INJECTION 100 MCG/2 ML AMP IVP PRN ×2 (12:30→12:52)
[2017-08-03] MEDS: MIDAZOLAM 2 MG/2 ML (VERSED) VIAL IVP PRN ×4 (12:33→12:55)
[2017-08-03 13:30] VITALS: BP 105/62
--- NOTE | 2017-08-03 13:36 | Progress Note-Post Operative ---
Post-Operative Progess Note Surgeon (s)/Revenue Coordinator (s) Surgeon SCARLETT YAN MD Revenue Coordinator: none Pre-Operative Diagnosis GERD Post-Operative Diagnosis esophageal candidiasis, small HH(2cm), gastroparesis. Procedure & Operative Findings Date of Procedure 08/03/17 Procedure Performed/Findings EGD with bx and brushings Anesthesia Type CS Estimated Blood Loss Estimated blood loss (mL): minimal Specimens/Packing Specimens Removed GE jxn, antrum. SCARLETT YAN MD Aug 03, 2017 1:36 pm
[2017-08-03] MEDS ORDERED: FLUC100T PO (13:41)
[2017-08-03] MEDS ORDERED: METO5TAB75 PO (13:41)
--- NOTE | 2017-08-03 13:42 | Discharge Inst-Surgical ---
D/C Lap Instructions-KIDO New, Converted, or Re-Newed RX: RX on Chart Follow Up PRN Activity as tolerated High Fiber Diet 25g or more per day Avoid Alcohol, Caffeine, Spicy [place] and Acid foods. Drink 64 fluid oz or more of fluids per day. Symptoms to Report: Fever over 101 degree F, Nausea/Vomiting If any problems/questions: Contact your physician or go to Emergency Room SCARLETT YAN MD Aug 03, 2017 1:42 pm
[2017-08-03 14:00] VITALS: BP 110/65
[2017-08-03 14:56] VITALS: BP 110/65
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
== END 2017-08-03 14:20 | disposition home or self-care (01) ==
LOC: ENDO 09:54
PROVIDERS: ATTEND Surgery
DX: K21.9 Gastro-esophageal reflux disease without esophagitis; Z99.81 Dependence on supplemental oxygen; E11.22 Type 2 diabetes mellitus with diabetic chronic kidney disease; Z68.42 Body mass index [BMI] 45.0-49.9, adult; E11.42 Type 2 diabetes mellitus with diabetic polyneuropathy; E03.9 Hypothyroidism, unspecified; Z79.84 Long term (current) use of oral hypoglycemic drugs; F32.9 Major depressive disorder, single episode, unspecified; D64.9 Anemia, unspecified; B37.81 Candidal esophagitis; F41.9 Anxiety disorder, unspecified; E66.01 Morbid (severe) obesity due to excess calories; J44.9 Chronic obstructive pulmonary disease, unspecified; Z79.899 Other long term (current) drug therapy; N18.9 Chronic kidney disease, unspecified; E78.5 Hyperlipidemia, unspecified; K44.9 Diaphragmatic hernia without obstruction or gangrene; G83.14 Monoplegia of lower limb affecting left nondominant side
CPT/HCPCS: 87101

== ENCOUNTER 2018-03-23 11:06 | Inpatient (IN) | payer MEDICARE, MEDICAID ==
[~2018-03-23] VITALS: Ht 172.7 cm; Wt 112.2 kg
[~2018-03-23 11:06] MED LIST changes: +FLUC100T PO; -METF500T4 PO; +METF500T5 PO; +METO5TAB75 PO
[2018-03-23] MEDS ORDERED: NS IV 1000 ML 1,000 ML IV SCH ×2 (11:15→13:30)
[2018-03-23] MEDS ORDERED: RT-ALBUTEROL/IPRATROPIUM 3 ML (DUONEB) VIAL INH ONE (11:15)
[2018-03-23 11:39] LABS: BASOPHILS % (AUTO) 0 % (0-10); EOSINOPHILS # (AUTO) 0.3 10^3/uL (0.0-0.3); EOSINOPHILS % (AUTO) 4 % (0-10); HEMATOCRIT 38 % (40-54); HEMOGLOBIN 11.6 G/DL (13.3-17.7); LYMPHOCYTES # (AUTO) 1.4 X 10^3 (1.0-4.0); LYMPHOCYTES % (AUTO) 20 % (12-44); MEAN CORPUSCULAR HEMOGLOBIN 27 PG (25-34); MEAN CORPUSCULAR HGB CONC 30 G/DL (32-36); MEAN CORPUSCULAR VOLUME 90 FL (80-99); MEAN PLATELET VOLUME 11.5 FL (7.4-10.4); MONOCYTES # (AUTO) 0.6 X 10^3 (0.0-1.0); MONOCYTES % (AUTO) 8 % (0-12); NEUTROPHILS # (AUTO) 4.7 X 10^3 (1.8-7.8); NEUTROPHILS % (AUTO) 68 % (42-75); PLATELET COUNT 199 10^3/uL (130-400); RED BLOOD COUNT 4.29 10^6/uL (4.35-5.85); RED CELL DISTRIBUTION WIDTH 15.5 % (10.0-14.5); WHITE BLOOD COUNT 6.9 10^3/uL (4.3-11.0)
[2018-03-23 11:59] LABS: ALANINE AMINOTRANSFERASE 8 U/L (0-55); ALBUMIN 3.6 GM/DL (3.2-4.5); ALKALINE PHOSPHATASE 75 U/L (40-136); BILIRUBIN,TOTAL 0.2 MG/DL (0.1-1.0); BUN/CREATININE RATIO 20; CALCIUM 9.1 MG/DL (8.5-10.1); CARBON DIOXIDE 30 MMOL/L (21-32); CHLORIDE 101 MMOL/L (98-107); GFR ESTIMATED > 60; GLUCOSE 103 MG/DL (70-105); POTASSIUM 5.5 MMOL/L (3.6-5.0); SODIUM 138 MMOL/L (135-145)
[2018-03-23] MEDS ORDERED: ASPIRIN 325 MG (5 GR) TABLET PO ONE (12:00)
--- NOTE | 2018-03-23 12:16 | Diagnostic Imaging Report ---
EXAMINATION: Portable semierect AP chest at 1141. INDICATION: Chest pain As on the prior exam of 02/02/2014 there is shallow inspiration. Allowing for this technical factor the heart size is within normal limits. There is a vague area of increased density near the left hemidiaphragm. This was present on the prior exam and is consequently more likely due to scar formation or chronic atelectasis than to an acute pneumonia. The lungs, where visualized are generally clear. The mediastinum is not widened. The osseous structures are intact. IMPRESSION: 1. There does appear to be some scar formation in the left lung base but there is no acute cardiopulmonary abnormality noted. 2. If further evaluation is desired, then a followup PA and lateral chest would be recommended. Dictated by: Dictated on workstation # [id number]
[2018-03-23] MEDS ORDERED: NS 250 ML (IVPB) BAG IV ONE (13:15)
[2018-03-23] MEDS ORDERED: IOHEXOL 350 MG/ML 150 ML (OMNIPAQUE 350) VIAL IV ONE (13:15)
[2018-03-23 13:23] LABS: INR 0.9 (0.8-1.4); PROTHROMBIN TIME PATIENT 12.6 SEC (12.2-14.7)
[2018-03-23 13:24] LABS: MAGNESIUM 2.2 MG/DL (1.8-2.4)
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
[2018-03-23 13:37] LABS: MYOGLOBIN SERUM 75.5 NG/ML (10.0-92.0)
--- NOTE | 2018-03-23 14:15 | Diagnostic Imaging Report ---
PROCEDURE: CT angiography of the chest with contrast. TECHNIQUE: Multiple contiguous axial images were obtained through the chest after uneventful bolus administration of intravenous contrast. Reconstructed CTA MIP acquisitions were also performed. INDICATION: Chest pain. COMPARISON: 10/18/2012. FINDINGS: There is no evidence of pulmonary embolus or thoracic aortic aneurysm. There is mild atherosclerosis. There is no pericardial effusion or pneumothorax. Heart size appears normal. There is moderate elevation of the right hemidiaphragm. There is moderate atelectasis or infiltrate in the lung bases bilaterally, more prominent on the right. There is no pleural fluid. No significant adenopathy is demonstrated. There is a calcified gallstone in the gallbladder. There is diffuse hepatic steatosis. Visualized upper abdomen is otherwise unremarkable. No acute osseous abnormality is demonstrated. There are degenerative changes in the spine. IMPRESSION: 1. No evidence of pulmonary embolus or other acute vascular abnormality. There is mild atherosclerosis. 2. There is moderate elevation of the right hemidiaphragm. 3. Bilateral basilar atelectasis or infiltrate, more prominent on the right. 4. Cholelithiasis 5. Mild diffuse hepatic steatosis. Dictated by: Dictated on workstation # [id number]
[2018-03-23] MEDS ORDERED: cefTRIAXone INJECTION 2,000 MG in NS (IVPB) 50 ML IV ONE (14:45)
[2018-03-23] MEDS ORDERED: cefTRIAXone 2 GM (ROCEPHIN) VIAL ONE (14:46)
[2018-03-23 15:54] LABS: BILIRUBIN,URINE NEGATIVE (NEGATIVE); CLARITY,URINE CLEAR; GLUCOSE, URINE (UA) NEGATIVE (NEGATIVE); KETONES,URINE NEGATIVE (NEGATIVE); LEUKOCYTE ESTERASE ,URINE 1+ (NEGATIVE); NITRITE,URINE NEGATIVE (NEGATIVE); PH,URINE 7 (5-9); PROTEIN,URINE NEGATIVE (NEGATIVE); UROBILINOGEN,URINE NORMAL (NORMAL)
[2018-03-23 15:55] LABS: COLOR,URINE YELLOW
[2018-03-23 15:58] LABS: BACTERIA,URINE NEGATIVE /HPF; SQUAMOUS EPITHELIAL CELL,UR 0-2 /HPF; WBC,URINE 0-2 /HPF
[2018-03-23 16:50] VITALS: BP 162/77
[2018-03-23] MEDS ORDERED: PIPERACILLIN/TAZO 4.5 GM/D5W 100 ML IVPB IV NR ×2 (17:30)
[2018-03-23] MEDS ORDERED: CATHETER FLUSH 10 ML SYR IV PRN (17:30)
[2018-03-23] MEDS: NS IV 1000 ML 1,000 ML IV SCH (17:38)
[2018-03-23] MEDS: RT-ALBUTEROL/IPRATROPIUM 3 ML (DUONEB) VIAL IH SCH (19:08)
[2018-03-23 20:00] VITALS: BP 144/62
[2018-03-23] MEDS: PREGABALIN 75 MG (LYRICA) CAP PO SCH (20:17)
[2018-03-23] MEDS: oxyCODONE/APAP 10/325MG (PERCOCET 10) TABLET PO PRN (20:18)
[2018-03-23] MEDS: clonazePAM 1 MG (KlonoPIN) TAB PO SCH (20:22)
[2018-03-23] MEDS ORDERED: NON-FORMULARY MEDICATION 1 EA EA (Clonazepam 1 MG) PO SCH (21:00)
[2018-03-23] MEDS ORDERED: PREGABALIN 225 MG PO SCH (21:00)
[2018-03-23] MEDS: PIPERACILLIN/TAZO 4.5 GM/D5W 100 ML IVPB IV SCH ×2 (23:09)
[2018-03-24] VITALS: BP 127/59
[2018-03-24] MEDS: RT-ALBUTEROL/IPRATROPIUM 3 ML (DUONEB) VIAL IH SCH ×4 (02:19→19:54)
[2018-03-24] MEDS: oxyCODONE/APAP 10/325MG (PERCOCET 10) TABLET PO PRN ×4 (02:30→18:32)
[2018-03-24 04:00] VITALS: BP 113/56
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
[2018-03-24 06:56] LABS: BASOPHILS % (AUTO) 0 % (0-10); EOSINOPHILS # (AUTO) 0.1 10^3/uL (0.0-0.3); EOSINOPHILS % (AUTO) 2 % (0-10); HEMATOCRIT 33 % (40-54); HEMOGLOBIN 9.9 G/DL (13.3-17.7); LYMPHOCYTES # (AUTO) 1.3 X 10^3 (1.0-4.0); LYMPHOCYTES % (AUTO) 22 % (12-44); MEAN CORPUSCULAR HEMOGLOBIN 27 PG (25-34); MEAN CORPUSCULAR HGB CONC 30 G/DL (32-36); MEAN CORPUSCULAR VOLUME 90 FL (80-99); MEAN PLATELET VOLUME 11.3 FL (7.4-10.4); MONOCYTES # (AUTO) 0.5 X 10^3 (0.0-1.0); MONOCYTES % (AUTO) 8 % (0-12); NEUTROPHILS # (AUTO) 3.8 X 10^3 (1.8-7.8); NEUTROPHILS % (AUTO) 67 % (42-75); PLATELET COUNT 165 10^3/uL (130-400); RED BLOOD COUNT 3.72 10^6/uL (4.35-5.85); WHITE BLOOD COUNT 5.7 10^3/uL (4.3-11.0)
[2018-03-24 07:17] LABS: ALANINE AMINOTRANSFERASE < 6 U/L (0-55); ALBUMIN 3.1 GM/DL (3.2-4.5); ALKALINE PHOSPHATASE 63 U/L (40-136); BILIRUBIN,TOTAL 0.1 MG/DL (0.1-1.0); BUN/CREATININE RATIO 14; CALCIUM 8.4 MG/DL (8.5-10.1); CARBON DIOXIDE 28 MMOL/L (21-32); CHLORIDE 104 MMOL/L (98-107); CREATININE SERUM 1.11 MG/DL (0.60-1.30); GFR ESTIMATED > 60; GLUCOSE 120 MG/DL (70-105); POTASSIUM 4.7 MMOL/L (3.6-5.0); SODIUM 140 MMOL/L (135-145); TOTAL PROTEIN 5.8 GM/DL (6.4-8.2)
[2018-03-24 07:33] LABS: CHOLESTEROL 112 MG/DL (< 200); HDL CHOLESTEROL 32 MG/DL (40-60); TRIGLYCERIDES 109 MG/DL (<150); VLDL CHOLESTEROL 22 MG/DL (5-40)
--- NOTE | 2018-03-24 07:38 | Diagnostic Imaging Report ---
Indication: Pneumonia. Comparison: Made with prior examination of 03/23/2018. Findings: There is cardiomegaly. There is some left basilar atelectasis and/or pneumonitis. Mild venous congestion. There is some elevation of the right hemidiaphragm. No pneumothorax. Mediastinum unremarkable. Impression: Cardiomegaly and some central pulmonary venous congestion with left basilar atelectasis and/or pneumonitis. Elevation of the right hemidiaphragm. Dictated by: Dictated on workstation # [id number]
[2018-03-24 08:00] VITALS: BP 95/54
[2018-03-24] MEDS: PIPERACILLIN/TAZO 4.5 GM/D5W 100 ML IVPB IV SCH ×6 (08:46→23:06)
[2018-03-24] MEDS: PREGABALIN 75 MG (LYRICA) CAP PO SCH ×2 (08:46→20:40)
--- NOTE | 2018-03-24 11:04 | History & Physical-Hospitalist ---
History of Present Illness HPI/Chief Complaint CC: Pneumonia HPI: This is a 72-year-old white male with recurrent pneumonia and multiple hospital stays of Dr. Pinto who resides at medical [place] at [facility] who presents to the ER with shortness of breath and fever and altered mental status. He was found to have bilateral pneumonia with hypoxia so he was required to be hospitalized to manage the mild acute respiratory insufficiency and IV antibiotics and close monitoring. I have reviewed all of his home medications I have held the metformin due to the CT angiogram IV contrast dye but he specifically wanted all of his pain medication and Lyrica restarted last night. He ambulates in a power chair and he reports that he feels much better today versus yesterday at admission. He denies any cough or pain issues and no hemoptysis. Source: patient Exam Limitations: no limitations Date Seen 03/24/18 Time Seen by Provider: 10:00 Attending Physician Ani Summers DO PCP Piero Pinto MD Referring Physician Date of Admission March 23, 2018 at 16:08 Home Medications & Allergies Home Medications Reviewed patient Home Medication Reconciliation performed by pharmacy medication reconciliations senior engineering technician and/or nursing. Patients Allergies have been reviewed. Allergies Allergies Coded Allergies meperidine (Verified Allergy, Unknown, 02/02/14) Past Cooeile-Pcdjld-Qztypu Hx Past Med/Social Hx: Reviewed Nursing Past Med/Soc Hx, Reviewed and Corrections made Patient Social History Marrital Status: single Employed/Student: retired Alcohol Use: Denies Use Recreational Drug Use: No Smoking Status: Former Smoker Type Used: Cigarettes Physical Abuse Screen: No Sexual Abuse: No Recent Foreign Travel: No Contact w/other who traveled: No Recent Hopitalizations: No Recent Infectious Disease Expo: No Immunizations Up To Date Tetanus Booster (TDap): Unknown Pediatric: Yes Date of Pneumonia Vaccine: Oct 19, 2012 Date of Influenza Vaccine: Oct 14, 2014 Seasonal Allergies Seasonal Allergies: No Past Medical History Surgeries: Orthopedic, Tonsillectomy Respiratory: COPD, Pneumonia Currently Using CPAP: No Currently Using BIPAP: No Cardiac: Hypertension Neurological: Paralysis (LLE) Reproductive: No Sexually Transmitted Disease: No HIV/AIDS: No Genitourinary: Renal Failure Gastrointestinal: Gastroesophageal Reflux, Chronic Constipation Musculoskeletal: Chronic Back Pain, Fractures Endocrine: Hypothyroidsim Psychosocial: Anxiety, Depression History of Blood Disorders: No Family History Cancer of mouth Cardiovascular disease G8 BROTHER Diabetes mellitus G8 BROTHER, Onset:50's - 60 Hypertension Review of Systems Constitutional: see HPI, chills, fever EENTM: no symptoms reported Respiratory: cough, dyspnea on exertion, short of breath, wheezing Cardiovascular: no symptoms reported Gastrointestinal: no symptoms reported Genitourinary: no symptoms reported Musculoskeletal: no symptoms reported Skin: no symptoms reported Psychiatric/Neurological: No Symptoms Reported All Other Systems Reviewed Negative Unless Noted: Yes Physical Exam Physical Exam Vital Signs Vital Signs - First Documented 03/23/18 11:33 Temp 97.2 Pulse 52 Resp 18 B/P (MAP) 91/60 (70) Capillary Refill : Less Than 3 Seconds General Appearance: No Apparent Distress, WD/WN, Chronically ill Eyes: Bilateral Eye Normal Inspection, Bilateral Eye PERRL HEENT: PERRL/EOMI, Normal ENT Inspection, Pharynx Normal Neck: Full Range of Motion, Normal Inspection, Non Tender, Supple, Carotid Bruit Respiratory: Chest Non Tender, No Accessory Muscle Use, No Respiratory Distress , Crackles, Decreased Breath Sounds, Wheezing Cardiovascular: Regular Rate, Rhythm, No Edema, No Gallop, No JVD, No Murmur, Normal Peripheral Pulses Gastrointestinal: Normal Bowel Sounds, No Organomegaly, No Pulsatile Mass, Non Tender, Soft Back: Normal Inspection, No CVA Tenderness, No Vertebral Tenderness Extremity: Normal Capillary Refill, Normal Inspection, Normal Range of Motion ( minimal ROM LE), Non Tender, No Calf Tenderness, No Pedal Edema Neurologic/Psychiatric: Alert, Oriented x3, No Motor/Sensory Deficits, Normal Mood/Affect, Motor Weakness (LLE) Skin: Normal Color, Warm/Dry Lymphatic: No Adenopathy Results Results/Procedures Labs Laboratory Tests 03/23/18 11:29 03/24/18 06:42 Patient resulted labs reviewed. Assessment/Plan Admission Diagnosis Assessment: Pneumonia facility acquired from long term COPD Hypertension LLE paralysis since 1995 Chronic pain Plan: Abx Home meds Pain meds O2 Nebs Admission Status: Inpatient Order (span 2 midnights) Reason for Inpatient Admission: IV abx for resistant bacterial infection from [place] Diagnosis/Problems Diagnosis/Problems (1) Pneumonia Status: Acute Qualifiers: Pneumonia type: due to unspecified organism Laterality: bilateral Lung location: lower lobe of lung Qualified Codes: J18.1 - Lobar pneumonia, unspecified organism (2) COPD (chronic obstructive pulmonary disease) Status: Acute Qualifiers: COPD type: unspecified COPD Qualified Codes: J44.9 - Chronic obstructive pulmonary disease, unspecified (3) Former smoker Status: Chronic (4) Chronic pain Status: Chronic (5) 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
[2018-03-24] MEDS ORDERED: BISA10SU58 RC (11:32)
[2018-03-24] MEDS ORDERED: MAGN400O7 PO (11:32)
[2018-03-24] MEDS ORDERED: POLY17PO6 PO (11:32)
[2018-03-24] MEDS ORDERED: ESOM20CA PO (11:32)
[2018-03-24] MEDS ORDERED: CALC-233 PO (11:32)
[2018-03-24] MEDS ORDERED: BISACODYL 10 MG SUPP (DULCOLAX) RC PRN (11:45)
[2018-03-24] MEDS ORDERED: RT-ALBUTEROL SULF 2.5 MG/3 ML PRE-MIX VIAL INH PRN (11:45)
[2018-03-24] MEDS ORDERED: [UNRECOGNIZED DRUG - OTHER] PO PRN (11:45)
[2018-03-24] MEDS ORDERED: MILK OF MAGNESIA 400 MG/5 ML 30 ML UDC PO PRN (11:45)
[2018-03-24 12:00] VITALS: BP 107/59
[2018-03-24] MEDS ORDERED: CALCIUM CARBONATE 500 MG (TUMS) TAB.CHEW PO PRN (12:30)
[2018-03-24] MEDS ORDERED: SALINE NASAL SPRAY (OCEAN) 45 ML BTL PRN (12:30)
[2018-03-24] MEDS ORDERED: NON-FORMULARY MEDICATION 1 EA EA (Clonazepam 0.25 MG) PO SCH (13:00)
[2018-03-24] MEDS: clonazePAM 0.5 MG (KlonoPIN) TAB PO SCH (13:37)
[2018-03-24] MEDS: NS IV 1000 ML 1,000 ML IV SCH (13:38)
[2018-03-24 16:00] VITALS: BP 128/66
[2018-03-24 19:15] VITALS: BP 117/66
[2018-03-24] MEDS: RT-ADVAIR HFA 115/21 MCG PER PUFF IH SCH (19:54)
[2018-03-24] MEDS: BACLOFEN 10 MG (LIORESAL) TAB PO SCH (20:40)
[2018-03-24] MEDS: ATORVASTATIN 40 MG (LIPITOR) TABLET PO SCH (20:40)
[2018-03-24] MEDS: POLYETHYLENE GLYCOL 17 GM (MIRALAX) PACK PO SCH (20:40)
[2018-03-24] MEDS: clonazePAM 1 MG (KlonoPIN) TAB PO SCH (20:40)
[2018-03-24] MEDS: DOCUSATE SODIUM 100 MG (COLACE) CAP PO SCH (20:40)
[2018-03-24] MEDS: meTOprolol TARTRATE 25 MG (LOPRESSOR) TABLET PO SCH (20:47)
[2018-03-25 00:27] VITALS: BP 131/74
[2018-03-25] MEDS: oxyCODONE/APAP 10/325MG (PERCOCET 10) TABLET PO PRN ×4 (01:09→19:49)
[2018-03-25] MEDS: RT-ALBUTEROL/IPRATROPIUM 3 ML (DUONEB) VIAL IH SCH ×4 (03:35→20:13)
[2018-03-25 04:06] VITALS: BP 129/61
[2018-03-25] MEDS: PANTOPRAZOLE 20 MG TABLET (PROTONIX) PO SCH (05:45)
[2018-03-25] MEDS: RT-ADVAIR HFA 115/21 MCG PER PUFF IH SCH ×2 (07:37→20:13)
[2018-03-25] MEDS: PIPERACILLIN/TAZO 4.5 GM/D5W 100 ML IVPB IV SCH ×6 (08:54→23:43)
[2018-03-25] MEDS: clonazePAM 0.5 MG (KlonoPIN) TAB PO SCH ×2 (08:55→13:40)
[2018-03-25] MEDS: ASPIRIN E.C. 81 MG (ECOTRIN) TAB PO SCH (08:55)
[2018-03-25] MEDS: PREGABALIN 75 MG (LYRICA) CAP PO SCH ×2 (08:56→22:14)
[2018-03-25] MEDS: meTOprolol TARTRATE 25 MG (LOPRESSOR) TABLET PO SCH ×2 (08:56→22:13)
[2018-03-25] MEDS: BACLOFEN 10 MG (LIORESAL) TAB PO SCH ×2 (08:57→22:13)
[2018-03-25] MEDS: SERTRALINE 100 MG (ZOLOFT) TAB PO SCH (08:57)
[2018-03-25] MEDS: FUROSEMIDE 20 MG (LASIX) TAB PO SCH (08:57)
[2018-03-25] MEDS: POLYETHYLENE GLYCOL 17 GM (MIRALAX) PACK PO SCH (08:57)
[2018-03-25] MEDS: DOCUSATE SODIUM 100 MG (COLACE) CAP PO SCH ×2 (08:57→20:26)
[2018-03-25] MEDS: LEVOTHYROXINE 150 MCG (LEVOTHROID) TAB PO SCH (09:03)
[2018-03-25] MEDS: NS IV 1000 ML 1,000 ML IV SCH ×2 (09:06→20:22)
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
[2018-03-25 11:09] VITALS: BP 136/69
[2018-03-25] MEDS ORDERED: KCL 10 MEQ TAB (MICRO K) PO SCH (11:45)
[2018-03-25 15:25] VITALS: BP 121/65
[2018-03-25 22:14] VITALS: BP 128/70
[2018-03-25] MEDS: ATORVASTATIN 40 MG (LIPITOR) TABLET PO SCH (22:14)
[2018-03-25] MEDS: clonazePAM 1 MG (KlonoPIN) TAB PO SCH (22:14)
[2018-03-26] VITALS: BP 110/58
[2018-03-26] MEDS: RT-ALBUTEROL/IPRATROPIUM 3 ML (DUONEB) VIAL IH SCH ×4 (02:57→19:06)
[2018-03-26 03:57] VITALS: BP 115/64
[2018-03-26 06:09] VITALS: BP 117/67
[2018-03-26] MEDS: PANTOPRAZOLE 20 MG TABLET (PROTONIX) PO SCH (06:11)
[2018-03-26 08:00] VITALS: BP 133/66
[2018-03-26] MEDS: PIPERACILLIN/TAZO 4.5 GM/D5W 100 ML IVPB IV SCH ×4 (08:13→15:26)
[2018-03-26] MEDS: DOCUSATE SODIUM 100 MG (COLACE) CAP PO SCH ×2 (08:15→21:06)
[2018-03-26] MEDS: FUROSEMIDE 20 MG (LASIX) TAB PO SCH (08:15)
[2018-03-26] MEDS: PREGABALIN 75 MG (LYRICA) CAP PO SCH ×2 (08:15→21:06)
[2018-03-26] MEDS: ASPIRIN E.C. 81 MG (ECOTRIN) TAB PO SCH (08:15)
[2018-03-26] MEDS: clonazePAM 0.5 MG (KlonoPIN) TAB PO SCH ×2 (08:15→14:05)
[2018-03-26] MEDS: SERTRALINE 100 MG (ZOLOFT) TAB PO SCH (08:15)
[2018-03-26] MEDS: meTOprolol TARTRATE 25 MG (LOPRESSOR) TABLET PO SCH ×2 (08:15→21:06)
[2018-03-26] MEDS: BACLOFEN 10 MG (LIORESAL) TAB PO SCH ×2 (08:16→21:07)
[2018-03-26] MEDS: POLYETHYLENE GLYCOL 17 GM (MIRALAX) PACK PO SCH (08:19)
[2018-03-26] MEDS: LEVOTHYROXINE 150 MCG (LEVOTHROID) TAB PO SCH (08:19)
[2018-03-26] MEDS: RT-ADVAIR HFA 115/21 MCG PER PUFF IH SCH ×2 (09:00→19:06)
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
[2018-03-26 15:52] VITALS: BP 123/65
[2018-03-26] MEDS: ATORVASTATIN 40 MG (LIPITOR) TABLET PO SCH (21:06)
[2018-03-26] MEDS: clonazePAM 1 MG (KlonoPIN) TAB PO SCH (21:32)
[2018-03-27 00:06] VITALS: BP 128/64
[2018-03-27] MEDS: PIPERACILLIN/TAZO 4.5 GM/D5W 100 ML IVPB IV SCH ×4 (00:28→08:38)
[2018-03-27] MEDS: oxyCODONE/APAP 10/325MG (PERCOCET 10) TABLET PO PRN (00:30)
[2018-03-27] MEDS: NS IV 1000 ML 1,000 ML IV SCH (02:03)
[2018-03-27] MEDS: RT-ALBUTEROL/IPRATROPIUM 3 ML (DUONEB) VIAL IH SCH ×2 (02:55→10:09)
[2018-03-27] MEDS: PANTOPRAZOLE 20 MG TABLET (PROTONIX) PO SCH (06:06)
--- NOTE | 2018-03-27 06:51 | Pulmonary Progress Note ---
Subjective Time Seen by Provider: 08:09 Subjective/Events-last exam SOB and NPC Exam Exam Vital Signs Date Time Temp Pulse Resp B/P (MAP) Pulse Ox O2 Delivery O2 Flow Rate FiO2 03/27/18 02:56 98 Nasal Cannula 3.00 03/27/18 00:06 97.9 70 18 128/64 (85) 94 Nasal Cannula 3.00 03/26/18 21:10 Nasal Cannula 2.00 03/26/18 19:08 94 Nasal Cannula 3.00 03/26/18 15:52 97.0 67 18 123/65 (84) 94 Nasal Cannula 3.00 03/26/18 15:38 94 Nasal Cannula 3.00 03/26/18 09:05 Nasal Cannula 3.00 98 03/26/18 09:00 Nasal Cannula 2.00 03/26/18 09:00 94 Nasal Cannula 3.00 03/26/18 08:00 97.1 59 18 133/66 (88) 94 Nasal Cannula 3.00 I & O 03/27/18 07:00 Intake Total 1622 ml Output Total 2675 ml Balance -1053 ml General Appearance: No Apparent Distress, Chronically ill HEENT: PERRL/EOMI, Normal ENT Inspection, Pharynx Normal Neck: Full Range of Motion, Normal Inspection, Non Tender, Supple, Carotid Bruit Respiratory: Chest Non Tender, Lungs Clear, Normal Breath Sounds, No Accessory Muscle Use, No Respiratory Distress Cardiovascular: Regular Rate, Rhythm, No Edema, No Gallop, No JVD, No Murmur Capillary Refill: Less Than 3 Seconds Extremity: Normal Inspection, Normal Range of Motion, Non Tender, No Calf Tenderness, No Pedal Edema Neurologic/Psychiatric: Alert Skin: Normal Color, Warm/Dry Lymphatic: No Adenopathy Assessment/Plan Assessment/Plan CP Hx of severe COPD -Oxygen -Advair -SVNs Atelectasis - no leukocytosis and no fever - doubt pneumonia Pt is ok for discharge from pulmonary standpoint. CAITIE ESCOBAR DO March 27, 2018 06:51
[2018-03-27 08:00] VITALS: BP 102/59
[2018-03-27] MEDS: BACLOFEN 10 MG (LIORESAL) TAB PO SCH (08:38)
[2018-03-27] MEDS: POLYETHYLENE GLYCOL 17 GM (MIRALAX) PACK PO SCH (08:39)
[2018-03-27] MEDS: PREGABALIN 75 MG (LYRICA) CAP PO SCH (08:39)
[2018-03-27] MEDS: SERTRALINE 100 MG (ZOLOFT) TAB PO SCH (08:39)
[2018-03-27] MEDS: LEVOTHYROXINE 150 MCG (LEVOTHROID) TAB PO SCH (08:39)
[2018-03-27] MEDS: DOCUSATE SODIUM 100 MG (COLACE) CAP PO SCH (08:39)
[2018-03-27] MEDS: FUROSEMIDE 20 MG (LASIX) TAB PO SCH (08:39)
[2018-03-27] MEDS: ASPIRIN E.C. 81 MG (ECOTRIN) TAB PO SCH (08:39)
[2018-03-27] MEDS: clonazePAM 0.5 MG (KlonoPIN) TAB PO SCH ×2 (08:40→12:17)
[2018-03-27] MEDS: meTOprolol TARTRATE 25 MG (LOPRESSOR) TABLET PO SCH (08:42)
[2018-03-27] MEDS: RT-ADVAIR HFA 115/21 MCG PER PUFF IH SCH (10:11)
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
[2018-03-27] MEDS ORDERED: AMOX-358 PO (11:28)
--- NOTE | 2018-03-27 11:30 | Discharge Inst-Simple/Standard ---
Discharge Inst-Standard Discharge Medications New, Converted or Re-Newed RX: Call to Patients Pharmacy Patient Instructions/Follow Up Plan of Care/Instructions/FU: Please continue to take your medications as written. Activity as Tolerated: Yes Discharge Diet: No Restrictions Return to The Hospital For: Increasing SOB, chest pain, fevers, if you feel you are getting worse. AYAN VAUGHAN MD March 27, 2018 11:30
[2018-03-27 12:36] VITALS: BP 102/59
== END 2018-03-27 14:15 | DRG 194 ==
LOC: EDUNIT# 11:06 → ER 11:09 → 4TH 16:08
PROVIDERS: ADMIT Internal Medicine; ATTEND Internal Medicine
DX: J18.9 Pneumonia, unspecified organism (principal); J98.11 Atelectasis; J44.0 Chronic obstructive pulmonary disease with (acute) lower respiratory infection; R11.0 Nausea; E11.9 Type 2 diabetes mellitus without complications; E03.9 Hypothyroidism, unspecified; M94.0 Chondrocostal junction syndrome [Tietze]; I10 Essential (primary) hypertension; K59.09 Other constipation; M54.9 Dorsalgia, unspecified; F41.9 Anxiety disorder, unspecified; F32.9 Major depressive disorder, single episode, unspecified; G89.29 Other chronic pain; D64.9 Anemia, unspecified; G83.14 Monoplegia of lower limb affecting left nondominant side; V89.2XXS Person injured in unspecified motor-vehicle accident, traffic, sequela; Z87.01 Personal history of pneumonia (recurrent); Z87.891 Personal history of nicotine dependence; Z99.81 Dependence on supplemental oxygen
CPT/HCPCS: 36415; 71045; 71275; 80053; 80061; 81000; 82962; 83605; 83735; 83874; 84484; 85025; 85379; 85610; 85730; 87040; 93005; 93041; 94640; 94760; 96361; 96374

== ENCOUNTER 2018-04-15 10:23 | Emergency (ER) | payer MEDICARE, MEDICAID ==
[~2018-04-15] VITALS: Ht 172.7 cm; Wt 115.8 kg
[~2018-04-15 10:23] MED LIST changes: +AMOX-358 PO; +BISA10SU58 RC; +CALC-233 PO; +ESOM20CA PO; +MAGN400O7 PO; +POLY17PO6 PO
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
[2018-04-15 10:42] VITALS: BP 107/56
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
--- NOTE | 2018-04-15 11:47 | Diagnostic Imaging Report ---
PROCEDURE: CT head and CT cervical spine without contrast. TECHNIQUE: Multiple contiguous axial images were obtained through the brain and cervical spine without the use of intravenous contrast. Sagittal and coronal reformations through the cervical spine were then performed. INDICATION: Fall, hematoma COMPARISON: 09/02/2010 FINDINGS: No intracranial hemorrhage. Age-appropriate volume loss. Periventricular and subcortical white matter hypodensities are present, most consistent with mild chronic small vessel white matter ischemic disease. No intracranial mass, mass effect, midline shift, herniation, hydrocephalus, or extra-axial fluid collection. No definite CT evidence of an acute ischemic infarction. The globes are intact. Small hematoma associated with the left forehead. No underlying calvarial fracture. Otherwise, the calvarium and extracalvarial soft tissues are unremarkable. The paranasal sinuses are clear. Straightening of the normal cervical lordosis. No significant anterolisthesis or retrolisthesis. Alignment of the atlantooccipital joint is well maintained. Vertebral body heights are well-maintained. Multilevel disc space height loss, particularly at C5/C6 and C6/C7 where it is moderate to severe in nature. No acute fracture or dislocation. No destructive osseous process. Scattered facet joint degenerative changes and uncovertebral joint hypertrophy resulting in multilevel bilateral neuroforaminal stenosis. No high-grade osseous central canal stenosis. Scattered vascular calcifications. No apical pneumothorax. IMPRESSION: No acute intracranial abnormality with mild chronic small vessel white matter ischemic disease. Small left forehead hematoma without underlying calvarial fracture. Mild to moderate multilevel degenerative changes within the cervical spine without acute osseous abnormality. Dictated by: Dictated on workstation # [id number]
[2018-04-15 12:02] VITALS: BP 107/56
== END 2018-04-15 12:02 | disposition home or self-care (01) ==
LOC: EDUNIT# 10:23 → ER 10:26
DX: S00.93XA Contusion of unspecified part of head, initial encounter (principal); R40.2142 Coma scale, eyes open, spontaneous, at arrival to emergency department; R40.2252 Coma scale, best verbal response, oriented, at arrival to emergency department; R40.2362 Coma scale, best motor response, obeys commands, at arrival to emergency department; E03.9 Hypothyroidism, unspecified; F41.9 Anxiety disorder, unspecified; F32.9 Major depressive disorder, single episode, unspecified; K21.9 Gastro-esophageal reflux disease without esophagitis; I10 Essential (primary) hypertension; J44.9 Chronic obstructive pulmonary disease, unspecified; G83.9 Paralytic syndrome, unspecified; F17.210 Nicotine dependence, cigarettes, uncomplicated; Z90.89 Acquired absence of other organs; Z87.81 Personal history of (healed) traumatic fracture; Z79.51 Long term (current) use of inhaled steroids; Z79.82 Long term (current) use of aspirin; Z79.84 Long term (current) use of oral hypoglycemic drugs; Z88.5 Allergy status to narcotic agent; Z87.2 Personal history of diseases of the skin and subcutaneous tissue; W06.XXXA Fall from bed, initial encounter
CPT/HCPCS: 70450; 72125